=== PATIENT | female | born 1935 | race African-American/Black ===

== ENCOUNTER 2016-07-27 11:44 | Inpatient (IN) | payer MEDICARE, OTHER ==
[~2016-07-27] VITALS: Ht 163.8 cm; Wt 101.9 kg
[~2016-07-27 11:44] MED LIST: ACET325T9 PO; ALPR0.25 PO; AMLO10TA2 PO; ARIP2TAB PO; ATOR40TA59 PO; CETI10TA16 PO; CITA20TA9 PO; CLON0.3T PO; DIPH25CA58 PO; FURO-68 PO; FURO80TA72 PO; HYDR100T24 PO; INSU100C4 SQ; INSU100I17 SQ; INSU100I18 SQ; IPRA3AMP23 IH; ISOS60TA PO; LORA10TA3 PO; LOSA100T6 PO; MAGN400O4 PO; METO100T11 PO; METO100T2 PO; NITR0.4T SL; ONDA4TAB7 PO; PANT40TA3 PO; POLY17PO29 PO; POTASSIUM CHLO10 MEQ PO; SENN8.6T99 PO
[2016-07-27] MEDS ORDERED: IV NORMAL SALINE 500ML BAG 500 ML IV ONE (12:30)
--- NOTE | 2016-07-27 12:40 | PHYS DOC ---
Past Medical History Past Medical History: Anxiety, Bronchitis, Depression, Diabetes-Type II, Hypertension Additional Past Medical Histor: DIARRHEA, URIS, GEN PAIN, N/V, ESOPHAGITIS Past Surgical History: Cholecystectomy, Tonsillectomy, Other Additional Past Surgical Histo: hernia repair Alcohol Use: None Drug Use: None Adult General Chief Complaint Chief Complaint: OTHER COMPLAINTS [facility] HPI Patient is a 81 year old female who presents from nursing facility for acute renal failure. She has not been eating well because she does not like the food. She otherwise denies fever or chills, nausea or vomiting, abdominal pain , constipation, dysuria. States she has loose stools, infrequently, for some time. She denies chest pain, dizziness, lightheadedness. Nursing facility marc labs this morning noting a BUN of 71 and a creatinine of 3.3. Review of Systems Review of Systems Constitutional: Denies fever or chills [] Eyes: Denies change in visual acuity, redness, or eye pain [] HENT: Denies nasal congestion or sore throat [] Respiratory: Denies cough or shortness of breath [] Cardiovascular: No additional information not addressed in HPI [] GI: Denies abdominal pain, nausea, vomiting, bloody stools or diarrhea [] : Denies dysuria or hematuria [] Musculoskeletal: Denies back pain or joint pain [] Integument: Denies rash or skin lesions [] Neurologic: Denies headache, focal weakness or sensory changes [] Endocrine: Denies polyuria or polydipsia [] Current Medications Current Medications Current Medications Medications (Trade) Dose Ordered Sig/Mateo Start Time Stop Time Status Last Admin Dose Admin Acetaminophen (Tylenol) 650 mg PRN Q4HRS PRN 07/27/16 12:45 07/28/16 12:44 Ondansetron HCl (Zofran) 4 mg PRN Q8HRS PRN 07/27/16 12:45 07/28/16 12:44 Sodium Chloride (Iv Sodium Chloride 0.9% 500ml Bag) 500 ml @ 500 mls/hr 1X ONCE 07/27/16 12:30 07/27/16 13:29 Allergies Allergies Allergies Coded Allergies Type Severity Reaction Last Updated Verified Penicillins Allergy Intermediate "Throat itches and closes up" PER PT NO ALLERGY 07/27/16 Yes aspirin Adverse Reaction Intermediate Nausea and Vomiting 07/27/16 Yes Physical Exam Physical Exam Constitutional: Well developed, well nourished, no acute distress, non-toxic appearance. [] HENT: Normocephalic, atraumatic, bilateral external ears normal, oropharynx moist, nose normal. [] Eyes: PERRLA, EOMI, conjunctiva normal, no discharge. [] Neck: Normal range of motion, supple. [] Cardiovascular:Heart rate regular rhythm [] Lungs & Thorax: Bilateral breath sounds clear to auscultation [] Abdomen: Bowel sounds normal, soft, no tenderness. [] Skin: Warm, dry, no erythema, no rash. [] Back: No tenderness, no CVA tenderness. [] Extremities: No tenderness, ROM intact, no edema. [] Neurologic: Alert and oriented to self and situation and place, normal motor function, normal sensory function, no focal deficits noted. [] Psychologic: Affect normal, judgement normal, mood normal. [] Current Patient Data Vital Signs Vital Signs Date Time Temp Pulse Resp B/P Pulse Ox O2 Delivery O2 Flow Rate FiO2 07/27/16 11:49 97.5 64 16 132/63 95 Room Air 97.5 Course & Med Decision Making Course & Med Decision Making Labs sent. External labs viewed showing acute renal failure. Discussed case with Dr. Tang, who agrees with admission and recommends nephrology consultation. Nephrology consult placed. Dragon Disclaimer Dragon Disclaimer This electronic medical record was generated, in whole or in part, using a voice recognition dictation system. Departure Departure Impression: Primary Impression: Acute renal failure Disposition: ADMITTED INPATIENT Condition: STABLE Referrals: YURY TANG MD (PCP) Problem Qualifiers Primary Impression: Acute renal failure Acute renal failure type: unspecified Qualified Code: N17.9 - Acute kidney failure, unspecified Jj CEJA MD July 27, 2016 12:40
[2016-07-27] MEDS ORDERED: IV NORMAL SALINE 1000ML BAG 1,000 ML IV ONE (12:45)
[2016-07-27] MEDS ORDERED: ACETAMINOPHEN 325 MG TABLET. PO PRN ×2 (12:45→18:15)
[2016-07-27] MEDS ORDERED: ONDANSETRON PF 4 MG/2 ML VIAL. IV PRN (12:45)
[2016-07-27 13:12] LABS: BILIRUBIN,URINE NEGATIVE (NEG); GLUCOSE,URINE NEGATIVE (NEG); NITRITE,URINE POSITIVE (NEG); PH,URINE 5.5; PROTEIN,URINE NEGATIVE (NEG-TRACE); UROBILINOGEN,URINE 0.2 mg/dL (0.2 mg/dL)
[2016-07-27 13:24] LABS: BACTERIA,URINE MANY /HPF (0-FEW); RBC,URINE 0 /HPF (0-2); SQUAMOUS EPITHELIAL CELL,UR OCC /LPF
[2016-07-27 13:29] LABS: BASO # 0.1 x10^3/uL (0.0-0.2); BASO % 1 % (0-3); EOS % 1 % (0-3); HEMOGLOBIN 10.3 g/dL (12.0-15.5); LYMPH # 2.6 x10^3/uL (1.0-4.8); LYMPH % 35 % (24-48); MEAN CORPUSCULAR HEMOGLOBIN 28 pg (25-35); MEAN CORPUSCULAR HGB CONC 32 g/dL (31-37); MEAN CORPUSCULAR VOLUME 88 fL (79-100); MONO % 14 % (0-9); NEUT % 49 % (31-73); PLATELET COUNT 237 x10^3/uL (140-400); RED BLOOD COUNT 3.65 x10^6/uL (3.50-5.40); RED CELL DISTRIBUTION WIDTH 14.7 % (11.5-14.5); WHITE BLOOD COUNT 7.5 x10^3/uL (4.0-11.0)
[2016-07-27 13:35] LABS: CALCIUM 9.5 mg/dL (8.5-10.1); CREATININE 3.7 mg/dL (0.6-1.0); GFR 14.3; POTASSIUM 4.9 mmol/L (3.5-5.1)
[2016-07-27 14:00] VITALS: BP 109/50
--- NOTE | 2016-07-27 14:47 | PDOC2 ---
CONSULT Date of Consult Date of Consult DATE: 07/27/16 TIME: 14:46 Reason for Consult Reason for Consult: kulwinder/ ckd iii Referring Physician Referring Physician: Dr Pamela Rios Identification/Chief Complaint Chief Complaint none from pt Problems: Source Source: Chart review, Patient History of Present Illness Reason for Visit: as dictated Past Medical History Cardiovascular: HTN, Hyperlipidemia Pulmonary: Pneumonia GI: GERD, Other Heme/Onc: Anemia NOS Psych: Depression Musculoskeletal: Osteoarthritis, Other Renal/: Chronic renal insuff, Acute renal failure Endocrine: Diabetes, Other Past Surgical History Past Surgical History: Hysterectomy Social History ALCOHOL: none Drugs: None Lives: [facility] Current Problem List Problem List Problems Medical Problems: (1) Acute renal failure Status: Acute Current Medications Current Medications Current Medications Sodium Chloride (Iv Sodium Chloride 0.9% 500ml Bag) 500 ml @ 500 mls/hr 1X ONCE IV ; Start 07/27/16 at 12:30; Stop 07/27/16 at 13:29; Status DC Ondansetron HCl (Zofran) 4 mg PRN Q8HRS PRN IV NAUSEA/VOMITING; Start 07/27/16 at 12:45; Stop 07/28/16 at 12:44 Acetaminophen 650 mg 650 mg PRN Q4HRS PRN PO FEVER; Start 07/27/16 at 12:45; Stop 07/28/16 at 12:44 Sodium Chloride (Iv Sodium Chloride 0.9% 1000ml Bag) 1,000 ml @ 75 mls/hr 1X ONCE IV Last administered on 07/27/16t 14:43; Start 07/27/16 at 12:45; Stop at 02:04 Active Scripts Active Reported Zofran (Ondansetron Hcl) 4 Mg Tablet 1 Tab PO Q6HRS PRN Senokot (Sennosides) 8.6 Mg Tablet 1 Tab PO BID Potassium Chloride 10 Meq Capsule.er 10 Meq PO BID Miralax (Polyethylene Glycol 3350) 17 Gm Powd.pack 1 Packet PO DAILY Imdur (Isosorbide Mononitrate) 60 Mg Tab.er.24h 1 Tab PO DAILY Cetirizine Hcl 10 Mg Tablet 1 Tab PO DAILY Abilify (Aripiprazole) 2 Mg Tablet 1 Tab PO HS Metoprolol Tartrate 100 Mg Tablet 100 Mg PO BID Lasix (Furosemide) 80 Mg Tablet 80 Mg PO Milk Of Magnesia (Magnesium Hydroxide) 400 Mg/5 Ml Oral.susp 400 Mg PO Nitrostat (Nitroglycerin) 0.4 Mg Tab.subl 0.4 Mg SL Novolog (Insulin Aspart) 100 Unit/1 Ml Cartridge 22 Unit SQ BID Protonix (Pantoprazole Sodium) 40 Mg Tablet.dr 40 Mg PO DAILY06 Losartan Potassium 100 Mg Tablet 100 Mg PO QID Loratadine 10 Mg Tablet 10 Mg PO HS Hydralazine Hcl 100 Mg Tablet 100 Mg PO DAILY06 Clonidine Hcl 0.3 Mg Tablet 0.3 Mg PO TID Celexa (Citalopram Hydrobromide) 20 Mg Tablet 30 Mg PO HS Atorvastatin Calcium 40 Mg Tablet 40 Mg PO HS Amlodipine Besylate 10 Mg Tablet 5 Mg PO DAILY Abilify (Aripiprazole) 2 Mg Tablet 2 Mg PO HS Xanax (Alprazolam) 0.25 Mg Tablet 0.25 Mg PO PRN Q8HRS PRN Novolog Flexpen (Insulin Aspart) 100 Unit/1 Ml Insuln.pen 12 Unit SQ TIDAC Milk Of Magnesia (Magnesium Hydroxide) 400 Mg/5 Ml Oral.susp 400 Mg PO PRN Q4HRS PRN Levemir Flexpen (Insulin Detemir) 100 Unit/1 Ml Insuln.pen 45 Unit SQ BID Benadryl (Diphenhydramine Hcl) 25 Mg Capsule 25 Mg PO PRN Q8HRS PRN Duoneb 0.5 Mg-3 Mg/3 Ml Soln (Ipratropium/Albuterol Sulfate) 3 Ml Ampul.neb 3 Ml IH PRN Q4HRS Tylenol (Acetaminophen) 325 Mg Tablet 325 Mg PO PRN Q6HRS Allergies Allergies: Coded Allergies: Penicillins (Verified Allergy, Intermediate, "Throat itches and closes up " PER PT NO ALLERGY, 07/27/16) aspirin (Verified Adverse Reaction, Intermediate, Nausea and Vomiting, 07/27) ROS Review of System GEN: no Fevers no Chills EYES: no new Visual Complaints ENT: no EN Drainage no Hearing deficiets CVS: no Orthopnea no CP RESP: no SOB no MOSQUERA GI: + Nausea no Vomiting + Ch Diarrhea : no Dysuria no Urgency HEME: no easy bruising no Palp Ly Nodes NEURO no Focal Weakness no Sz PSYCH: no Suicidal Ideation ch Depression SKIN: no Rashes ENDO: no Polyuria or Polydipsia no Hot/Cold Intolerance MU SK: Arthraigia no Myalgia Physical Exam Physical Exam General Appearance: Awake Alert Oriented x 3 In no Distress Eyes: VIsion Unchanged Conjunctiva Normal EN: No EN Drainage Mucous Memb. moist Neck: no JVD no JVP Supple no Thyromegaly CVS: S1 S2 ?soft Murmur No Gallop No Rub tr Edema Resp: no Rales no Rhonchi no Acc. Muscle use GI: BAS +ve NO Bruit Non Tender Non Distended - obese : no CVA tenderness; no Suprapubic Tenderness SKIN: no Rashes Breast Exam deferred Mu.Sk: Adequate ROM min Muscle Atrophy Heme: Unable to palpate Obvious LAD n opalp Splenomegaly NEURO: somewhat decreased Strength and Tone Cranial Nerves II - XII grossly intact Psych: ++ Depressed flat affect no Active hallucination Vital Signs Vital Signs Date Time Temp Pulse Resp B/P Pulse Ox O2 Delivery O2 Flow Rate FiO2 07/27/16 13:30 76 20 123/60 94 Room Air 07/27/16 11:49 97.5 97.5 Assessment & Plan KULWINDER: due to Ch Diarrhea VMN, Eval responose to IVF. progression of CKD due to DM/ HTnisve /NS cannot be ruled out. Current FLuid and E-lyte status does not necessitate emergent need for Dialysis. Will re-evaluate for Dialysis in am - Anorexia - ? Uremic prodrome - may need 24-hr Urine to assess renal function if no improvement with IVF CKD III in 2013 with GFR 44 calc. presumed due to DM/ HTnisve /NS Anemia: Check Iron; may need Epogen Transfuse as needed. HTN: Current BP meds reviewed. See orders for changes. ? Vol depeltion - watch UO on IVF H/o Ovarian mass/ cyst on the past CTs - will get Renal US - ma y need re-Ct Discussed Plan of Care and prognosis etc. at length with family (Daughter) Labs Labs Laboratory Tests Test 07/27/16 13:04 07/27/16 13:20 Urine Collection Type U cath Urine Color Yellow Urine Clarity Cloudy Urine pH 5.5 Urine Specific [place] 1.015 Urine Protein Negativemg/dL (NEG-TRACE) Urine Glucose (UA) Negativemg/dL (NEG) Urine Ketones (Stick) Negativemg/dL (NEG) Urine Blood Negative (NEG) Urine Nitrite Positive (NEG) Urine Bilirubin Negative (NEG) Urine Urobilinogen Dipstick 0.2mg/dL (0.2 mg/dL) Urine Leukocyte Esterase Large (NEG) Urine RBC 0/HPF (0-2) Urine WBC 5-10/HPF (0-4) Urine Squamous Epithelial Cells Occ/LPF Urine Bacteria Many/HPF (0-FEW) Urine Hyaline Casts Few/HPF White Blood Count 7.5x10^3/uL (4.0-11.0) Red Blood Count 3.65x10^6/uL (3.50-5.40) Hemoglobin 10.3g/dL (12.0-15.5) Hematocrit 32.0% (36.0-47.0) Mean Corpuscular Volume 88fL (79-100) Mean Corpuscular Hemoglobin 28pg (25-35) Mean Corpuscular Hemoglobin Concent 32g/dL (31-37) Red Cell Distribution Width 14.7% (11.5-14.5) Platelet Count 237x10^3/uL (140-400) Neutrophils (%) (Auto) 49% (31-73) Lymphocytes (%) (Auto) 35% (24-48) Monocytes (%) (Auto) 14% (0-9) Eosinophils (%) (Auto) 1% (0-3) Basophils (%) (Auto) 1% (0-3) Neutrophils # (Auto) 3.6x10^3uL (1.8-7.7) Lymphocytes # (Auto) 2.6x10^3/uL (1.0-4.8) Monocytes # (Auto) 1.0x10^3/uL (0.0-1.1) Eosinophils # (Auto) 0.1x10^3/uL (0.0-0.7) Basophils # (Auto) 0.1x10^3/uL (0.0-0.2) Sodium Level 139mmol/L (136-145) Potassium Level 4.9mmol/L (3.5-5.1) Chloride Level 104mmol/L (98-107) Carbon Dioxide Level 29mmol/L (21-32) Anion Gap 6 (6-14) Blood Urea Nitrogen 74mg/dL (7-20) Creatinine 3.7mg/dL (0.6-1.0) Estimated GFR (Cockcroft-Gault) 14.3 Glucose Level 127mg/dL (70-99) Calcium Level 9.5mg/dL (8.5-10.1) Laboratory Tests Test 07/27/16 13:04 07/27/16 13:20 Urine Collection Type U cath Urine Color Yellow Urine Clarity Cloudy Urine pH 5.5 Urine Specific [place] 1.015 Urine Protein Negativemg/dL (NEG-TRACE) Urine Glucose (UA) Negativemg/dL (NEG) Urine Ketones (Stick) Negativemg/dL (NEG) Urine Blood Negative (NEG) Urine Nitrite Positive (NEG) Urine Bilirubin Negative (NEG) Urine Urobilinogen Dipstick 0.2mg/dL (0.2 mg/dL) Urine Leukocyte Esterase Large (NEG) Urine RBC 0/HPF (0-2) Urine WBC 5-10/HPF (0-4) Urine Squamous Epithelial Cells Occ/LPF Urine Bacteria Many/HPF (0-FEW) Urine Hyaline Casts Few/HPF White Blood Count 7.5x10^3/uL (4.0-11.0) Red Blood Count 3.65x10^6/uL (3.50-5.40) Hemoglobin 10.3g/dL (12.0-15.5) Hematocrit 32.0% (36.0-47.0) Mean Corpuscular Volume 88fL (79-100) Mean Corpuscular Hemoglobin 28pg (25-35) Mean Corpuscular Hemoglobin Concent 32g/dL (31-37) Red Cell Distribution Width 14.7% (11.5-14.5) Platelet Count 237x10^3/uL (140-400) Neutrophils (%) (Auto) 49% (31-73) Lymphocytes (%) (Auto) 35% (24-48) Monocytes (%) (Auto) 14% (0-9) Eosinophils (%) (Auto) 1% (0-3) Basophils (%) (Auto) 1% (0-3) Neutrophils # (Auto) 3.6x10^3uL (1.8-7.7) Lymphocytes # (Auto) 2.6x10^3/uL (1.0-4.8) Monocytes # (Auto) 1.0x10^3/uL (0.0-1.1) Eosinophils # (Auto) 0.1x10^3/uL (0.0-0.7) Basophils # (Auto) 0.1x10^3/uL (0.0-0.2) Sodium Level 139mmol/L (136-145) Potassium Level 4.9mmol/L (3.5-5.1) Chloride Level 104mmol/L (98-107) Carbon Dioxide Level 29mmol/L (21-32) Anion Gap 6 (6-14) Blood Urea Nitrogen 74mg/dL (7-20) Creatinine 3.7mg/dL (0.6-1.0) Estimated GFR (Cockcroft-Gault) 14.3 Glucose Level 127mg/dL (70-99) Calcium Level 9.5mg/dL (8.5-10.1) Images Images Renal US from 11/2014 Right kidney is 9.4 cm without hydronephrosis. Left kidney is 9.5 cm hydronephrosis. Bladder is partially distended. DUGLAS HAN MD July 27, 2016 14:47
[2016-07-27] MEDS ORDERED: MAGNESIUM SULFATE 2GM 50 ML IV PRN (15:00)
[2016-07-27 15:22] LABS: % SAT IRON 34 % (15-34); IRON,SERUM 82 ug/dL (50-170)
[2016-07-27 15:35] LABS: URIC ACID 13.8 mg/dL (2.6-6.0)
--- NOTE | 2016-07-27 16:19 | RAD ---
Indication acute renal failure superimposed on chronic renal disease. Grayscale imaging targeted to the kidneys was performed. Note is made of a previous examination 12/15/2014. The right kidney measures 8.8 x 5.1 x 4.2 cm. No hydronephrosis or solid mass is seen. The urinary bladder appears grossly normal. The left kidney measures 9.1 x 4.5 x 4.9 cm also showing no evidence of hydronephrosis or mass. IMPRESSION: Slightly small kidneys. No hydronephrosis or mass seen associated with either kidney.
[2016-07-27] MEDS ORDERED: ACET325T9 PO (16:46)
[2016-07-27] MEDS ORDERED: FURO40TA4 PO (17:00)
[2016-07-27] MEDS ORDERED: [UNRECOGNIZED DRUG - CODE] TP (17:10)
[2016-07-27] MEDS ORDERED: SPIR25TA PO (17:10)
[2016-07-27] MEDS ORDERED: CALC500T PO (17:13)
[2016-07-27] MEDS ORDERED: CLON1PAT2 TD (17:13)
[2016-07-27] MEDS ORDERED: DIVA125C PO (17:16)
[2016-07-27] MEDS ORDERED: DEXT38GE2 PO (17:49)
[2016-07-27] MEDS ORDERED: SENN-37 PO (17:49)
[2016-07-27] MEDS ORDERED: METO10SO PO (17:49)
[2016-07-27] MEDS ORDERED: FERR-26 PO (17:49)
[2016-07-27] MEDS ORDERED: MIRT15TA PO (17:49)
[2016-07-27] MEDS ORDERED: GLUC1KIT IM (17:49)
[2016-07-27] MEDS ORDERED: MONT10TA9 PO (17:50)
[2016-07-27] MEDS ORDERED: INSU100I13 SQ (17:52)
[2016-07-27] MEDS ORDERED: INSU100C SQ ×2 (17:52→17:56)
[2016-07-27] MEDS ORDERED: NON FORMULARY ITEM (Glucagon,Human Recombinant (Glucagon Emergency Kit) 1 MG) IM SCH (18:15)
[2016-07-27] MEDS ORDERED: CALCIUM CARBONATE 500 MG TABLET PO PRN (18:15)
[2016-07-27] MEDS ORDERED: SENNOSIDES/DOCUSATE 8.6/50MG TABLET. PO PRN (18:15)
[2016-07-27] MEDS ORDERED: SENNOSIDES 8.6 MG TABLET PO PRN (18:15)
[2016-07-27] MEDS: HYDROcodone/APAP 7.5/325MG 1 TAB TABLET PO PRN (18:34)
--- NOTE | 2016-07-27 18:34 | ACF ---
Admission Forms Criteria RENAL FAILURE, ACUTE Clinical Indications for Admission to Inpatient Care ( Place 'X' for any and all applicable criteria): Admission is indicated for ALL (if I & II) or III of the following [A](2)(3)(4)( 5)(6)(7): [ ]I. Acute renal failure as indicated by ANY ONE of the following: [ ]a) A 3-fold rise in serum creatinine from baseline [ ]b) Serum creatinine greater than 4 mg/dL (354 micromoles/L) with an acute rise greater than 0.5 mg/dL (44.2 micromoles/L) [ ]c) Reduction of more than 75% in estimated glomerular filtration rate from baseline [ ]d) Estimated glomerular filtration rate less than 35 mL/min/1.73m2 (0.59mL/sec/1.73m2)in a child up to 18 years of age [ ]e) Anuria indicated by ALL of the following: [ ]i) Adequate volume status [ ]ii) Cessation of urine output indicated by ANY ONE of the following: [ ]1) Urine output less than 0.3 mL/kg/hr for 24 hours [ ]2) Anuria (urine output less than 0.1 mL/kg/ hr) for 12 hours [ ] II. Renal failure cannot be managed in an outpatient setting or observational care setting as indicating by ANY ONE of the following: [ ]a) Altered mental status that is severe or persistent [ ]b) Volume overload or Respiratory distress (eg, clinically significant pulmonary edema) that is severe or persistent [ ]c) Cardiac arrhythmias of immediate concern [ ]d) Hemodynamic instability [ ]e) Clinically significant electrolyte abnormality that requires inpatient care (eg, hyperkalemia with severe ECG findings)[B] [ ]f) Clinically significant metabolic abnormality (eg, acidosis) that is severe or persistent [ ]g) Acute treatment of renal failure (eg, renal replacement therapy) not feasible or appropriate in observational care setting [ ]h) Clinical situation too unstable or uncertain (eg, inadequate urine output, ongoing decline in renal function, etiology unclear) [ ]i) Necessary support and caregiver ability to comply with outpatient treatment cannot be arranged in observation care timeframe (eg, within 24 hours) [ ]j) Other significant finding or clinical condition judged not to be within scope of observation care [X]III.General contraindications and/or Inappropriate clinical situations for Observational Care in patients with Acute Renal Failure, when ANY ONE of the following is required: [X]a) Prediction of prolongation of LOS based on ANY ONE of the following may be considered as a contraindication for observational care 2, 3, 4, 5, 6, 7, 8 , 9, 10, 11 [X]i) Age > 65 yrs. [ ]ii) Patient arriving by ambulance [ ]iii) Patient with high acuity [ ]iv) Patient requiring vital sign monitoring [ ]v) Patient on IV medication [ ]b) Systolic blood pressures 180mmHg 3,12 [ ]c) Patient with altered mental status including delirium and other alteration of consciousness, (3) [ ]d) Patient whose discharge disposition will be to a senior care home or rehabilitation home should not be managed in Emergency Department Observation Unit. CMS rule requires 3 days hospital stay before such placement.3,13 [ ]e) Patient with failure to thrive due to broad array of etiologies 3, 16,17 [ ]f) Inability to ambulate 3,14 Extended stay beyond goal length of stay may be needed for(13) [ ]a) Continuing uremic complications [ ]b) Care for comorbidities [ ]c) acute renal failure [ ]d) Need for dialysis The original [employer] content created by [employer] has been revised. The portions of the content which have been revised are identified through the use of italic text or in bold, and [facility] has neither reviewed nor approved the modified material. All other unmodified content is copyright [employer]. Please see references footnoted in the original [employer] edition 2016 Admission Criteria Met?: Yes ARTEMIO REYES July 27, 2016 18:34
[2016-07-27 20:00] VITALS: BP 141/57
[2016-07-27] MEDS ORDERED: INSULIN DETEMIR 300 UNITS/3 ML INSULN.PEN. SQ SCH (21:00)
[2016-07-27] MEDS: DIVALPROEX SPRINKLES 125 MG CAPSULE. PO SCH (21:01)
[2016-07-27] MEDS: METOPROLOL TART IMMED RELEASE 50 MG TABLET. PO SCH (21:01)
[2016-07-27] MEDS: METOCLOPRAMIDE HCL 10 MG/10 ML SOLUTION. PO SCH (21:01)
[2016-07-27] MEDS: MIRTAZAPINE 15 MG TABLET PO SCH (21:01)
[2016-07-27] MEDS: MONTELUKAST SODIUM 10 MG TABLET. PO SCH (21:01)
[2016-07-27] MEDS: diphenhydrAMINE HCL 25 MG CAPSULE PO SCH (22:51)
[2016-07-27 23:00] VITALS: BP 157/69
[2016-07-28 03:00] VITALS: BP 159/86
--- NOTE | 2016-07-28 03:59 | CONS ---
DATE OF CONSULTATION: PRIMARY PHYSICIAN: Dr. Pamela Rios. REASON FOR CONSULTATION: Acute on chronic renal insufficiency. HISTORY OF PRESENT ILLNESS: The patient is a 81-year-old -[place] female who was last seen at this hospital in 2013 in December. At that time, her creatinine was 1.4. A corresponding GFR at that time was about 44 mL per minute. Her creatinine is now up to 3.7 and a GFR of 14.3. We were asked to see her for further evaluation of the same. She presented from nursing facility for acute renal failure as well as poor p.o. intake. She claims she has had diarrhea, but this seems to be a chronic problem. She claims she does not like the food and has not been eating. Denies nausea, vomiting per se. No chest pain, no dizziness, lightheadedness per se. PAST MEDICAL HISTORY: Positive for longstanding diabetes, hypertension, exogenous obesity, anxiety, bronchitis, depression, chronic diarrhea, generalized pain, history of nausea, vomiting and esophagitis in the past, cholecystectomy, tonsillectomy, hernia repair, CKD stage 3, hysterectomy, incontinence, history of smoking, adenoidectomy, , history of cardiac disease, details not known. Imaging studies also revealed that she has significant atherosclerotic vascular disease and plaquing of her aorta and its branches including coronaries, thyroid nodule, calcified right hilar lymph nodes with old granulomatous disease on CT scans. Most recent renal ultrasound is reviewed below. FAMILY HISTORY: Negative for known kidney problems that I can ascertain from the family. For rest of the details, see electronic records. DUGLAS HAN MD DR: DANNY/etienne JOB#: [id number] / [id number]
[2016-07-28 05:04] LABS: BASO # 0.1 x10^3/uL (0.0-0.2); BASO % 1 % (0-3); EOS % 2 % (0-3); HEMATOCRIT 29.7 % (36.0-47.0); HEMOGLOBIN 9.5 g/dL (12.0-15.5); LYMPH # 3.9 x10^3/uL (1.0-4.8); LYMPH % 45 % (24-48); MEAN CORPUSCULAR HEMOGLOBIN 28 pg (25-35); MEAN CORPUSCULAR HGB CONC 32 g/dL (31-37); MEAN CORPUSCULAR VOLUME 87 fL (79-100); MONO % 14 % (0-9); NEUT % 39 % (31-73); PLATELET COUNT 233 x10^3/uL (140-400); RED CELL DISTRIBUTION WIDTH 14.4 % (11.5-14.5); WHITE BLOOD COUNT 8.7 x10^3/uL (4.0-11.0)
[2016-07-28 05:30] LABS: ALBUMIN/GLOBULIN RATIO 0.8 (1.0-1.7); CALCIUM 8.9 mg/dL (8.5-10.1); CREATININE 3.1 mg/dL (0.6-1.0); GFR 17.5; MAGNESIUM 2.7 mg/dL (1.8-2.4); PHOSPHORUS 4.4 mg/dL (2.6-4.7); POTASSIUM 4.2 mmol/L (3.5-5.1); TOTAL BILIRUBIN 0.3 mg/dL (0.2-1.0); TOTAL PROTEIN 6.9 g/dL (6.4-8.2)
[2016-07-28] MEDS: diphenhydrAMINE HCL 25 MG CAPSULE PO SCH (05:48)
[2016-07-28 07:00] VITALS: BP 148/52
[2016-07-28] MEDS: METOCLOPRAMIDE HCL 10 MG/10 ML SOLUTION. PO SCH ×4 (08:01→21:13)
[2016-07-28] MEDS ORDERED: cloNIDine TTS-2 1 PATCH PATCH TD SCH (09:00)
[2016-07-28] MEDS: INSULIN ASPART 300 UNITS/3 ML INSULN.PEN SQ SCH ×2 (09:00→16:30)
[2016-07-28] MEDS ORDERED: ISOSORBIDE MONONITRATE ER 60 MG TAB.ER.24H. PO SCH (09:00)
[2016-07-28] MEDS ORDERED: diphenhydrAMINE HCL 25 MG CAPSULE PO PRN (09:00)
[2016-07-28] MEDS: METOPROLOL TART IMMED RELEASE 50 MG TABLET. PO SCH ×2 (09:06→21:12)
[2016-07-28] MEDS: MICONAZOLE NITRATE 2% TOPICAL CREAM 28GM TUBE. TP SCH (09:06)
[2016-07-28] MEDS: FERROUS SULFATE 325 MG TABLET. PO SCH (09:06)
[2016-07-28] MEDS: amLODIPine BESYLATE 5 MG TABLET PO SCH (09:07)
[2016-07-28] MEDS: CETIRIZINE HCL 10 MG TABLET. PO SCH (09:07)
[2016-07-28] MEDS: ISOSORBIDE MONONITRATE ER 30 MG TAB.ER.24H PO SCH (09:07)
--- NOTE | 2016-07-28 09:08 | PDOC1 ---
MARCUS HAWTHORNE WHEEL ADJUSTER 07/28/16 0908: HISTORY AND PHYSICAL Chief Complaint Chief Complaint This 81 year old male has been admitted with a chief complaint of weakness and loss of appetite. Lab at [facility] BUN 71 Cr 3.3. Sent to ED for evaluation. Zofran, tylenol and 500cc NS given. Admitted to medical surgical unit. Problem List Problems Medical Problems: (1) Acute renal failure Status: Acute Past Medical History Cardiovascular: HTN, Hyperlipidemia Pulmonary: Pneumonia (h/o aspiration ) GI: GERD, Other Heme/Onc: Anemia NOS (fe deficiency ), Other (h/o gastritis, multiple gastric erosions ) Psych: Depression Musculoskeletal: low back pain (chronic LBP ), Osteoarthritis, Other Renal/: Chronic renal insuff (CKD III secondary to HTN/DM ) Endocrine: Diabetes (with nephropathy ), Other (h/o 1.6cm thyroid nodule ) Past Surgical History Past Surgical History: Hernia Repair, Hysterectomy Past Family History PFH unable to recall Past Social History PSH resides at [facility], no h/o tobacco, ETOH, or illicit drugs Review of Symptoms Review of Symptoms A 14 point ROS was completed with the following noted as positive: weakness, decreased appetite, diarrhea. no chest pain, worsening SOA, or abd pain Other systems reviewed and negative. Medications Medications reviewed and reconciled Allergy Allergies Coded Allergies Type Severity Reaction Last Updated Verified Penicillins Allergy Intermediate "Throat itches and closes up" PER PT NO ALLERGY 07/27/16 Yes citalopram Allergy Intermediate Unknown 07/27/16 Yes aspirin Adverse Reaction Intermediate Nausea and Vomiting 07/27/16 Yes Physical Exam Physical Exam General appearance - lethargic, ill appearing, and in no distress Mental Status - alert, oriented to person, place, and time, lethargic Head - normal Chest - clear to auscultation, no wheezes, rales or rhonchi, symmetric air entry Heart - S1 and S2 normal Abdomen - soft, nontender, nondistended, BS+, obese Neurological - mentally dull, lethargic otherwise negative assessment Musculoskeletal - no muscular tenderness noted Extremities - no pedal edema Skin - warm and dry VTE Prophylaxis Ordered VTE Prophylaxis Devices: Yes VTE Pharmacological Prophylaxi: No Assessment Labs Laboratory Tests Test 07/27/16 12:30 07/27/16 13:04 07/27/16 13:20 07/27/16 14:15 Reticulocyte Count (auto) 0.9% (0.5-2.5) Lactic Acid Level 1.1mmol/L (0.4-2.0) Uric Acid 13.8mg/dL (2.6-6.0) Iron Level 82ug/dL (50-170) Total Iron Binding Capacity 239ug/dL (250-450) Iron Saturation 34% (15-34) Ferritin 155ng/mL (8-252) Creatine Kinase 88U/L (26-192) Urine Collection Type U cath Urine Color Yellow Urine Clarity Cloudy Urine pH 5.5 Urine Specific Igo 1.015 Urine Protein Negativemg/dL (NEG-TRACE) Urine Glucose (UA) Negativemg/dL (NEG) Urine Ketones (Stick) Negativemg/dL (NEG) Urine Blood Negative (NEG) Urine Nitrite Positive (NEG) Urine Bilirubin Negative (NEG) Urine Urobilinogen Dipstick 0.2mg/dL (0.2 mg/dL) Urine Leukocyte Esterase Large (NEG) Urine RBC 0/HPF (0-2) Urine WBC 5-10/HPF (0-4) Urine Squamous Epithelial Cells Occ/LPF Urine Bacteria Many/HPF (0-FEW) Urine Hyaline Casts Few/HPF White Blood Count 7.5x10^3/uL (4.0-11.0) Red Blood Count 3.65x10^6/uL (3.50-5.40) Hemoglobin 10.3g/dL (12.0-15.5) Hematocrit 32.0% (36.0-47.0) Mean Corpuscular Volume 88fL (79-100) Mean Corpuscular Hemoglobin 28pg (25-35) Mean Corpuscular Hemoglobin Concent 32g/dL (31-37) Red Cell Distribution Width 14.7% (11.5-14.5) Platelet Count 237x10^3/uL (140-400) Neutrophils (%) (Auto) 49% (31-73) Lymphocytes (%) (Auto) 35% (24-48) Monocytes (%) (Auto) 14% (0-9) Eosinophils (%) (Auto) 1% (0-3) Basophils (%) (Auto) 1% (0-3) Neutrophils # (Auto) 3.6x10^3uL (1.8-7.7) Lymphocytes # (Auto) 2.6x10^3/uL (1.0-4.8) Monocytes # (Auto) 1.0x10^3/uL (0.0-1.1) Eosinophils # (Auto) 0.1x10^3/uL (0.0-0.7) Basophils # (Auto) 0.1x10^3/uL (0.0-0.2) Sodium Level 139mmol/L (136-145) Potassium Level 4.9mmol/L (3.5-5.1) Chloride Level 104mmol/L (98-107) Carbon Dioxide Level 29mmol/L (21-32) Anion Gap 6 (6-14) Blood Urea Nitrogen 74mg/dL (7-20) Creatinine 3.7mg/dL (0.6-1.0) Estimated GFR (Cockcroft-Gault) 14.3 Glucose Level 127mg/dL (70-99) Calcium Level 9.5mg/dL (8.5-10.1) Nasal Screen MRSA (PCR) Positive (Negative) Test 07/27/16 14:33 07/27/16 20:59 07/28/16 04:25 07/28/16 07:12 Glucose (Fingerstick) 130mg/dL (70-99) 162mg/dL (70-99) 94mg/dL (70-99) White Blood Count 8.7x10^3/uL (4.0-11.0) Red Blood Count 3.40x10^6/uL (3.50-5.40) Hemoglobin 9.5g/dL (12.0-15.5) Hematocrit 29.7% (36.0-47.0) Mean Corpuscular Volume 87fL (79-100) Mean Corpuscular Hemoglobin 28pg (25-35) Mean Corpuscular Hemoglobin Concent 32g/dL (31-37) Red Cell Distribution Width 14.4% (11.5-14.5) Platelet Count 233x10^3/uL (140-400) Neutrophils (%) (Auto) 39% (31-73) Lymphocytes (%) (Auto) 45% (24-48) Monocytes (%) (Auto) 14% (0-9) Eosinophils (%) (Auto) 2% (0-3) Basophils (%) (Auto) 1% (0-3) Neutrophils # (Auto) 3.4x10^3uL (1.8-7.7) Lymphocytes # (Auto) 3.9x10^3/uL (1.0-4.8) Monocytes # (Auto) 1.2x10^3/uL (0.0-1.1) Eosinophils # (Auto) 0.1x10^3/uL (0.0-0.7) Basophils # (Auto) 0.1x10^3/uL (0.0-0.2) Sodium Level 140mmol/L (136-145) Potassium Level 4.2mmol/L (3.5-5.1) Chloride Level 107mmol/L (98-107) Carbon Dioxide Level 26mmol/L (21-32) Anion Gap 7 (6-14) Blood Urea Nitrogen 66mg/dL (7-20) Creatinine 3.1mg/dL (0.6-1.0) Estimated GFR (Cockcroft-Gault) 17.5 BUN/Creatinine Ratio 21 (6-20) Glucose Level 43mg/dL (70-99) Calcium Level 8.9mg/dL (8.5-10.1) Phosphorus Level 4.4mg/dL (2.6-4.7) Magnesium Level 2.7mg/dL (1.8-2.4) Total Bilirubin 0.3mg/dL (0.2-1.0) Aspartate Amino Transf (AST/SGOT) 14U/L (15-37) Alanine Aminotransferase (ALT/SGPT) 15U/L (14-59) Alkaline Phosphatase 66U/L (46-116) Total Protein 6.9g/dL (6.4-8.2) Albumin 3.0g/dL (3.4-5.0) Albumin/Globulin Ratio 0.8 (1.0-1.7) Laboratory Tests Test 07/27/16 12:30 07/27/16 13:04 07/27/16 13:20 07/27/16 14:15 Reticulocyte Count (auto) 0.9% (0.5-2.5) Lactic Acid Level 1.1mmol/L (0.4-2.0) Uric Acid 13.8mg/dL (2.6-6.0) Iron Level 82ug/dL (50-170) Total Iron Binding Capacity 239ug/dL (250-450) Iron Saturation 34% (15-34) Ferritin 155ng/mL (8-252) Creatine Kinase 88U/L (26-192) Urine Collection Type U cath Urine Color Yellow Urine Clarity Cloudy Urine pH 5.5 Urine Specific Igo 1.015 Urine Protein Negativemg/dL (NEG-TRACE) Urine Glucose (UA) Negativemg/dL (NEG) Urine Ketones (Stick) Negativemg/dL (NEG) Urine Blood Negative (NEG) Urine Nitrite Positive (NEG) Urine Bilirubin Negative (NEG) Urine Urobilinogen Dipstick 0.2mg/dL (0.2 mg/dL) Urine Leukocyte Esterase Large (NEG) Urine RBC 0/HPF (0-2) Urine WBC 5-10/HPF (0-4) Urine Squamous Epithelial Cells Occ/LPF Urine Bacteria Many/HPF (0-FEW) Urine Hyaline Casts Few/HPF White Blood Count 7.5x10^3/uL (4.0-11.0) Red Blood Count 3.65x10^6/uL (3.50-5.40) Hemoglobin 10.3g/dL (12.0-15.5) Hematocrit 32.0% (36.0-47.0) Mean Corpuscular Volume 88fL (79-100) Mean Corpuscular Hemoglobin 28pg (25-35) Mean Corpuscular Hemoglobin Concent 32g/dL (31-37) Red Cell Distribution Width 14.7% (11.5-14.5) Platelet Count 237x10^3/uL (140-400) Neutrophils (%) (Auto) 49% (31-73) Lymphocytes (%) (Auto) 35% (24-48) Monocytes (%) (Auto) 14% (0-9) Eosinophils (%) (Auto) 1% (0-3) Basophils (%) (Auto) 1% (0-3) Neutrophils # (Auto) 3.6x10^3uL (1.8-7.7) Lymphocytes # (Auto) 2.6x10^3/uL (1.0-4.8) Monocytes # (Auto) 1.0x10^3/uL (0.0-1.1) Eosinophils # (Auto) 0.1x10^3/uL (0.0-0.7) Basophils # (Auto) 0.1x10^3/uL (0.0-0.2) Sodium Level 139mmol/L (136-145) Potassium Level 4.9mmol/L (3.5-5.1) Chloride Level 104mmol/L (98-107) Carbon Dioxide Level 29mmol/L (21-32) Anion Gap 6 (6-14) Blood Urea Nitrogen 74mg/dL (7-20) Creatinine 3.7mg/dL (0.6-1.0) Estimated GFR (Cockcroft-Gault) 14.3 Glucose Level 127mg/dL (70-99) Calcium Level 9.5mg/dL (8.5-10.1) Nasal Screen MRSA (PCR) Positive (Negative) Test 07/27/16 14:33 07/27/16 20:59 07/28/16 04:25 07/28/16 07:12 Glucose (Fingerstick) 130mg/dL (70-99) 162mg/dL (70-99) 94mg/dL (70-99) White Blood Count 8.7x10^3/uL (4.0-11.0) Red Blood Count 3.40x10^6/uL (3.50-5.40) Hemoglobin 9.5g/dL (12.0-15.5) Hematocrit 29.7% (36.0-47.0) Mean Corpuscular Volume 87fL (79-100) Mean Corpuscular Hemoglobin 28pg (25-35) Mean Corpuscular Hemoglobin Concent 32g/dL (31-37) Red Cell Distribution Width 14.4% (11.5-14.5) Platelet Count 233x10^3/uL (140-400) Neutrophils (%) (Auto) 39% (31-73) Lymphocytes (%) (Auto) 45% (24-48) Monocytes (%) (Auto) 14% (0-9) Eosinophils (%) (Auto) 2% (0-3) Basophils (%) (Auto) 1% (0-3) Neutrophils # (Auto) 3.4x10^3uL (1.8-7.7) Lymphocytes # (Auto) 3.9x10^3/uL (1.0-4.8) Monocytes # (Auto) 1.2x10^3/uL (0.0-1.1) Eosinophils # (Auto) 0.1x10^3/uL (0.0-0.7) Basophils # (Auto) 0.1x10^3/uL (0.0-0.2) Sodium Level 140mmol/L (136-145) Potassium Level 4.2mmol/L (3.5-5.1) Chloride Level 107mmol/L (98-107) Carbon Dioxide Level 26mmol/L (21-32) Anion Gap 7 (6-14) Blood Urea Nitrogen 66mg/dL (7-20) Creatinine 3.1mg/dL (0.6-1.0) Estimated GFR (Cockcroft-Gault) 17.5 BUN/Creatinine Ratio 21 (6-20) Glucose Level 43mg/dL (70-99) Calcium Level 8.9mg/dL (8.5-10.1) Phosphorus Level 4.4mg/dL (2.6-4.7) Magnesium Level 2.7mg/dL (1.8-2.4) Total Bilirubin 0.3mg/dL (0.2-1.0) Aspartate Amino Transf (AST/SGOT) 14U/L (15-37) Alanine Aminotransferase (ALT/SGPT) 15U/L (14-59) Alkaline Phosphatase 66U/L (46-116) Total Protein 6.9g/dL (6.4-8.2) Albumin 3.0g/dL (3.4-5.0) Albumin/Globulin Ratio 0.8 (1.0-1.7) Plan Plan 1. acute renal failure KULWINDER, VMN with underlying CKD III 2. acute metabolic encephalopathy 3. UTI 4. anemia chronic disease renal/fe 5. elevated uric acid 6. DM II with nephropathy 7. CKD III hypertension/diabetes 8. hypertension 9. diarrhea 10. HTN 11. hyperlipidemia 12. GERD 13. chronic LBP 14. severe weakness and debility 15. severe PCL malnutrition -anorexia 16. OA generalized 17. thyroid nodule 1.6cm PLAN: ARF nephrology consult Admit BUN 74 05/02 66 Cr 3.7 3.1 Na 139 140 K 4.9 4.2 uric acid 13.8 IVF in ED otherwise no IVF ?gout-start colcrys? Begin IVF NS 50cc/hr acute metabolic encephalopathy monitor DM II with hypoglycemia appetite decreased BS 0400 43 Decrease Levemir to 40units daily continue SSI low intensity BS 127-162 prior to 0400, this AM 94 Diet changed to cardiac: not on ADA diet at ID. UTI no sepsis + nitrite, neg blood, + leukoesterase Begin Rocephin 1gm IV until urine CS results available h/o cefepime w/o reaction lactic acid 1.1 anemia h/o fe deficiency, on ferrous sulfate Fe 82, TIBC 239, Fe sat 34, Ferritin 155 Admit 10.3 05/02 9.5 severe weakness and debility PT OT severe PCL malnutrition monitor oral intake thyroid nodule check TSH T4 DVT/GI prophylaxis SCD/BHAVANI PPI For more details regarding further plans, please refer to the orders. YURY TANG MD 07/28/16 1001: HISTORY AND PHYSICAL Chief Complaint Chief Complaint Sleeping- unable to wake up.Unable to do systems review. Plan Plan The patient was seen and examined by me. Chart reviewed and plan of care formulated. Discussed with, reviewed and agree with ENGLISH AND READING INSTRUCTOR's notes, plan of care and orders with modifications as necessary. For more details regarding further plans, please refer to the orders. MARCUS HAWTHORNE APRN July 28, 2016 09:08 YURY TANG MD July 28, 2016 10:01
[2016-07-28] MEDS: MUPIROCIN 2 % NASAL OINTMENT 22GM TUBE. NS SCH ×2 (09:43→21:13)
[2016-07-28] MEDS: IV NORMAL SALINE 1000ML BAG 1,000 ML IV SCH ×2 (09:43→22:50)
[2016-07-28 11:00] VITALS: BP 123/51
[2016-07-28 15:00] VITALS: BP 148/49
[2016-07-28 16:17] LABS: UR PROTEIN RD 13.2 mg/dL (Not Estab.)
--- NOTE | 2016-07-28 17:02 | PDOC ---
SUBJECTIVE ROS KULWINDER/ CKD III Pt asleep, somewhat difficult to arouse OBJECTIVE Vital Signs Vital Signs Date Time Temp Pulse Resp B/P Pulse Ox O2 Delivery O2 Flow Rate FiO2 07/28/16 11:00 97.9 73 17 123/51 94 Room Air 97.9 I & 0 Intake and Output 07/28/16 07:00 Intake Total 1490 ml Output Total 1 ml Balance 1489 ml Intake Oral 490 ml IV Total 1000 ml Output Urine Total 1 ml # Voids 3 PHYSICAL EXAM Physical Exam GEN: Asleep, Oriented x 0, In no distress EYES: Vision Unchanged, Conjunctiva Normal EN: No EN Drainage, Mucous Membranes moist, drooling NECK: no JVD, no JVP, Supple, no Thyromegaly CVS: S1S2, ? Murmur, No Gallop, No Rub,no Edema RESP: no Rales, no Rhonchi,no Acc. Muscle Use GI: BS + ve, NO Bruit, Non Tender, Non Distended - obese : no CVA tenderness, no Suprapubic Tenderness DIAGNOSIS/ASSESSMENT Assessment & Plan KULWINDER: ? due to Ch Diarrhea VMN, UO is frequent per RN but not documentable due to incotinence. responding to IVF. progression of CKD due to DM/ HTnisve / NS cannot be ruled out. Current FLuid and E-lyte status does not necessitate emergent need for Dialysis. Will re-evaluate for Dialysis in am - Anorexia - ? Uremic prodrome - may need 24-hr Urine to assess renal function CKD III in 2013 (now suspect closer to stage IV) with GFR 44 calc. presumed due to DM/ HTnisve /NS Anemia: Good on Iron; hence start Epogen Transfuse as needed. HTN: Current BP meds reviewed. See orders for changes. ? Vol depeltion - watch UO on IVF with menjivar placement H/o Ovarian mass/ cyst on the past CTs - no mention on Renal US , no hydronephrosis per se Problems: COMMENT/RELEVANT DATA Meds Current Medications Medications (Trade) Dose Ordered Sig/Mateo Start Time Stop Time Status Last Admin Dose Admin Acetaminophen (Tylenol) 650 mg PRN Q6HRS PRN 07/27/16 18:15 Acetaminophen 650 mg 650 mg PRN Q4HRS PRN 07/27/16 12:45 07/28/16 12:44 DC Acetaminophen/ Hydrocodone Bitart (Lortab 7.5/325) 1 tab PRN Q6HRS PRN 07/27/16 18:00 07/27/16 18:34 1 TAB Amlodipine Besylate (Norvasc) 5 mg DAILY 07/28/16 09:00 07/28/16 09:07 5 MG Calcium Carbonate/ Glycine (Oscal) 1,000 mg PRN Q4HRS PRN 07/27/16 18:15 Ceftriaxone Sodium/Sodium Chloride (Rocephin/Iv Sodium Chloride 0.9% 50ml) 50 ml @ 100 mls/hr Q24H 07/28/16 10:00 07/28/16 09:50 100 MLS/HR Cetirizine HCl (Zyrtec) 10 mg DAILY 07/28/16 09:00 07/28/16 09:07 10 MG Clonidine HCl (Catapres Tts-2) 1 patch We 07/29/16 09:00 Diphenhydramine HCl (Benadryl) 25 mg PRN Q6HRS PRN 07/28/16 09:00 Divalproex Sodium (Depakote Sprinkles) 125 mg HS 07/27/16 21:00 07/27/16 21:01 125 MG Ferrous Sulfate (Feosol) 325 mg DAILY 07/28/16 09:00 07/28/16 09:06 325 MG Hydralazine HCl (Apresoline) 100 mg [id number] 07/28/16 19:00 Insulin Aspart (Novolog) 0-8 [id number] 07/28/16 09:00 Insulin Detemir (Levemir) 50 units QHS 07/27/16 21:00 07/28/16 09:35 DC 07/27/16 21:06 50 UNITS Insulin Detemir 40 units 40 units QHS 07/28/16 21:00 Isosorbide Mononitrate (Imdur) 60 mg DAILY 07/28/16 09:00 07/28/16 09:07 60 MG Magnesium Sulfate/ Dextrose (Magnesium Sulfate PREMIX 2GM) 50 ml @ 25 mls/hr PRN DAILY PRN 07/27/16 15:00 Metoclopramide HCl (Reglan) 5 mg QIDACHS 07/27/16 21:00 07/28/16 16:38 5 MG Metoprolol Tartrate (Lopressor) 100 mg BID 07/27/16 21:00 07/28/16 09:06 100 MG Miconazole Nitrate (Monistat-Derm) 1 hu DAILY 07/28/16 09:00 07/28/16 09:06 1 HU Mirtazapine (Remeron) 15 mg QHS 07/27/16 21:00 07/27/16 21:01 15 MG Montelukast Sodium (Singulair) 10 mg HS 07/27/16 21:00 07/27/16 21:01 10 MG Mupirocin 1 hu 1 hu BID 07/28/16 10:00 07/28/16 09:43 1 HU Non-Formulary Medication 1 mg PRN 07/27/16 18:15 UNV Ondansetron HCl (Zofran) 4 mg PRN Q8HRS PRN 07/27/16 12:45 07/28/16 12:44 DC Senna/Docusate Sodium (Senna Plus) 1 tab PRN DAILY PRN 07/27/16 18:15 Sennosides (Senna) 8.6 mg PRN DAILY PRN 07/27/16 18:15 07/28/16 09:01 DC Sodium Chloride (Iv Sodium Chloride 0.9% 500ml Bag) 500 ml @ 500 mls/hr 1X ONCE 07/27/16 12:30 07/27/16 13:29 DC 07/27/16 12:30 500 MLS/HR Sodium Chloride (Iv Sodium Chloride 0.9% 1000ml Bag) 1,000 ml @ 75 mls/hr [id number] 07/28/16 09:30 07/28/16 09:43 75 MLS/HR Lab Laboratory Tests Test 07/27/16 20:59 07/28/16 04:25 07/28/16 07:12 07/28/16 10:40 Glucose (Fingerstick) 162mg/dL (70-99) 94mg/dL (70-99) 141mg/dL (70-99) White Blood Count 8.7x10^3/uL (4.0-11.0) Red Blood Count 3.40x10^6/uL (3.50-5.40) Hemoglobin 9.5g/dL (12.0-15.5) Hematocrit 29.7% (36.0-47.0) Mean Corpuscular Volume 87fL (79-100) Mean Corpuscular Hemoglobin 28pg (25-35) Mean Corpuscular Hemoglobin Concent 32g/dL (31-37) Red Cell Distribution Width 14.4% (11.5-14.5) Platelet Count 233x10^3/uL (140-400) Neutrophils (%) (Auto) 39% (31-73) Lymphocytes (%) (Auto) 45% (24-48) Monocytes (%) (Auto) 14% (0-9) Eosinophils (%) (Auto) 2% (0-3) Basophils (%) (Auto) 1% (0-3) Neutrophils # (Auto) 3.4x10^3uL (1.8-7.7) Lymphocytes # (Auto) 3.9x10^3/uL (1.0-4.8) Monocytes # (Auto) 1.2x10^3/uL (0.0-1.1) Eosinophils # (Auto) 0.1x10^3/uL (0.0-0.7) Basophils # (Auto) 0.1x10^3/uL (0.0-0.2) Sodium Level 140mmol/L (136-145) Potassium Level 4.2mmol/L (3.5-5.1) Chloride Level 107mmol/L (98-107) Carbon Dioxide Level 26mmol/L (21-32) Anion Gap 7 (6-14) Blood Urea Nitrogen 66mg/dL (7-20) Creatinine 3.1mg/dL (0.6-1.0) Estimated GFR (Cockcroft-Gault) 17.5 BUN/Creatinine Ratio 21 (6-20) Glucose Level 43mg/dL (70-99) Calcium Level 8.9mg/dL (8.5-10.1) Phosphorus Level 4.4mg/dL (2.6-4.7) Magnesium Level 2.7mg/dL (1.8-2.4) Total Bilirubin 0.3mg/dL (0.2-1.0) Aspartate Amino Transf (AST/SGOT) 14U/L (15-37) Alanine Aminotransferase (ALT/SGPT) 15U/L (14-59) Alkaline Phosphatase 66U/L (46-116) Total Protein 6.9g/dL (6.4-8.2) Albumin 3.0g/dL (3.4-5.0) Albumin/Globulin Ratio 0.8 (1.0-1.7) Test 07/28/16 16:39 Glucose (Fingerstick) 141mg/dL (70-99) Other The right kidney measures 8.8 x 5.1 x 4.2 cm. No hydronephrosis or solid mass is seen. The urinary bladder appears grossly normal. The left kidney measures 9.1 x 4.5 x 4.9 cm also showing no evidence of hydronephrosis or mass. IMPRESSION: Slightly small kidneys. No hydronephrosis or mass seen associated with either kidney. DUGLAS HAN MD July 28, 2016 17:02
[2016-07-28 19:50] VITALS: BP 129/58
[2016-07-28] MEDS ORDERED: INSULIN DETEMIR 300 UNITS/3 ML INSULN.PEN. SQ SCH (21:00)
[2016-07-28] MEDS ORDERED: DARBEPOETIN ALFA 60 MCG/0.3 ML DISP.SYRIN. SQ SCH (21:00)
[2016-07-28] MEDS: MONTELUKAST SODIUM 10 MG TABLET. PO SCH (21:13)
[2016-07-28] MEDS: MIRTAZAPINE 15 MG TABLET PO SCH (21:13)
[2016-07-28] MEDS: DIVALPROEX SPRINKLES 125 MG CAPSULE. PO SCH (21:13)
[2016-07-28 23:22] VITALS: BP 132/61
[2016-07-29] MEDS: HYDROcodone/APAP 7.5/325MG 1 TAB TABLET PO PRN (00:22)
[2016-07-29 04:29] LABS: BASO # 0.1 x10^3/uL (0.0-0.2); BASO % 1 % (0-3); EOS % 2 % (0-3); HEMATOCRIT 29.9 % (36.0-47.0); HEMOGLOBIN 9.7 g/dL (12.0-15.5); LYMPH # 2.2 x10^3/uL (1.0-4.8); LYMPH % 37 % (24-48); MEAN CORPUSCULAR HEMOGLOBIN 28 pg (25-35); MEAN CORPUSCULAR HGB CONC 32 g/dL (31-37); MEAN CORPUSCULAR VOLUME 88 fL (79-100); MONO % 16 % (0-9); NEUT % 44 % (31-73); PLATELET COUNT 208 x10^3/uL (140-400); RED BLOOD COUNT 3.41 x10^6/uL (3.50-5.40); RED CELL DISTRIBUTION WIDTH 14.3 % (11.5-14.5)
[2016-07-29 04:34] LABS: ALBUMIN 2.8 g/dL (3.4-5.0); CALCIUM 8.7 mg/dL (8.5-10.1); CREATININE 2.4 mg/dL (0.6-1.0); GFR 23.6; PHOSPHORUS 3.7 mg/dL (2.6-4.7); POTASSIUM 4.1 mmol/L (3.5-5.1)
[2016-07-29] MEDS: INSULIN ASPART 300 UNITS/3 ML INSULN.PEN SQ SCH ×2 (07:30→16:30)
[2016-07-29] MEDS: FERROUS SULFATE 325 MG TABLET. PO SCH (08:33)
[2016-07-29] MEDS: METOCLOPRAMIDE HCL 10 MG/10 ML SOLUTION. PO SCH ×4 (08:33→21:13)
[2016-07-29] MEDS: METOPROLOL TART IMMED RELEASE 50 MG TABLET. PO SCH ×2 (08:35→21:12)
[2016-07-29] MEDS: ISOSORBIDE MONONITRATE ER 30 MG TAB.ER.24H PO SCH (08:35)
[2016-07-29] MEDS: CETIRIZINE HCL 10 MG TABLET. PO SCH (08:36)
[2016-07-29] MEDS: MUPIROCIN 2 % NASAL OINTMENT 22GM TUBE. NS SCH ×2 (08:36→21:21)
[2016-07-29] MEDS: amLODIPine BESYLATE 5 MG TABLET PO SCH (08:36)
[2016-07-29] MEDS: MICONAZOLE NITRATE 2% TOPICAL CREAM 28GM TUBE. TP SCH (08:58)
[2016-07-29] MEDS ORDERED: cloNIDine TTS-2 1 PATCH PATCH TD SCH (09:00)
--- NOTE | 2016-07-29 09:06 | PDOC ---
MARINEMARCUS EXHIBITS COORDINATOR 07/29/16 0905: IM PROGRESS NOTES- Subjective Subjective awake, weak Objective Objective no distress, remains lethargic Vitals Vital Signs Date Time Temp Pulse Resp B/P Pulse Ox O2 Delivery O2 Flow Rate FiO2 07/29/16 08:36 63 153/61 07/29/16 02:05 20 92 Room Air 07/28/16 23:22 98.0 98.0 Input & Output Intake and Output 07/29/16 06:59 Intake Total 530 ml Output Total 475 ml Balance 55 ml Intake Oral 480 ml IV Total 50 ml Output Urine Total 475 ml # Voids 3 Physical Exam Physical Exam General appearance - alert,well appearing, and in no distress and oriented to person, place, and time Mental Status - alert, oriented to person, place, and time, affect appropriate to mood Head - normal Chest - clear to auscultation, no wheezes, rales or rhonchi, symmetric air entry Heart - S1 and S2 normal Abdomen - soft, nontender, nondistended, no masses or organomegaly Neurological - alert and oriented Musculoskeletal - no muscular tenderness noted Extremities - no pedal edema Skin - warm and dry Labs Laboratory Tests Test 07/27/16 12:30 07/27/16 13:04 07/27/16 13:20 07/27/16 14:15 Reticulocyte Count (auto) 0.9% (0.5-2.5) Lactic Acid Level 1.1mmol/L (0.4-2.0) Uric Acid 13.8mg/dL (2.6-6.0) Iron Level 82ug/dL (50-170) Total Iron Binding Capacity 239ug/dL (250-450) Iron Saturation 34% (15-34) Ferritin 155ng/mL (8-252) Creatine Kinase 88U/L (26-192) Urine Collection Type U cath Urine Color Yellow Urine Clarity Cloudy Urine pH 5.5 Urine Specific [place] 1.015 Urine Protein 13.2mg/dL (Not Estab.) Urine Glucose (UA) Negativemg/dL (NEG) Urine Ketones (Stick) Negativemg/dL (NEG) Urine Blood Negative (NEG) Urine Nitrite Positive (NEG) Urine Bilirubin Negative (NEG) Urine Urobilinogen Dipstick 0.2mg/dL (0.2 mg/dL) Urine Leukocyte Esterase Large (NEG) Urine RBC 0/HPF (0-2) Urine WBC 5-10/HPF (0-4) Urine Squamous Epithelial Cells Occ/LPF Urine Bacteria Many/HPF (0-FEW) Urine Hyaline Casts Few/HPF Urine Random Creatinine 208.0mg/dL (Not Estab.) Urine Random Sodium 22mmol/L (Not Estab.) Urine Creatinine 202.3mg/dL (Not Estab.) Urine Protein/Creatinine Ratio 65mg/g creat (0-200) White Blood Count 7.5x10^3/uL (4.0-11.0) Red Blood Count 3.65x10^6/uL (3.50-5.40) Hemoglobin 10.3g/dL (12.0-15.5) Hematocrit 32.0% (36.0-47.0) Mean Corpuscular Volume 88fL (79-100) Mean Corpuscular Hemoglobin 28pg (25-35) Mean Corpuscular Hemoglobin Concent 32g/dL (31-37) Red Cell Distribution Width 14.7% (11.5-14.5) Platelet Count 237x10^3/uL (140-400) Neutrophils (%) (Auto) 49% (31-73) Lymphocytes (%) (Auto) 35% (24-48) Monocytes (%) (Auto) 14% (0-9) Eosinophils (%) (Auto) 1% (0-3) Basophils (%) (Auto) 1% (0-3) Neutrophils # (Auto) 3.6x10^3uL (1.8-7.7) Lymphocytes # (Auto) 2.6x10^3/uL (1.0-4.8) Monocytes # (Auto) 1.0x10^3/uL (0.0-1.1) Eosinophils # (Auto) 0.1x10^3/uL (0.0-0.7) Basophils # (Auto) 0.1x10^3/uL (0.0-0.2) Sodium Level 139mmol/L (136-145) Potassium Level 4.9mmol/L (3.5-5.1) Chloride Level 104mmol/L (98-107) Carbon Dioxide Level 29mmol/L (21-32) Anion Gap 6 (6-14) Blood Urea Nitrogen 74mg/dL (7-20) Creatinine 3.7mg/dL (0.6-1.0) Estimated GFR (Cockcroft-Gault) 14.3 Glucose Level 127mg/dL (70-99) Calcium Level 9.5mg/dL (8.5-10.1) Nasal Screen MRSA (PCR) Positive (Negative) Test 07/27/16 14:33 07/27/16 20:59 07/28/16 04:25 07/28/16 07:12 Glucose (Fingerstick) 130mg/dL (70-99) 162mg/dL (70-99) 94mg/dL (70-99) White Blood Count 8.7x10^3/uL (4.0-11.0) Red Blood Count 3.40x10^6/uL (3.50-5.40) Hemoglobin 9.5g/dL (12.0-15.5) Hematocrit 29.7% (36.0-47.0) Mean Corpuscular Volume 87fL (79-100) Mean Corpuscular Hemoglobin 28pg (25-35) Mean Corpuscular Hemoglobin Concent 32g/dL (31-37) Red Cell Distribution Width 14.4% (11.5-14.5) Platelet Count 233x10^3/uL (140-400) Neutrophils (%) (Auto) 39% (31-73) Lymphocytes (%) (Auto) 45% (24-48) Monocytes (%) (Auto) 14% (0-9) Eosinophils (%) (Auto) 2% (0-3) Basophils (%) (Auto) 1% (0-3) Neutrophils # (Auto) 3.4x10^3uL (1.8-7.7) Lymphocytes # (Auto) 3.9x10^3/uL (1.0-4.8) Monocytes # (Auto) 1.2x10^3/uL (0.0-1.1) Eosinophils # (Auto) 0.1x10^3/uL (0.0-0.7) Basophils # (Auto) 0.1x10^3/uL (0.0-0.2) Sodium Level 140mmol/L (136-145) Potassium Level 4.2mmol/L (3.5-5.1) Chloride Level 107mmol/L (98-107) Carbon Dioxide Level 26mmol/L (21-32) Anion Gap 7 (6-14) Blood Urea Nitrogen 66mg/dL (7-20) Creatinine 3.1mg/dL (0.6-1.0) Estimated GFR (Cockcroft-Gault) 17.5 BUN/Creatinine Ratio 21 (6-20) Glucose Level 43mg/dL (70-99) Calcium Level 8.9mg/dL (8.5-10.1) Phosphorus Level 4.4mg/dL (2.6-4.7) Magnesium Level 2.7mg/dL (1.8-2.4) Total Bilirubin 0.3mg/dL (0.2-1.0) Aspartate Amino Transf (AST/SGOT) 14U/L (15-37) Alanine Aminotransferase (ALT/SGPT) 15U/L (14-59) Alkaline Phosphatase 66U/L (46-116) Total Protein 6.9g/dL (6.4-8.2) Albumin 3.0g/dL (3.4-5.0) Albumin/Globulin Ratio 0.8 (1.0-1.7) Test 07/28/16 10:40 07/28/16 16:39 07/28/16 21:12 07/29/16 03:50 Glucose (Fingerstick) 141mg/dL (70-99) 141mg/dL (70-99) 178mg/dL (70-99) White Blood Count 6.0x10^3/uL (4.0-11.0) Red Blood Count 3.41x10^6/uL (3.50-5.40) Hemoglobin 9.7g/dL (12.0-15.5) Hematocrit 29.9% (36.0-47.0) Mean Corpuscular Volume 88fL (79-100) Mean Corpuscular Hemoglobin 28pg (25-35) Mean Corpuscular Hemoglobin Concent 32g/dL (31-37) Red Cell Distribution Width 14.3% (11.5-14.5) Platelet Count 208x10^3/uL (140-400) Neutrophils (%) (Auto) 44% (31-73) Lymphocytes (%) (Auto) 37% (24-48) Monocytes (%) (Auto) 16% (0-9) Eosinophils (%) (Auto) 2% (0-3) Basophils (%) (Auto) 1% (0-3) Neutrophils # (Auto) 2.6x10^3uL (1.8-7.7) Lymphocytes # (Auto) 2.2x10^3/uL (1.0-4.8) Monocytes # (Auto) 1.0x10^3/uL (0.0-1.1) Eosinophils # (Auto) 0.1x10^3/uL (0.0-0.7) Basophils # (Auto) 0.1x10^3/uL (0.0-0.2) Sodium Level 141mmol/L (136-145) Potassium Level 4.1mmol/L (3.5-5.1) Chloride Level 109mmol/L (98-107) Carbon Dioxide Level 25mmol/L (21-32) Anion Gap 7 (6-14) Blood Urea Nitrogen 50mg/dL (7-20) Creatinine 2.4mg/dL (0.6-1.0) Estimated GFR (Cockcroft-Gault) 23.6 Glucose Level 73mg/dL (70-99) Calcium Level 8.7mg/dL (8.5-10.1) Phosphorus Level 3.7mg/dL (2.6-4.7) Magnesium Level 2.6mg/dL (1.8-2.4) Albumin 2.8g/dL (3.4-5.0) Test 07/29/16 08:15 Glucose (Fingerstick) 61mg/dL (70-99) Laboratory Tests Test 07/28/16 10:40 07/28/16 16:39 07/28/16 21:12 07/29/16 03:50 Glucose (Fingerstick) 141mg/dL (70-99) 141mg/dL (70-99) 178mg/dL (70-99) White Blood Count 6.0x10^3/uL (4.0-11.0) Red Blood Count 3.41x10^6/uL (3.50-5.40) Hemoglobin 9.7g/dL (12.0-15.5) Hematocrit 29.9% (36.0-47.0) Mean Corpuscular Volume 88fL (79-100) Mean Corpuscular Hemoglobin 28pg (25-35) Mean Corpuscular Hemoglobin Concent 32g/dL (31-37) Red Cell Distribution Width 14.3% (11.5-14.5) Platelet Count 208x10^3/uL (140-400) Neutrophils (%) (Auto) 44% (31-73) Lymphocytes (%) (Auto) 37% (24-48) Monocytes (%) (Auto) 16% (0-9) Eosinophils (%) (Auto) 2% (0-3) Basophils (%) (Auto) 1% (0-3) Neutrophils # (Auto) 2.6x10^3uL (1.8-7.7) Lymphocytes # (Auto) 2.2x10^3/uL (1.0-4.8) Monocytes # (Auto) 1.0x10^3/uL (0.0-1.1) Eosinophils # (Auto) 0.1x10^3/uL (0.0-0.7) Basophils # (Auto) 0.1x10^3/uL (0.0-0.2) Sodium Level 141mmol/L (136-145) Potassium Level 4.1mmol/L (3.5-5.1) Chloride Level 109mmol/L (98-107) Carbon Dioxide Level 25mmol/L (21-32) Anion Gap 7 (6-14) Blood Urea Nitrogen 50mg/dL (7-20) Creatinine 2.4mg/dL (0.6-1.0) Estimated GFR (Cockcroft-Gault) 23.6 Glucose Level 73mg/dL (70-99) Calcium Level 8.7mg/dL (8.5-10.1) Phosphorus Level 3.7mg/dL (2.6-4.7) Magnesium Level 2.6mg/dL (1.8-2.4) Albumin 2.8g/dL (3.4-5.0) Test 07/29/16 08:15 Glucose (Fingerstick) 61mg/dL (70-99) Meds Current Medications Ceftriaxone Sodium/Sodium Chloride (Rocephin/Iv Sodium Chloride 0.9% 50ml) 50 ml @ 100 mls/hr Q24H IV Last administered on 07/28/16t 09:50; Start 07/28/16 at 10:00 Clonidine HCl (Catapres Tts-2) 1 patch We TD Last administered on 07/29/16 08: 58; Start 07/29/16 at 09:00 Darbepoetin Deep (Aranesp) 60 mcg [id number] SQ Last administered on 07/28/16 21: 13; Start 07/28/16 at 21:00 Hydralazine HCl (Apresoline) 100 mg [id number] PO Last administered on 07/29/16 08:34; Start 07/28/16 at 19:00 Insulin Detemir 40 units 40 units QHS SQ Last administered on 07/28/16 21:23; Start 07/28/16 at 21:00; Stop 07/29/16 at 08:59; Status DC Mupirocin 1 hu 1 hu BID NS Last administered on 07/29/16 08:36; Start at 10:00 Sodium Chloride (Iv Sodium Chloride 0.9% 1000ml Bag) 1,000 ml @ 75 mls/hr [id number] IV Last administered on 07/28/16 22:50; Start 07/28/16 at 09:30 Assessment Assessment Plan 1. acute renal failure KULWINDER, VMN with underlying CKD III 2. acute metabolic encephalopathy 3. UTI 4. anemia chronic disease renal/fe 5. elevated uric acid 6. DM II with nephropathy 7. CKD III hypertension/diabetes 8. hypertension 9. diarrhea 10. HTN 11. hyperlipidemia 12. GERD 13. chronic LBP 14. severe weakness and debility 15. severe PCL malnutrition -anorexia 16. OA generalized 17. thyroid nodule 1.6cm PLAN: ARF nephrology consult Admit BUN 74 05/ 50 Cr 3.7 2.4 Na 139 141 K 4.9 4.1 IVF in ED otherwise no IVF ?gout-start colcrys? Begin IVF NS 50cc/hr Admit uric acid 13.8 admit Wt 204 07/29 218# acute metabolic encephalopathy monitor minimal improvement 07/29 DM II with hypoglycemia appetite decreased BS 0400 43 Decrease Levemir to 40units daily continue SSI low intensity BS 127-162 prior to 0400, this AM 94 Diet changed to cardiac: not on ADA diet at SD. BS 45-162-[id number] levemir to 10units 07/29 UTI no sepsis UA + nitrite, neg blood, + leukoesterase Begin Rocephin 1gm IV until urine CS results available h/o cefepime w/o reaction lactic acid 1.1 prelim culture +Gm negative rods menjivar placed for accurate IO anemia h/o fe deficiency, on ferrous sulfate Fe 82, TIBC 239, Fe sat 34, Ferritin 155 Admit 10.3 07/29 9.7 aranesp started 07/28 severe weakness and debility PT OT severe PCL malnutrition monitor oral intake thyroid nodule check TSH T4 DVT/GI prophylaxis SCD/BHAVANI PPI For more details regarding further plans, please refer to the orders. Plan Plan For more details regarding further plans, please refer to the orders. YURY TANG MD 07/29/16 1021: IM PROGRESS NOTES- Assessment Assessment She is sleeping a lot. D/c Zyrtec. The patient was seen and examined by me. Chart reviewed and plan of care formulated. Discussed with, reviewed and agree with MANAGER RECOVERY's notes, plan of care and orders with modifications as necessary. For more details regarding further plans, please refer to the orders. MARCUS HAWTHORNE APRN July 29, 2016 09:05 YURY TANG MD July 29, 2016 10:21
[2016-07-29 11:00] VITALS: BP 136/48
--- NOTE | 2016-07-29 12:21 | PDOC ---
SUBJECTIVE ROS KULWINDER/ CKD III Doing better today CVS: no Orthopnea, no CP RESP: no SOB, no MOSQUERA GI: no Nausea, no Vomiting : no Dysuria, no Urgency OBJECTIVE Vital Signs Vital Signs Date Time Temp Pulse Resp B/P Pulse Ox O2 Delivery O2 Flow Rate FiO2 07/29/16 08:36 63 153/61 07/29/16 02:05 20 92 Room Air 07/28/16 23:22 98.0 98.0 I & 0 Intake and Output 07/29/16 07:00 Intake Total 530 ml Output Total 475 ml Balance 55 ml Intake Oral 480 ml IV Total 50 ml Output Urine Total 475 ml # Voids 3 PHYSICAL EXAM Physical Exam GEN: Asleep, Oriented x 0, In no distress EYES: Vision Unchanged, Conjunctiva Normal EN: No EN Drainage, Mucous Membranes moist, drooling NECK: no JVD, no JVP, Supple, no Thyromegaly CVS: S1S2, ? Murmur, No Gallop, No Rub,no Edema RESP: no Rales, no Rhonchi,no Acc. Muscle Use GI: BS + ve, NO Bruit, Non Tender, Non Distended - obese : no CVA tenderness, no Suprapubic Tenderness DIAGNOSIS/ASSESSMENT Assessment & Plan KULWINDER: ? due to Ch Diarrhea VMN, UO is still marginal despite menjivar placed last pm. Creat is responding to IVF. progression of CKD due to DM/ HTnisve / NS cannot be ruled out. Current FLuid and E-lyte status does not necessitate emergent need for Dialysis. Will re-evaluate for Dialysis in am - Anorexia - ? Uremic prodrome - may need 24-hr Urine to assess renal function CKD III in 2013 with GFR 44 calc. presumed due to DM/ HTnisve /NS Anemia: Good on Iron; hence start Epogen ; Transfuse as needed. HTN: Current BP meds reviewed. See orders for changes. ? Vol depeltion - watch UO on IVF with menjivar placement COMMENT/RELEVANT DATA Meds Current Medications Medications (Trade) Dose Ordered Sig/Mateo Start Time Stop Time Status Last Admin Dose Admin Acetaminophen (Tylenol) 650 mg PRN Q6HRS PRN 07/27/16 18:15 Acetaminophen 650 mg 650 mg PRN Q4HRS PRN 07/27/16 12:45 07/28/16 12:44 DC Acetaminophen/ Hydrocodone Bitart (Lortab 7.5/325) 1 tab PRN Q6HRS PRN 07/27/16 18:00 07/29/16 00:22 1 TAB Amlodipine Besylate (Norvasc) 5 mg DAILY 07/28/16 09:00 07/29/16 08:36 5 MG Calcium Carbonate/ Glycine (Oscal) 1,000 mg PRN Q4HRS PRN 07/27/16 18:15 Ceftriaxone Sodium/Sodium Chloride (Rocephin/Iv Sodium Chloride 0.9% 50ml) 50 ml @ 100 mls/hr Q24H 07/28/16 10:00 07/28/16 09:50 100 MLS/HR Cetirizine HCl (Zyrtec) 10 mg DAILY 07/28/16 09:00 07/29/16 10:20 DC 07/29/16 08:36 10 MG Clonidine HCl (Catapres Tts-2) 1 patch We 07/29/16 09:00 07/29/16 08:58 1 PATCH Darbepoetin Deep (Aranesp) 60 mcg WEEKLYHS 07/28/16 21:00 07/28/16 21:13 60 MCG Diphenhydramine HCl (Benadryl) 25 mg PRN Q6HRS PRN 07/28/16 09:00 Divalproex Sodium (Depakote Sprinkles) 125 mg HS 07/27/16 21:00 07/28/16 21:13 125 MG Ferrous Sulfate (Feosol) 325 mg DAILY 07/28/16 09:00 07/29/16 08:33 325 MG Hydralazine HCl (Apresoline) 100 mg [id number] 07/28/16 19:00 07/29/16 08:34 100 MG Insulin Aspart (Novolog) 0-8 [id number] 07/28/16 09:00 Insulin Detemir (Levemir) 10 units QHS 07/29/16 21:00 Insulin Detemir 40 units 40 units QHS 07/28/16 21:00 07/29/16 08:59 DC 07/28/16 21:23 40 UNITS Isosorbide Mononitrate (Imdur) 60 mg DAILY 07/28/16 09:00 07/29/16 08:35 60 MG Magnesium Sulfate/ Dextrose (Magnesium Sulfate PREMIX 2GM) 50 ml @ 25 mls/hr PRN DAILY PRN 07/27/16 15:00 Metoclopramide HCl (Reglan) 5 mg QIDACHS 07/27/16 21:00 07/29/16 08:33 5 MG Metoprolol Tartrate (Lopressor) 100 mg BID 07/27/16 21:00 07/29/16 08:35 100 MG Miconazole Nitrate (Monistat-Derm) 1 hu DAILY 07/28/16 09:00 07/29/16 08:58 1 HU Mirtazapine (Remeron) 15 mg QHS 07/27/16 21:00 07/28/16 21:13 15 MG Montelukast Sodium (Singulair) 10 mg HS 07/27/16 21:00 07/28/16 21:13 10 MG Mupirocin 1 hu 1 hu BID 07/28/16 10:00 07/29/16 08:36 1 HU Non-Formulary Medication 1 mg PRN 07/27/16 18:15 UNV Ondansetron HCl (Zofran) 4 mg PRN Q8HRS PRN 07/27/16 12:45 07/28/16 12:44 DC Senna/Docusate Sodium (Senna Plus) 1 tab PRN DAILY PRN 07/27/16 18:15 Sennosides (Senna) 8.6 mg PRN DAILY PRN 07/27/16 18:15 07/28/16 09:01 DC Sodium Chloride (Iv Sodium Chloride 0.9% 500ml Bag) 500 ml @ 500 mls/hr 1X ONCE 07/27/16 12:30 07/27/16 13:29 DC 07/27/16 12:30 500 MLS/HR Sodium Chloride (Iv Sodium Chloride 0.9% 1000ml Bag) 1,000 ml @ 75 mls/hr [id number] 07/28/16 09:30 07/28/16 22:50 75 MLS/HR Lab Laboratory Tests Test 07/28/16 16:39 07/28/16 21:12 07/29/16 03:50 07/29/16 08:15 Glucose (Fingerstick) 141mg/dL (70-99) 178mg/dL (70-99) 61mg/dL (70-99) White Blood Count 6.0x10^3/uL (4.0-11.0) Red Blood Count 3.41x10^6/uL (3.50-5.40) Hemoglobin 9.7g/dL (12.0-15.5) Hematocrit 29.9% (36.0-47.0) Mean Corpuscular Volume 88fL (79-100) Mean Corpuscular Hemoglobin 28pg (25-35) Mean Corpuscular Hemoglobin Concent 32g/dL (31-37) Red Cell Distribution Width 14.3% (11.5-14.5) Platelet Count 208x10^3/uL (140-400) Neutrophils (%) (Auto) 44% (31-73) Lymphocytes (%) (Auto) 37% (24-48) Monocytes (%) (Auto) 16% (0-9) Eosinophils (%) (Auto) 2% (0-3) Basophils (%) (Auto) 1% (0-3) Neutrophils # (Auto) 2.6x10^3uL (1.8-7.7) Lymphocytes # (Auto) 2.2x10^3/uL (1.0-4.8) Monocytes # (Auto) 1.0x10^3/uL (0.0-1.1) Eosinophils # (Auto) 0.1x10^3/uL (0.0-0.7) Basophils # (Auto) 0.1x10^3/uL (0.0-0.2) Sodium Level 141mmol/L (136-145) Potassium Level 4.1mmol/L (3.5-5.1) Chloride Level 109mmol/L (98-107) Carbon Dioxide Level 25mmol/L (21-32) Anion Gap 7 (6-14) Blood Urea Nitrogen 50mg/dL (7-20) Creatinine 2.4mg/dL (0.6-1.0) Estimated GFR (Cockcroft-Gault) 23.6 Glucose Level 73mg/dL (70-99) Calcium Level 8.7mg/dL (8.5-10.1) Phosphorus Level 3.7mg/dL (2.6-4.7) Magnesium Level 2.6mg/dL (1.8-2.4) Albumin 2.8g/dL (3.4-5.0) Test 07/29/16 11:32 Glucose (Fingerstick) 150mg/dL (70-99) DUGLAS HAN MD July 29, 2016 12:21
[2016-07-29] MEDS: IV NORMAL SALINE 1000ML BAG 1,000 ML IV SCH ×2 (12:49→21:11)
[2016-07-29 15:00] VITALS: BP 117/42
[2016-07-29 19:03] VITALS: BP 126/55
[2016-07-29] MEDS: DIVALPROEX SPRINKLES 125 MG CAPSULE. PO SCH (21:13)
[2016-07-29] MEDS: MIRTAZAPINE 15 MG TABLET PO SCH (21:13)
[2016-07-29] MEDS: MONTELUKAST SODIUM 10 MG TABLET. PO SCH (21:13)
[2016-07-29] MEDS: INSULIN DETEMIR 300 UNITS/3 ML INSULN.PEN. SQ SCH (21:20)
[2016-07-29 23:55] VITALS: BP 154/58
[2016-07-30 03:29] VITALS: BP 143/52
[2016-07-30 07:00] VITALS: BP 199/72
[2016-07-30] MEDS: INSULIN ASPART 300 UNITS/3 ML INSULN.PEN SQ SCH ×2 (07:30→16:30)
[2016-07-30] MEDS: HYDROcodone/APAP 7.5/325MG 1 TAB TABLET PO PRN (07:44)
[2016-07-30] MEDS: FERROUS SULFATE 325 MG TABLET. PO SCH (07:44)
[2016-07-30] MEDS: ISOSORBIDE MONONITRATE ER 30 MG TAB.ER.24H PO SCH (07:44)
[2016-07-30] MEDS: amLODIPine BESYLATE 5 MG TABLET PO SCH (07:45)
[2016-07-30] MEDS: METOCLOPRAMIDE HCL 10 MG/10 ML SOLUTION. PO SCH ×4 (07:45→22:09)
[2016-07-30 07:52] LABS: BASO # 0.1 x10^3/uL (0.0-0.2); BASO % 1 % (0-3); EOS % 2 % (0-3); HEMATOCRIT 28.5 % (36.0-47.0); HEMOGLOBIN 9.2 g/dL (12.0-15.5); LYMPH # 1.8 x10^3/uL (1.0-4.8); LYMPH % 31 % (24-48); MEAN CORPUSCULAR HEMOGLOBIN 28 pg (25-35); MEAN CORPUSCULAR HGB CONC 32 g/dL (31-37); MEAN CORPUSCULAR VOLUME 88 fL (79-100); MONO % 15 % (0-9); NEUT % 51 % (31-73); PLATELET COUNT 188 x10^3/uL (140-400); RED BLOOD COUNT 3.23 x10^6/uL (3.50-5.40); RED CELL DISTRIBUTION WIDTH 14.6 % (11.5-14.5)
[2016-07-30 08:02] LABS: ALBUMIN 2.6 g/dL (3.4-5.0); CALCIUM 8.8 mg/dL (8.5-10.1); CREATININE 1.8 mg/dL (0.6-1.0); GFR 32.8; PHOSPHORUS 3.3 mg/dL (2.6-4.7); POTASSIUM 4.4 mmol/L (3.5-5.1)
--- NOTE | 2016-07-30 08:39 | PDOC ---
MARINEMARCUS HAND II THERMAL CUTTER 07/30/16 0839: IM PROGRESS NOTES- Subjective Subjective awake, c/o low back pain from kidneys Objective Objective no distress, remains alert Vitals Vital Signs Date Time Temp Pulse Resp B/P (MAP) Pulse Ox O2 Delivery O2 Flow Rate FiO2 07/30/16 07:45 88 199/88 07/30/16 07:44 Room Air 07/30/16 03:29 97.8 18 100 97.8 Input & Output Intake and Output 07/30/16 06:59 Intake Total 2602 ml Output Total 650 ml Balance 1952 ml Intake Oral 175 ml IV Total 2427 ml Output Urine Total 650 ml Physical Exam Physical Exam Physical Exam General appearance - alert, still weak, ill appearing, and in no distress Mental Status - alert, oriented to person, place, and time, Head - normal Chest - clear to auscultation, no wheezes, rales or rhonchi, symmetric air entry Heart - S1 and S2 normal Abdomen - soft, nontender, nondistended, BS+, obese Gu: menjivar davon urine Neurological - alert, otherwise negative assessment Musculoskeletal - no muscular tenderness noted Extremities - no pedal edema Skin - warm and dry Labs Laboratory Tests Test 07/28/16 10:40 07/28/16 16:39 07/28/16 21:12 07/29/16 03:50 Glucose (Fingerstick) 141 mg/dL (70-99) 141 mg/dL (70-99) 178 mg/dL (70-99) White Blood Count 6.0 x10^3/uL (4.0-11.0) Red Blood Count 3.41 x10^6/uL (3.50-5.40) Hemoglobin 9.7 g/dL (12.0-15.5) Hematocrit 29.9 % (36.0-47.0) Mean Corpuscular Volume 88 fL (79-100) Mean Corpuscular Hemoglobin 28 pg (25-35) Mean Corpuscular Hemoglobin Concent 32 g/dL (31-37) Red Cell Distribution Width 14.3 % (11.5-14.5) Platelet Count 208 x10^3/uL (140-400) Neutrophils (%) (Auto) 44 % (31-73) Lymphocytes (%) (Auto) 37 % (24-48) Monocytes (%) (Auto) 16 % (0-9) Eosinophils (%) (Auto) 2 % (0-3) Basophils (%) (Auto) 1 % (0-3) Neutrophils # (Auto) 2.6 x10^3uL (1.8-7.7) Lymphocytes # (Auto) 2.2 x10^3/uL (1.0-4.8) Monocytes # (Auto) 1.0 x10^3/uL (0.0-1.1) Eosinophils # (Auto) 0.1 x10^3/uL (0.0-0.7) Basophils # (Auto) 0.1 x10^3/uL (0.0-0.2) Sodium Level 141 mmol/L (136-145) Potassium Level 4.1 mmol/L (3.5-5.1) Chloride Level 109 mmol/L (98-107) Carbon Dioxide Level 25 mmol/L (21-32) Anion Gap 7 (6-14) Blood Urea Nitrogen 50 mg/dL (7-20) Creatinine 2.4 mg/dL (0.6-1.0) Estimated GFR (Cockcroft-Gault) 23.6 Glucose Level 73 mg/dL (70-99) Calcium Level 8.7 mg/dL (8.5-10.1) Phosphorus Level 3.7 mg/dL (2.6-4.7) Magnesium Level 2.6 mg/dL (1.8-2.4) Albumin 2.8 g/dL (3.4-5.0) Test 07/29/16 08:15 07/29/16 11:32 07/29/16 16:00 07/29/16 17:18 Glucose (Fingerstick) 61 mg/dL (70-99) 150 mg/dL (70-99) 102 mg/dL (70-99) 104 mg/dL (70-99) Test 07/29/16 21:13 07/30/16 05:20 Glucose (Fingerstick) 112 mg/dL (70-99) White Blood Count 6.0 x10^3/uL (4.0-11.0) Red Blood Count 3.23 x10^6/uL (3.50-5.40) Hemoglobin 9.2 g/dL (12.0-15.5) Hematocrit 28.5 % (36.0-47.0) Mean Corpuscular Volume 88 fL (79-100) Mean Corpuscular Hemoglobin 28 pg (25-35) Mean Corpuscular Hemoglobin Concent 32 g/dL (31-37) Red Cell Distribution Width 14.6 % (11.5-14.5) Platelet Count 188 x10^3/uL (140-400) Neutrophils (%) (Auto) 51 % (31-73) Lymphocytes (%) (Auto) 31 % (24-48) Monocytes (%) (Auto) 15 % (0-9) Eosinophils (%) (Auto) 2 % (0-3) Basophils (%) (Auto) 1 % (0-3) Neutrophils # (Auto) 3.1 x10^3uL (1.8-7.7) Lymphocytes # (Auto) 1.8 x10^3/uL (1.0-4.8) Monocytes # (Auto) 0.9 x10^3/uL (0.0-1.1) Eosinophils # (Auto) 0.1 x10^3/uL (0.0-0.7) Basophils # (Auto) 0.1 x10^3/uL (0.0-0.2) Sodium Level 142 mmol/L (136-145) Potassium Level 4.4 mmol/L (3.5-5.1) Chloride Level 111 mmol/L (98-107) Carbon Dioxide Level 22 mmol/L (21-32) Anion Gap 9 (6-14) Blood Urea Nitrogen 30 mg/dL (7-20) Creatinine 1.8 mg/dL (0.6-1.0) Estimated GFR (Cockcroft-Gault) 32.8 Glucose Level 126 mg/dL (70-99) Calcium Level 8.8 mg/dL (8.5-10.1) Phosphorus Level 3.3 mg/dL (2.6-4.7) Magnesium Level 2.3 mg/dL (1.8-2.4) Albumin 2.6 g/dL (3.4-5.0) Laboratory Tests Test 07/29/16 11:32 07/29/16 16:00 07/29/16 17:18 07/29/16 21:13 Glucose (Fingerstick) 150 mg/dL (70-99) 102 mg/dL (70-99) 104 mg/dL (70-99) 112 mg/dL (70-99) Test 07/30/16 05:20 White Blood Count 6.0 x10^3/uL (4.0-11.0) Red Blood Count 3.23 x10^6/uL (3.50-5.40) Hemoglobin 9.2 g/dL (12.0-15.5) Hematocrit 28.5 % (36.0-47.0) Mean Corpuscular Volume 88 fL (79-100) Mean Corpuscular Hemoglobin 28 pg (25-35) Mean Corpuscular Hemoglobin Concent 32 g/dL (31-37) Red Cell Distribution Width 14.6 % (11.5-14.5) Platelet Count 188 x10^3/uL (140-400) Neutrophils (%) (Auto) 51 % (31-73) Lymphocytes (%) (Auto) 31 % (24-48) Monocytes (%) (Auto) 15 % (0-9) Eosinophils (%) (Auto) 2 % (0-3) Basophils (%) (Auto) 1 % (0-3) Neutrophils # (Auto) 3.1 x10^3uL (1.8-7.7) Lymphocytes # (Auto) 1.8 x10^3/uL (1.0-4.8) Monocytes # (Auto) 0.9 x10^3/uL (0.0-1.1) Eosinophils # (Auto) 0.1 x10^3/uL (0.0-0.7) Basophils # (Auto) 0.1 x10^3/uL (0.0-0.2) Sodium Level 142 mmol/L (136-145) Potassium Level 4.4 mmol/L (3.5-5.1) Chloride Level 111 mmol/L (98-107) Carbon Dioxide Level 22 mmol/L (21-32) Anion Gap 9 (6-14) Blood Urea Nitrogen 30 mg/dL (7-20) Creatinine 1.8 mg/dL (0.6-1.0) Estimated GFR (Cockcroft-Gault) 32.8 Glucose Level 126 mg/dL (70-99) Calcium Level 8.8 mg/dL (8.5-10.1) Phosphorus Level 3.3 mg/dL (2.6-4.7) Magnesium Level 2.3 mg/dL (1.8-2.4) Albumin 2.6 g/dL (3.4-5.0) Meds Current Medications Clonidine HCl (Catapres Tts-2) 1 patch We TD Last administered on 07/29/16 08: 58; Start 07/29/16 at 09:00 Insulin Detemir (Levemir) 10 units QHS SQ Last administered on 07/29/16 21:20; Start 07/29/16 at 21:00 Assessment Assessment IMPRESSION: 1. acute renal failure KULWINDER, VMN with underlying CKD III 2. acute metabolic encephalopathy 3. UTI no sepsis 4. anemia chronic disease renal/fe 5. elevated uric acid 6. DM II with nephropathy 7. CKD III hypertension/diabetes 8. hypertension 9. diarrhea 10. HTN 11. hyperlipidemia 12. GERD 13. chronic LBP 14. severe weakness and debility 15. severe PCL malnutrition -anorexia 16. OA generalized 17. thyroid nodule 1.6cm PLAN: [facility] nephrology consult Admit BUN 74 07/30 30 Cr 3.7 1.8 Na 139 142 K 4.9 4.4 uric acid 13.8 IVF in ED otherwise no IVF ?gout-start colcrys? Begin IVF NS 50cc/hr-increased to 125cc/hr 05 acute metabolic encephalopathy monitor improved DM II with hypoglycemia appetite decreased BS 0400 43 Decrease Levemir to 40units daily continue SSI low intensity BS 127-162 prior to 0400, this AM 94 Diet changed to cardiac: not on ADA diet at PR. BS 102-126 UTI no sepsis + nitrite, neg blood, + leukoesterase Begin Rocephin 1gm IV until urine CS results available h/o cefepime w/o reaction lactic acid 1.1 Ecoli sensitive to Rocephin anemia h/o fe deficiency, on ferrous sulfate Fe 82, TIBC 239, Fe sat 34, Ferritin 155 Admit 10.3 0504 9.2 severe weakness and debility PT OT severe PCL malnutrition monitor oral intake thyroid nodule check TSH T4 DVT/GI prophylaxis SCD/BHAVANI PPI For more details regarding further plans, please refer to the orders. She is sleeping a lot. D/c Zyrtec. The patient was seen and examined by me. Chart reviewed and plan of care formulated. Discussed with, reviewed and agree with MEDICAL RESEARCH ASSOCIATE's notes, plan of care and orders with modifications as necessary. For more details regarding further plans, please refer to the orders. Plan Plan For more details regarding further plans, please refer to the orders. YURY TANG MD 07/30/16 0955: PROGRESS NOTES- Assessment Assessment Malignant hypertension- consult cardiology. still very sleepy.can not decrease catapres at this time. IV Rocephin. ? Underling depression.Prognosis is poor. see orders. The patient was seen and examined by me. Chart reviewed and plan of care formulated. Discussed with, reviewed and agree with MEDICAL RESEARCH ASSOCIATE's notes, plan of care and orders with modifications as necessary. For more details regarding further plans, please refer to the orders. MARCUS HAWTHORNE APRN July 30, 2016 08:39 YURY TANG MD July 30, 2016 09:55
[2016-07-30] MEDS: METOPROLOL TART IMMED RELEASE 50 MG TABLET. PO SCH ×2 (08:46→22:12)
[2016-07-30] MEDS: MUPIROCIN 2 % NASAL OINTMENT 22GM TUBE. NS SCH ×2 (08:47→22:08)
[2016-07-30] MEDS: MICONAZOLE NITRATE 2% TOPICAL CREAM 28GM TUBE. TP SCH (09:00)
[2016-07-30 11:00] VITALS: BP 158/63
--- NOTE | 2016-07-30 11:57 | PDOC ---
SUBJECTIVE ROS KULWINDER/ CKD III doing well OBJECTIVE Vital Signs Vital Signs Date Time Temp Pulse Resp B/P (MAP) Pulse Ox O2 Delivery O2 Flow Rate FiO2 07/30/16 11:00 97.9 79 16 158/63 (94) 93 Room Air 97.9 I & 0 Intake and Output 07/30/16 07:00 Intake Total 3430 ml Output Total 1200 ml Balance 2230 ml Intake Oral 375 ml IV Total 2427 ml Other 628 ml Output Urine Total 1200 ml PHYSICAL EXAM Physical Exam GEN: Asleep, Oriented x 0, In no distress; flat affect EYES: Vision Unchanged, Conjunctiva Normal EN: No EN Drainage, Mucous Membranes moist, NECK: no JVD, no JVP, Supple, no Thyromegaly CVS: S1S2, ? Murmur, No Gallop, No Rub,no Edema RESP: no Rales, no Rhonchi,no Acc. Muscle Use GI: BS + ve, NO Bruit, Non Tender, Non Distended - obese : no CVA tenderness, no Suprapubic Tenderness DIAGNOSIS/ASSESSMENT Assessment & Plan KULWINDER: much improved. UO is much better. creat is responding to IVF watch off of same.. Current FLuid and E-lyte status does not necessitate emergent need for Dialysis. Will re-evaluate for Dialysis in am Anorexia - improving now - may have contributed to vol depletion in setting of ongoing ch Diarrhea CKD III in 2013 with GFR 44 calc. presumed due to DM/ HTnisve /NS Anemia: Good on Iron; hence start Epogen ; Transfuse as needed. HTN: Current BP meds reviewed. See orders for changes. ? Vol depeltion - watch UO off IVF ; ? D/c lasix and aldactone. OK to D/c back to NH from renal standpoint. COMMENT/RELEVANT DATA Meds Current Medications Medications (Trade) Dose Ordered Sig/Mateo Start Time Stop Time Status Last Admin Dose Admin Acetaminophen (Tylenol) 650 mg PRN Q6HRS PRN 07/27/16 18:15 Acetaminophen/ Hydrocodone Bitart (Lortab 7.5/325) 1 tab PRN Q6HRS PRN 07/27/16 18:00 07/30/16 07:44 1 TAB Amlodipine Besylate (Norvasc) 5 mg DAILY 07/28/16 09:00 07/30/16 07:45 5 MG Calcium Carbonate/ Glycine (Oscal) 1,000 mg PRN Q4HRS PRN 07/27/16 18:15 Ceftriaxone Sodium 1 gm/ Sodium Chloride 50 ml @ 100 mls/hr Q24H 07/28/16 10:00 07/30/16 08:47 100 MLS/HR Cetirizine HCl (Zyrtec) 10 mg DAILY 07/28/16 09:00 07/29/16 10:20 DC 07/29/16 08:36 10 MG Clonidine HCl (Catapres Tts-2) 1 patch We 07/29/16 09:00 07/29/16 08:58 1 PATCH Darbepoetin Deep (Aranesp) 60 mcg WEEKLYHS 07/28/16 21:00 07/28/16 21:13 60 MCG Diphenhydramine HCl (Benadryl) 25 mg PRN Q6HRS PRN 07/28/16 09:00 Divalproex Sodium (Depakote Sprinkles) 125 mg HS 07/27/16 21:00 07/29/16 21:13 125 MG Ferrous Sulfate (Feosol) 325 mg DAILY 07/28/16 09:00 07/30/16 07:44 325 MG Hydralazine HCl (Apresoline) 100 mg [id number] 07/28/16 19:00 07/30/16 06:00 100 MG Insulin Aspart (Novolog) 0-8 BIDBFRMEAL 07/28/16 09:00 Insulin Detemir (Levemir) 10 units QHS 07/29/16 21:00 07/29/16 21:20 10 UNITS Isosorbide Mononitrate (Imdur) 60 mg DAILY 07/28/16 09:00 07/30/16 07:44 60 MG Magnesium Sulfate/ Dextrose 50 ml @ 25 mls/hr PRN DAILY PRN 07/27/16 15:00 Metoclopramide HCl (Reglan) 5 mg QIDACHS 07/27/16 21:00 07/30/16 07:45 5 MG Metoprolol Tartrate (Lopressor) 100 mg BID 07/27/16 21:00 07/30/16 08:46 100 MG Miconazole Nitrate (Monistat-Derm) 1 hu DAILY 07/28/16 09:00 07/30/16 09:00 1 HU Mirtazapine (Remeron) 15 mg QHS 07/27/16 21:00 07/30/16 09:57 DC 07/29/16 21:13 15 MG Montelukast Sodium (Singulair) 10 mg HS 07/27/16 21:00 07/29/16 21:13 10 MG Mupirocin (Bactroban) 1 hu BID 07/28/16 10:00 07/30/16 08:47 1 HU Non-Formulary Medication 1 mg PRN 07/27/16 18:15 UNV Ondansetron HCl (Zofran) 4 mg PRN Q8HRS PRN 07/27/16 12:45 07/28/16 12:44 DC Senna/Docusate Sodium (Senna Plus) 1 tab PRN DAILY PRN 07/27/16 18:15 Sennosides (Senna) 8.6 mg PRN DAILY PRN 07/27/16 18:15 07/28/16 09:01 DC Sodium Chloride 1,000 ml @ 125 mls/hr Q8H 07/28/16 09:30 07/29/16 21:11 125 MLS/HR Lab Laboratory Tests Test 07/29/16 16:00 07/29/16 17:18 07/29/16 21:13 07/30/16 05:20 Glucose (Fingerstick) 102 mg/dL (70-99) 104 mg/dL (70-99) 112 mg/dL (70-99) White Blood Count 6.0 x10^3/uL (4.0-11.0) Red Blood Count 3.23 x10^6/uL (3.50-5.40) Hemoglobin 9.2 g/dL (12.0-15.5) Hematocrit 28.5 % (36.0-47.0) Mean Corpuscular Volume 88 fL (79-100) Mean Corpuscular Hemoglobin 28 pg (25-35) Mean Corpuscular Hemoglobin Concent 32 g/dL (31-37) Red Cell Distribution Width 14.6 % (11.5-14.5) Platelet Count 188 x10^3/uL (140-400) Neutrophils (%) (Auto) 51 % (31-73) Lymphocytes (%) (Auto) 31 % (24-48) Monocytes (%) (Auto) 15 % (0-9) Eosinophils (%) (Auto) 2 % (0-3) Basophils (%) (Auto) 1 % (0-3) Neutrophils # (Auto) 3.1 x10^3uL (1.8-7.7) Lymphocytes # (Auto) 1.8 x10^3/uL (1.0-4.8) Monocytes # (Auto) 0.9 x10^3/uL (0.0-1.1) Eosinophils # (Auto) 0.1 x10^3/uL (0.0-0.7) Basophils # (Auto) 0.1 x10^3/uL (0.0-0.2) Sodium Level 142 mmol/L (136-145) Potassium Level 4.4 mmol/L (3.5-5.1) Chloride Level 111 mmol/L (98-107) Carbon Dioxide Level 22 mmol/L (21-32) Anion Gap 9 (6-14) Blood Urea Nitrogen 30 mg/dL (7-20) Creatinine 1.8 mg/dL (0.6-1.0) Estimated GFR (Cockcroft-Gault) 32.8 Glucose Level 126 mg/dL (70-99) Calcium Level 8.8 mg/dL (8.5-10.1) Phosphorus Level 3.3 mg/dL (2.6-4.7) Magnesium Level 2.3 mg/dL (1.8-2.4) Albumin 2.6 g/dL (3.4-5.0) Test 07/30/16 11:14 Glucose (Fingerstick) 126 mg/dL (70-99) DUGLAS HAN MD July 30, 2016 11:57
[2016-07-30] MEDS: IV NORMAL SALINE 1000ML BAG 1,000 ML IV SCH ×2 (12:18→22:08)
[2016-07-30 15:00] VITALS: BP 156/65
[2016-07-30 19:00] VITALS: BP 145/60
[2016-07-30] MEDS: CEFPODOXIME PROXETIL 100 MG TABLET. PO SCH (22:09)
[2016-07-30] MEDS: MONTELUKAST SODIUM 10 MG TABLET. PO SCH (22:11)
[2016-07-30] MEDS: DIVALPROEX SPRINKLES 125 MG CAPSULE. PO SCH (22:14)
[2016-07-30] MEDS: INSULIN DETEMIR 300 UNITS/3 ML INSULN.PEN. SQ SCH (22:20)
[2016-07-30 23:00] VITALS: BP 176/77
[2016-07-31 03:00] VITALS: BP 179/87
[2016-07-31] MEDS: METOCLOPRAMIDE HCL 10 MG/10 ML SOLUTION. PO SCH ×4 (04:09→21:00)
[2016-07-31] MEDS: MUPIROCIN 2 % NASAL OINTMENT 22GM TUBE. NS SCH ×2 (04:09→21:00)
[2016-07-31] MEDS: METOPROLOL TART IMMED RELEASE 50 MG TABLET. PO SCH ×2 (04:10→21:00)
[2016-07-31] MEDS: CEFPODOXIME PROXETIL 100 MG TABLET. PO SCH (04:14)
[2016-07-31] MEDS: MONTELUKAST SODIUM 10 MG TABLET. PO SCH (04:15)
[2016-07-31] MEDS: DIVALPROEX SPRINKLES 125 MG CAPSULE. PO SCH (04:15)
[2016-07-31] MEDS: HYDROcodone/APAP 7.5/325MG 1 TAB TABLET PO PRN (04:17)
[2016-07-31] MEDS: IV NORMAL SALINE 1000ML BAG 1,000 ML IV SCH (04:19)
[2016-07-31 06:15] LABS: BASO # 0.1 x10^3/uL (0.0-0.2); BASO % 1 % (0-3); EOS % 1 % (0-3); HEMATOCRIT 28.5 % (36.0-47.0); LYMPH # 1.5 x10^3/uL (1.0-4.8); LYMPH % 21 % (24-48); MEAN CORPUSCULAR HEMOGLOBIN 28 pg (25-35); MEAN CORPUSCULAR HGB CONC 32 g/dL (31-37); MEAN CORPUSCULAR VOLUME 89 fL (79-100); MONO % 13 % (0-9); NEUT % 64 % (31-73); PLATELET COUNT 186 x10^3/uL (140-400); RED CELL DISTRIBUTION WIDTH 14.5 % (11.5-14.5); WHITE BLOOD COUNT 7.4 x10^3/uL (4.0-11.0)
[2016-07-31 06:38] LABS: ALBUMIN 2.6 g/dL (3.4-5.0); CALCIUM 8.6 mg/dL (8.5-10.1); CREATININE 1.5 mg/dL (0.6-1.0); GFR 40.5; PHOSPHORUS 2.8 mg/dL (2.6-4.7); POTASSIUM 4.2 mmol/L (3.5-5.1)
[2016-07-31] MEDS: INSULIN ASPART 300 UNITS/3 ML INSULN.PEN SQ SCH ×2 (07:30→16:30)
[2016-07-31 07:38] VITALS: BP 151/60
--- NOTE | 2016-07-31 08:23 | PDOC ---
MARINEMARCUS CLIENT RELATIONS ASSOCIATE 07/31/16 0823: IM PROGRESS NOTES- Subjective Subjective lethargic Objective Objective opened eyes to name, lethargic. Not following commands. Arms raised and she lowered them slowly bilaterally. Pain medication at ~0400. MS changes started last evening. Did not eat dinner. negative dyspnea. Vitals Vital Signs Date Time Temp Pulse Resp B/P (MAP) Pulse Ox O2 Delivery O2 Flow Rate FiO2 07/31/16 05:17 Room Air 07/31/16 04:10 94 179/87 07/31/16 03:00 98.8 20 92 98.8 Input & Output Intake and Output 07/31/16 07:00 Intake Total 820 ml Output Total 1000 ml Balance -180 ml Intake Oral 820 ml Output Urine Total 1000 ml # Bowel Movements 1 Physical Exam Physical Exam Physical Exam VS: 151/60- 69 -18 -97.7Ax Sat 96% BS 117 General appearance - lethargic weak, ill appearing, and in no distress Mental Status - lethargic Head - normal Chest - clear to auscultation, no wheezes, rales or rhonchi, decreased bases Heart - S1 and S2 normal Abdomen - soft, nontender, nondistended, BS+, obese Gu: menjivar davon urine Neurological - letargic, + mobility UE but not to command, Musculoskeletal - no muscular tenderness noted Extremities - LUE swelling. Skin - warm and dry Labs Laboratory Tests Test 07/29/16 08:15 07/29/16 11:32 07/29/16 16:00 07/29/16 17:18 Glucose (Fingerstick) 61 mg/dL (70-99) 150 mg/dL (70-99) 102 mg/dL (70-99) 104 mg/dL (70-99) Test 07/29/16 21:13 07/30/16 05:20 07/30/16 11:14 07/30/16 16:29 Glucose (Fingerstick) 112 mg/dL (70-99) 126 mg/dL (70-99) 150 mg/dL (70-99) White Blood Count 6.0 x10^3/uL (4.0-11.0) Red Blood Count 3.23 x10^6/uL (3.50-5.40) Hemoglobin 9.2 g/dL (12.0-15.5) Hematocrit 28.5 % (36.0-47.0) Mean Corpuscular Volume 88 fL (79-100) Mean Corpuscular Hemoglobin 28 pg (25-35) Mean Corpuscular Hemoglobin Concent 32 g/dL (31-37) Red Cell Distribution Width 14.6 % (11.5-14.5) Platelet Count 188 x10^3/uL (140-400) Neutrophils (%) (Auto) 51 % (31-73) Lymphocytes (%) (Auto) 31 % (24-48) Monocytes (%) (Auto) 15 % (0-9) Eosinophils (%) (Auto) 2 % (0-3) Basophils (%) (Auto) 1 % (0-3) Neutrophils # (Auto) 3.1 x10^3uL (1.8-7.7) Lymphocytes # (Auto) 1.8 x10^3/uL (1.0-4.8) Monocytes # (Auto) 0.9 x10^3/uL (0.0-1.1) Eosinophils # (Auto) 0.1 x10^3/uL (0.0-0.7) Basophils # (Auto) 0.1 x10^3/uL (0.0-0.2) Sodium Level 142 mmol/L (136-145) Potassium Level 4.4 mmol/L (3.5-5.1) Chloride Level 111 mmol/L (98-107) Carbon Dioxide Level 22 mmol/L (21-32) Anion Gap 9 (6-14) Blood Urea Nitrogen 30 mg/dL (7-20) Creatinine 1.8 mg/dL (0.6-1.0) Estimated GFR (Cockcroft-Gault) 32.8 Glucose Level 126 mg/dL (70-99) Calcium Level 8.8 mg/dL (8.5-10.1) Phosphorus Level 3.3 mg/dL (2.6-4.7) Magnesium Level 2.3 mg/dL (1.8-2.4) Albumin 2.6 g/dL (3.4-5.0) Test 07/30/16 20:52 07/31/16 05:30 Glucose (Fingerstick) 156 mg/dL (70-99) White Blood Count 7.4 x10^3/uL (4.0-11.0) Red Blood Count 3.20 x10^6/uL (3.50-5.40) Hemoglobin 9.0 g/dL (12.0-15.5) Hematocrit 28.5 % (36.0-47.0) Mean Corpuscular Volume 89 fL (79-100) Mean Corpuscular Hemoglobin 28 pg (25-35) Mean Corpuscular Hemoglobin Concent 32 g/dL (31-37) Red Cell Distribution Width 14.5 % (11.5-14.5) Platelet Count 186 x10^3/uL (140-400) Neutrophils (%) (Auto) 64 % (31-73) Lymphocytes (%) (Auto) 21 % (24-48) Monocytes (%) (Auto) 13 % (0-9) Eosinophils (%) (Auto) 1 % (0-3) Basophils (%) (Auto) 1 % (0-3) Neutrophils # (Auto) 4.7 x10^3uL (1.8-7.7) Lymphocytes # (Auto) 1.5 x10^3/uL (1.0-4.8) Monocytes # (Auto) 1.0 x10^3/uL (0.0-1.1) Eosinophils # (Auto) 0.1 x10^3/uL (0.0-0.7) Basophils # (Auto) 0.1 x10^3/uL (0.0-0.2) Sodium Level 141 mmol/L (136-145) Potassium Level 4.2 mmol/L (3.5-5.1) Chloride Level 112 mmol/L (98-107) Carbon Dioxide Level 21 mmol/L (21-32) Anion Gap 8 (6-14) Blood Urea Nitrogen 20 mg/dL (7-20) Creatinine 1.5 mg/dL (0.6-1.0) Estimated GFR (Cockcroft-Gault) 40.5 Glucose Level 127 mg/dL (70-99) Calcium Level 8.6 mg/dL (8.5-10.1) Phosphorus Level 2.8 mg/dL (2.6-4.7) Magnesium Level 1.9 mg/dL (1.8-2.4) Albumin 2.6 g/dL (3.4-5.0) Laboratory Tests Test 07/30/16 11:14 07/30/16 16:29 07/30/16 20:52 07/31/16 05:30 Glucose (Fingerstick) 126 mg/dL (70-99) 150 mg/dL (70-99) 156 mg/dL (70-99) White Blood Count 7.4 x10^3/uL (4.0-11.0) Red Blood Count 3.20 x10^6/uL (3.50-5.40) Hemoglobin 9.0 g/dL (12.0-15.5) Hematocrit 28.5 % (36.0-47.0) Mean Corpuscular Volume 89 fL (79-100) Mean Corpuscular Hemoglobin 28 pg (25-35) Mean Corpuscular Hemoglobin Concent 32 g/dL (31-37) Red Cell Distribution Width 14.5 % (11.5-14.5) Platelet Count 186 x10^3/uL (140-400) Neutrophils (%) (Auto) 64 % (31-73) Lymphocytes (%) (Auto) 21 % (24-48) Monocytes (%) (Auto) 13 % (0-9) Eosinophils (%) (Auto) 1 % (0-3) Basophils (%) (Auto) 1 % (0-3) Neutrophils # (Auto) 4.7 x10^3uL (1.8-7.7) Lymphocytes # (Auto) 1.5 x10^3/uL (1.0-4.8) Monocytes # (Auto) 1.0 x10^3/uL (0.0-1.1) Eosinophils # (Auto) 0.1 x10^3/uL (0.0-0.7) Basophils # (Auto) 0.1 x10^3/uL (0.0-0.2) Sodium Level 141 mmol/L (136-145) Potassium Level 4.2 mmol/L (3.5-5.1) Chloride Level 112 mmol/L (98-107) Carbon Dioxide Level 21 mmol/L (21-32) Anion Gap 8 (6-14) Blood Urea Nitrogen 20 mg/dL (7-20) Creatinine 1.5 mg/dL (0.6-1.0) Estimated GFR (Cockcroft-Gault) 40.5 Glucose Level 127 mg/dL (70-99) Calcium Level 8.6 mg/dL (8.5-10.1) Phosphorus Level 2.8 mg/dL (2.6-4.7) Magnesium Level 1.9 mg/dL (1.8-2.4) Albumin 2.6 g/dL (3.4-5.0) Meds Current Medications Cefpodoxime Proxetil (Vantin) 200 mg BID PO Last administered on 07/31/16t 04:14 ; Start 07/30/16 at 21:00; Stop 07/31/16 at 08:08; Status DC Ceftriaxone Sodium 1 gm/ Sodium Chloride 50 ml @ 100 mls/hr Q24H IV ; Start 07/31/16 at 08:15; Stop 07/31/16 at 08:15; Status DC Assessment Assessment IMPRESSION: 1. acute renal failure KULWINDER, VMN with underlying CKD III 2. acute metabolic encephalopathy 3. UTI no sepsis 4. anemia chronic disease renal/fe 5. elevated uric acid 6. DM II with nephropathy 7. CKD III hypertension/diabetes 8. hypertension 9. diarrhea 10. HTN 11. hyperlipidemia 12. GERD 13. chronic LBP 14. severe weakness and debility 15. severe PCL malnutrition -anorexia 16. OA generalized 17. thyroid nodule 1.6cm PLAN: ARF nephrology consult Admit BUN 74 07/31 20 Cr 3.7 1.5 Na 139 141 K 4.9 4.2 uric acid 13.8 IVF in ED otherwise no IVF ?gout-start colcrys? Begin IVF NS 50cc/hr-increased to 125cc/hr 07/29 acute metabolic encephalopathy monitor improved 07/31-MS changes-worsened prior to hydrocodone this AM. Will check CT head w/o contrast, consult neurology Remeron stopped 07/29 zyrtec stopped 07/30 DM II with hypoglycemia appetite decreased BS 0400 43 Decrease Levemir to 40units daily continue SSI low intensity BS 127-162 prior to 0400, this AM 94 Diet changed to cardiac: not on ADA diet at ND. BS 126-156 UTI no sepsis + nitrite, neg blood, + leukoesterase Begin Rocephin 1gm IV until urine CS results available h/o cefepime w/o reaction lactic acid 1.1 Ecoli sensitive to Rocephin Pharmacy changed to Vantin-changed back to Rocephin IV due to MS changes/not taking meds anemia h/o fe deficiency, on ferrous sulfate Fe 82, TIBC 239, Fe sat 34, Ferritin 155 Admit 10.3 05/05 9.0 severe weakness and debility PT OT severe PCL malnutrition monitor oral intake thyroid nodule check TSH T4 DVT/GI prophylaxis SCD/BHAVANI PPI LUE edema suspect IV infiltration check US LUE For more details regarding further plans, please refer to the orders. Malignant hypertension- consult cardiology. still very sleepy.can not decrease catapres at this time. IV Rocephin. ? Underling depression.Prognosis is poor. see orders. The patient was seen and examined by me. Chart reviewed and plan of care formulated. Discussed with, reviewed and agree with SERVICE STATION CONSOLE OPERATOR's notes, plan of care and orders with modifications as necessary. For more details regarding further plans, please refer to the orders. Plan Plan For more details regarding further plans, please refer to the orders. YURY TANG MD 07/31/16 1004: IM PROGRESS NOTES- Assessment Assessment Much more awake- not eating.Encouraged to eat. Hypertension- increase Imdur to 90 mg daily. Fluid retention- d/c IV fluids,Lasix 20 mg poX1- this will help BP.No cardiology consult. The patient was seen and examined by me. Chart reviewed and plan of care formulated. Discussed with, reviewed and agree with SERVICE STATION CONSOLE OPERATOR's notes, plan of care and orders with modifications as necessary. For more details regarding further plans, please refer to the orders. MARCUS HAWTHORNE APRN July 31, 2016 08:23 YURY TANG MD July 31, 2016 10:04
[2016-07-31 09:02] LABS: FREE T4 1.27 ng/dL (0.76-1.46)
[2016-07-31] MEDS: amLODIPine BESYLATE 5 MG TABLET PO SCH (09:04)
[2016-07-31] MEDS: FERROUS SULFATE 325 MG TABLET. PO SCH (09:05)
[2016-07-31] MEDS: ISOSORBIDE MONONITRATE ER 30 MG TAB.ER.24H PO SCH (09:05)
[2016-07-31] MEDS: MICONAZOLE NITRATE 2% TOPICAL CREAM 28GM TUBE. TP SCH (09:10)
[2016-07-31] MEDS ORDERED: FUROSEMIDE 20 MG TABLET PO ONE (09:45)
--- NOTE | 2016-07-31 10:23 | RAD ---
Indication change in mental status. Noncontrast images of the head were obtained. No prior imaging is available. The calvarium appears unremarkable. The visualized paranasal sinuses appear normal. There is some diminished aeration of mastoid air cells likely incidental. There is no subdural or epidural hematoma. Ventricles and sulci are normal given the patient's age. No mass or midline shift is seen. There is no hemorrhage. No acute finding is apparent. IMPRESSION: No acute or significant finding seen on noncontrast CT images of the head. PQRS Compliance Statement: One or more of the following individualized dose reduction techniques were utilized for this examination: 1. Automated exposure control 2. Adjustment of the mA and/or kV according to patient size 3. Use of iterative reconstruction technique
--- NOTE | 2016-07-31 10:36 | RAD ---
Indication left arm swelling. Grayscale color Doppler and spectral imaging was performed. Examination was targeted to the veins of the left upper extremity. The internal jugular vein is widely patent. No thrombus is seen in the subclavian or in the axillary vein. The basilic, cephalic, brachial and visualized radial and ulnar veins appear normal. No thrombus is seen. IMPRESSION: Negative left upper extremity venous analysis for DVT
[2016-07-31 11:10] VITALS: BP 166/69
--- NOTE | 2016-07-31 11:14 | PDOC ---
SUBJECTIVE ROS F/up KULWINDER/ CKDIII Just back from radiology Unable to get ROS from pt OBJECTIVE Vital Signs Vital Signs Date Time Temp Pulse Resp B/P (MAP) Pulse Ox O2 Delivery O2 Flow Rate FiO2 07/31/16 09:05 69 151/60 07/31/16 07:38 97.7 18 94 Room Air 97.7 I & 0 Intake and Output 07/31/16 07:00 Intake Total 820 ml Output Total 1000 ml Balance -180 ml Intake Oral 820 ml Output Urine Total 1000 ml # Bowel Movements 1 PHYSICAL EXAM Physical Exam GEN: Awake, Oriented x 0, In no distress; flat affect EYES: Vision Unchanged, Conjunctiva Normal EN: No EN Drainage, Mucous Membranes moist, NECK: no JVD, no JVP, Supple, no Thyromegaly CVS: S1S2, ? Murmur, No Gallop, No Rub,no Edema RESP: no Rales, no Rhonchi,no Acc. Muscle Use GI: BS + ve, NO Bruit, Non Tender, Non Distended - obese : no CVA tenderness, no Suprapubic Tenderness DIAGNOSIS/ASSESSMENT Assessment & Plan KULWINDER: much improved. UO is much better. Anorexia - may have contributed to vol depletion too. ? PEG Tube? CKD III in 2014 with GFR 44 calc. presumed due to DM/ HTnisve /NS - creat is back close to previous baseline Anemia: nwo no EPO HTN: Current BP meds reviewed. See orders for changes. ? Vol depeltion - watch UO off IVF and hold diuretics OK to D/c back to NH from renal standpoint. COMMENT/RELEVANT DATA Meds Current Medications Medications (Trade) Dose Ordered Sig/Mateo Start Time Stop Time Status Last Admin Dose Admin Acetaminophen (Tylenol) 650 mg PRN Q6HRS PRN 07/27/16 18:15 Acetaminophen/ Hydrocodone Bitart (Lortab 7.5/325) 1 tab PRN Q6HRS PRN 07/27/16 18:00 07/31/16 04:17 1 TAB Amlodipine Besylate (Norvasc) 5 mg DAILY 07/28/16 09:00 07/31/16 09:04 5 MG Calcium Carbonate/ Glycine (Oscal) 1,000 mg PRN Q4HRS PRN 07/27/16 18:15 Cefpodoxime Proxetil (Vantin) 200 mg BID 07/30/16 21:00 07/31/16 08:08 DC 07/31/16 04:14 200 MG Ceftriaxone Sodium 1 gm/ Sodium Chloride 50 ml @ 100 mls/hr Q24H 07/31/16 08:15 Cancel Cetirizine HCl (Zyrtec) 10 mg DAILY 07/28/16 09:00 07/29/16 10:20 DC 07/29/16 08:36 10 MG Clonidine HCl (Catapres Tts-2) 1 patch We 07/29/16 09:00 07/29/16 08:58 1 PATCH Darbepoetin Deep (Aranesp) 60 mcg WEEKLYHS 07/28/16 21:00 07/28/16 21:13 60 MCG Diphenhydramine HCl (Benadryl) 25 mg PRN Q6HRS PRN 07/28/16 09:00 Divalproex Sodium (Depakote Sprinkles) 125 mg HS 07/27/16 21:00 07/31/16 04:15 125 MG Ferrous Sulfate (Feosol) 325 mg DAILY 07/28/16 09:00 07/31/16 09:05 325 MG Furosemide (Lasix) 20 mg 1X ONCE 07/31/16 09:45 07/31/16 09:46 DC 07/31/16 10:37 20 MG Hydralazine HCl (Apresoline) 100 mg [id number] 07/28/16 19:00 07/31/16 09:03 100 MG Insulin Aspart (Novolog) 0-8 BIDBFRMEAL 07/28/16 09:00 Insulin Detemir (Levemir) 10 units QHS 07/29/16 21:00 07/30/16 22:20 10 UNITS Isosorbide Mononitrate (Imdur) 90 mg DAILY 07/31/16 09:00 07/31/16 09:05 90 MG Magnesium Sulfate/ Dextrose 50 ml @ 25 mls/hr PRN DAILY PRN 07/27/16 15:00 Metoclopramide HCl (Reglan) 5 mg QIDACHS 07/27/16 21:00 07/31/16 04:09 5 MG Metoprolol Tartrate (Lopressor) 100 mg BID 07/27/16 21:00 07/31/16 04:10 100 MG Miconazole Nitrate (Monistat-Derm) 1 hu DAILY 07/28/16 09:00 07/31/16 09:10 1 HU Mirtazapine (Remeron) 15 mg QHS 07/27/16 21:00 07/30/16 09:57 DC 07/29/16 21:13 15 MG Montelukast Sodium (Singulair) 10 mg HS 07/27/16 21:00 07/31/16 04:15 10 MG Mupirocin (Bactroban) 1 hu BID 07/28/16 10:00 07/31/16 04:09 1 HU Non-Formulary Medication 1 mg PRN 07/27/16 18:15 UNV Ondansetron HCl (Zofran) 4 mg PRN Q8HRS PRN 07/27/16 12:45 07/28/16 12:44 DC Senna/Docusate Sodium (Senna Plus) 1 tab PRN DAILY PRN 07/27/16 18:15 Sennosides (Senna) 8.6 mg PRN DAILY PRN 07/27/16 18:15 07/28/16 09:01 DC Sodium Chloride 1,000 ml @ 125 mls/hr Q8H 07/28/16 09:30 07/31/16 10:06 DC 07/31/16 04:19 125 MLS/HR Lab Laboratory Tests Test 07/30/16 11:14 07/30/16 16:29 07/30/16 20:52 07/31/16 05:30 Glucose (Fingerstick) 126 mg/dL (70-99) 150 mg/dL (70-99) 156 mg/dL (70-99) White Blood Count 7.4 x10^3/uL (4.0-11.0) Red Blood Count 3.20 x10^6/uL (3.50-5.40) Hemoglobin 9.0 g/dL (12.0-15.5) Hematocrit 28.5 % (36.0-47.0) Mean Corpuscular Volume 89 fL (79-100) Mean Corpuscular Hemoglobin 28 pg (25-35) Mean Corpuscular Hemoglobin Concent 32 g/dL (31-37) Red Cell Distribution Width 14.5 % (11.5-14.5) Platelet Count 186 x10^3/uL (140-400) Neutrophils (%) (Auto) 64 % (31-73) Lymphocytes (%) (Auto) 21 % (24-48) Monocytes (%) (Auto) 13 % (0-9) Eosinophils (%) (Auto) 1 % (0-3) Basophils (%) (Auto) 1 % (0-3) Neutrophils # (Auto) 4.7 x10^3uL (1.8-7.7) Lymphocytes # (Auto) 1.5 x10^3/uL (1.0-4.8) Monocytes # (Auto) 1.0 x10^3/uL (0.0-1.1) Eosinophils # (Auto) 0.1 x10^3/uL (0.0-0.7) Basophils # (Auto) 0.1 x10^3/uL (0.0-0.2) Sodium Level 141 mmol/L (136-145) Potassium Level 4.2 mmol/L (3.5-5.1) Chloride Level 112 mmol/L (98-107) Carbon Dioxide Level 21 mmol/L (21-32) Anion Gap 8 (6-14) Blood Urea Nitrogen 20 mg/dL (7-20) Creatinine 1.5 mg/dL (0.6-1.0) Estimated GFR (Cockcroft-Gault) 40.5 Glucose Level 127 mg/dL (70-99) Calcium Level 8.6 mg/dL (8.5-10.1) Phosphorus Level 2.8 mg/dL (2.6-4.7) Magnesium Level 1.9 mg/dL (1.8-2.4) Albumin 2.6 g/dL (3.4-5.0) Thyroid Stimulating Hormone (TSH) 0.738 uIU/mL (0.358-3.74) Free Thyroxine 1.27 ng/dL (0.76-1.46) Test 07/31/16 07:41 Glucose (Fingerstick) 117 mg/dL (70-99) DUGLAS HAN MD July 31, 2016 11:14
--- NOTE | 2016-07-31 12:18 | PDOC2 ---
NEUROLOGY CONSULT Date of Admission Date of Admission DATE: 07/31/16 TIME: 12:05 Reason for Consult Reason for Consult: Mental status change Referring Physician Referring Physician: Dr. Rios Source Source: Chart review, Patient History of Present Illness History of Present Illness The patient is a 81-year-old right-handed female long term resident admitted 3 days ago for failure to thrive, not eating, found to be in acute renal failure. She denies any prior history of dementia. She was less responsive this morning and so a neurology consult was called. She denies any history of stroke , seizure, or head injury. She is bright and alert now. The patient's daughter says that the patient voluntarily enter the long term because she was having falls. She is usually lucid. Past Medical History Cardiovascular: CHF, HTN, Hyperlipidemia, Other (peripheral vascular disease) Pulmonary: Bronchitis, Pneumonia CENTRAL NERVOUS SYSTEM: Other ("mononeuropathy unspecified" listed in nursing history) GI: GERD, Gastritis, Other (esophagitis) Heme/Onc: Anemia NOS Psych: Anxiety, Depression Musculoskeletal: low back pain, Osteoarthritis Renal/: Chronic renal insuff (CKD III), Urinary Incontinence Endocrine: Diabetes, Other (thyroid nodule) Past Surgical History Past Surgical History: Hernia Repair (ventral), Tonsillectomy, Hysterectomy Family History Family History: No pertinent hx Social History Social History , long term resident, denies alcohol or tobacco Current Medications Current Medications Current Medications Sodium Chloride 500 ml @ 500 mls/hr 1X ONCE IV Last administered on 07/27/16t 12:30; Start 07/27/16 at 12:30; Stop 07/27/16 at 13:29; Status DC Ondansetron HCl (Zofran) 4 mg PRN Q8HRS PRN IV NAUSEA/VOMITING; Start 07/27/16 at 12:45; Stop 07/28/16 at 12:44; Status DC Acetaminophen (Tylenol) 650 mg PRN Q4HRS PRN PO FEVER; Start 07/27/16 at 12:45; Stop 07/28/16 at 12:44; Status DC Sodium Chloride 1,000 ml @ 75 mls/hr 1X ONCE IV Last administered on 14:43; Start 07/27/16 at 12:45; Stop 07/28/16 at 02:04; Status DC Magnesium Sulfate/ Dextrose 50 ml @ 25 mls/hr PRN DAILY PRN IV for Mag < 1.7 on am labs; Start 07/27/16 at 15:00 Acetaminophen/ Hydrocodone Bitart (Lortab 7.5/325) 1 tab PRN Q6HRS PRN PO PAIN Last administered on 07/31/16 04:17; Start 07/27/16 at 18:00 Acetaminophen (Tylenol) 650 mg PRN Q6HRS PRN PO PAIN; Start 07/27/16 at 18:15 Amlodipine Besylate (Norvasc) 5 mg DAILY PO Last administered on 07/31/16 09:04 ; Start 07/28/16 at 09:00 Calcium Carbonate/ Glycine (Oscal) 1,000 mg PRN Q4HRS PRN PO INDIGESTION; Start 07/27/16 at 18:15 Cetirizine HCl (Zyrtec) 10 mg DAILY PO Last administered on 07/29/16 08:36; Start 07/28/16 at 09:00; Stop 07/29/16 at 10:20; Status DC Clonidine HCl (Catapres Tts-2) 1 patch WEEKLY TD ; Start 07/28/16 at 09:00; Stop 07/28/16 at 09:00; Status DC Diphenhydramine HCl (Benadryl) 25 mg Q6HRS PO Last administered on 07/28/16 05: 48; Start 07/28/16 at 00:00; Stop 07/28/16 at 09:01; Status DC Divalproex Sodium (Depakote Sprinkles) 125 mg HS PO Last administered on 04:15; Start 07/27/16 at 21:00 Ferrous Sulfate (Feosol) 325 mg DAILY PO Last administered on 07/31/16 09:05; Start 07/28/16 at 09:00 Isosorbide Mononitrate (Imdur) 60 mg DAILY PO ; Start 07/28/16 at 09:00; Stop 07/28/16 at 09:00; Status DC Metoclopramide HCl (Reglan) 5 mg QIDACHS PO Last administered on 07/31/16 04:09 ; Start 07/27/16 at 21:00 Mirtazapine (Remeron) 15 mg QHS PO Last administered on 07/29/16 21:13; Start 07/27/16 at 21:00; Stop 07/30/16 at 09:57; Status DC Montelukast Sodium (Singulair) 10 mg HS PO Last administered on 07/31/16 04:15 ; Start 07/27/16 at 21:00 Sennosides (Senna) 8.6 mg PRN DAILY PRN PO CONSTIPATION; Start 07/27/16 at 18:15 ; Stop 07/28/16 at 09:01; Status DC Senna/Docusate Sodium (Senna Plus) 1 tab PRN DAILY PRN PO CONSTIPATION; Start 07/27/16 at 18:15 Non-Formulary Medication 1 mg PRN IM ; Start 07/27/16 at 18:15; Status UNV Hydralazine HCl (Apresoline) 100 mg [id number] PO Last administered on 07/31/16 09:03; Start 07/28/16 at 19:00 Metoprolol Tartrate (Lopressor) 100 mg BID PO Last administered on 07/31/16 04: 10; Start 07/27/16 at 21:00 Miconazole Nitrate (Monistat-Derm) 1 hu DAILY TP Last administered on 09:10; Start 07/28/16 at 09:00 Insulin Detemir (Levemir) 50 units QHS SQ Last administered on 07/27/16 21:06; Start 07/27/16 at 21:00; Stop 07/28/16 at 09:35; Status DC Clonidine HCl (Catapres Tts-2) 1 patch We TD Last administered on 07/29/16 08: 58; Start 07/29/16 at 09:00 Isosorbide Mononitrate (Imdur) 60 mg DAILY PO Last administered on 07/30/16 07: 44; Start 07/28/16 at 09:00; Stop 07/31/16 at 08:58; Status DC Diphenhydramine HCl (Benadryl) 25 mg PRN Q6HRS PRN PO NAUSEA; Start 07/28/16 at 09:00 Insulin Aspart (Novolog) 0-8 BIDBFRMEAL SQ ; Start 07/28/16 at 09:00 Mupirocin (Bactroban) 1 hu BID NS Last administered on 07/31/16 04:09; Start 07/28/16 at 10:00 Ceftriaxone Sodium 1 gm/ Sodium Chloride 50 ml @ 100 mls/hr Q24H IV Last administered on 07/31/16 09:09; Start 07/28/16 at 10:00 Insulin Detemir (Levemir) 40 units QHS SQ Last administered on 07/28/16 21:23; Start 07/28/16 at 21:00; Stop 07/29/16 at 08:59; Status DC Sodium Chloride 1,000 ml @ 125 mls/hr Q8H IV Last administered on 07/31/16 04: 19; Start 07/28/16 at 09:30; Stop 07/31/16 at 10:06; Status DC Darbepoetin Deep (Aranesp) 60 mcg WEEKLYHS SQ Last administered on 07/28/16 21: 13; Start 07/28/16 at 21:00 Insulin Detemir (Levemir) 10 units QHS SQ Last administered on 07/30/16 22:20; Start 07/29/16 at 21:00 Cefpodoxime Proxetil (Vantin) 200 mg BID PO Last administered on 07/31/16 04:14 ; Start 07/30/16 at 21:00; Stop 07/31/16 at 08:08; Status DC Ceftriaxone Sodium 1 gm/ Sodium Chloride 50 ml @ 100 mls/hr Q24H IV ; Start 07/31/16 at 08:15; Stop 07/31/16 at 08:15; Status DC Ceftriaxone Sodium 1 gm/ Sodium Chloride 50 ml @ 100 mls/hr Q24H IV ; Start 07/31/16 at 08:15; Status Cancel Isosorbide Mononitrate (Imdur) 90 mg DAILY PO Last administered on 07/31/16 09: 05; Start 07/31/16 at 09:00 Furosemide (Lasix) 20 mg 1X ONCE PO Last administered on 07/31/16 10:37; Start 07/31/16 at 09:45; Stop 07/31/16 at 09:46; Status DC Active Scripts Active Reported Humalog (Insulin Lispro) 100 Unit/1 Ml Cartridge 100 Unit SQ HS Inject as per sliding scale; if 150-200= 1 unit; 201-250=2units; 251-300=3units; 301-350=4units; 351-400=5units. Notify MD if FSBG is greater than 400 or less than 80. Humalog (Insulin Lispro) 100 Unit/1 Ml Cartridge 25 Unit SQ BID Lantus Solostar (Insulin Glargine,Hum.rec.anlog) 100 Unit/1 Ml Insuln.pen 67 Unit SQ QHS Montelukast Sodium Tablet (Montelukast Sodium) 10 Mg Tablet 10 Mg PO HS Senokot-S Tablet (Sennosides/Docusate Sodium) 1 Each Tablet 1 Tab PO DAILY PRN Remeron (Mirtazapine) 15 Mg Tablet 1 Tab PO QHS Metoclopramide Hcl 10 Mg/10 Ml Solution 10 Mg PO QIDACHS Glucose Gel (Dextrose) 38 Gm Gel..gram. 38 Gm PO Glucagon Emergency Kit (Glucagon,Human Recombinant) 1 Mg Kit 1 Mg IM PRN Ferrous Sulfate 325 Mg Tablet 1 Tab PO DAILY Depakote Sprinkle (Divalproex Sodium) 125 Mg Cap.sprink 125 Mg PO HS Clonidine Tts-2 (Clonidine) 1 Each Patch.tdwk 1 Patch TD WEEKLY Calcium Carbonate 500 Mg Tablet 1,000 Mg PO Q4HRS PRN Aldactone (Spironolactone) 25 Mg Tablet 1 Tab PO BID Aloe Logan (Miconazole Nitrate) 56 Gm Oint...g. 56 Gm TP DAILY Furosemide 40 Mg Tablet 1 Tab PO DAILY Tylenol (Acetaminophen) 325 Mg Tablet 2 Tab PO Q6HRS PRN Senokot (Sennosides) 8.6 Mg Tablet 1 Tab PO DAILY PRN Imdur (Isosorbide Mononitrate) 60 Mg Tab.er.24h 1 Tab PO DAILY Cetirizine Hcl 10 Mg Tablet 1 Tab PO DAILY Metoprolol Tartrate 100 Mg Tablet 100 Mg PO BID Nitrostat (Nitroglycerin) 0.4 Mg Tab.subl 0.4 Mg SL Losartan Potassium 100 Mg Tablet 100 Mg PO HS Hydralazine Hcl 100 Mg Tablet 100 Mg PO [id number] Amlodipine Besylate 10 Mg Tablet 5 Mg PO DAILY Benadryl (Diphenhydramine Hcl) 25 Mg Capsule 25 Mg PO Q6HRS Allergies Allergies: Coded Allergies: Penicillins (Verified Allergy, Intermediate, "Throat itches and closes up " PER PT NO ALLERGY, 07/28/16) Tolerates cefepime citalopram (Verified Allergy, Intermediate, Unknown, 07/27/16) I S O L A T I O N *CONTACT* (Verified Allergy, Unknown, 07/28/16) mrsa aspirin (Verified Adverse Reaction, Intermediate, Nausea and Vomiting, 07/27) ROS Review of System Patient denies fevers, chills, weight loss, dyspnea, angina, abdominal pain, change in bowels, or dysuria. 14 point review of systems is negative. Physical Exam Physical Examination PHYSICAL EXAMINATION: Vital signs: see above. General appearance is normal and in no acute distress. HEENT: Normocephalic and nontraumatic. Eyes, nose, ears, and throat are unremarkable. Neck is supple. No lymphadenopathy. No bruits are heard over the carotid artery. No crepitus. NEUROLOGICAL EXAMINATION: Mental Status Examination: Alert. Oriented only to person. Pupils are equal round and reactive to light and accommodation. Extraocular movements are intact. Visual field exam shows no defect on the direct confrontation. No motor or sensory deficits on the facial exam. Uvula in the midline and the soft palate elevated symmetrically. No deviation of the tongue to any direction. Gross hearing is normal. Shoulder shrug normal. Muscle tone is normal. Muscle strength is 4/5. Deep tendon reflexes are 1+ all around. Bilateral grasp reflexes. Plantar reflex is with flexion response bilaterally. [id number]-[id number] test performance is accurate. Alternative movements are accurate. Gait not tested. Sensory exam shows no deficits. No cerebellar signs are elicited. Vitals VITALS Vital Signs Date Time Temp Pulse Resp B/P (MAP) Pulse Ox O2 Delivery O2 Flow Rate FiO2 07/31/16 11:10 101.3 89 18 166/69 (101) 95 Room Air 101.3 Labs Labs Laboratory Tests Test 07/29/16 16:00 07/29/16 17:18 07/29/16 21:13 07/30/16 05:20 Glucose (Fingerstick) 102 mg/dL (70-99) 104 mg/dL (70-99) 112 mg/dL (70-99) White Blood Count 6.0 x10^3/uL (4.0-11.0) Red Blood Count 3.23 x10^6/uL (3.50-5.40) Hemoglobin 9.2 g/dL (12.0-15.5) Hematocrit 28.5 % (36.0-47.0) Mean Corpuscular Volume 88 fL (79-100) Mean Corpuscular Hemoglobin 28 pg (25-35) Mean Corpuscular Hemoglobin Concent 32 g/dL (31-37) Red Cell Distribution Width 14.6 % (11.5-14.5) Platelet Count 188 x10^3/uL (140-400) Neutrophils (%) (Auto) 51 % (31-73) Lymphocytes (%) (Auto) 31 % (24-48) Monocytes (%) (Auto) 15 % (0-9) Eosinophils (%) (Auto) 2 % (0-3) Basophils (%) (Auto) 1 % (0-3) Neutrophils # (Auto) 3.1 x10^3uL (1.8-7.7) Lymphocytes # (Auto) 1.8 x10^3/uL (1.0-4.8) Monocytes # (Auto) 0.9 x10^3/uL (0.0-1.1) Eosinophils # (Auto) 0.1 x10^3/uL (0.0-0.7) Basophils # (Auto) 0.1 x10^3/uL (0.0-0.2) Sodium Level 142 mmol/L (136-145) Potassium Level 4.4 mmol/L (3.5-5.1) Chloride Level 111 mmol/L (98-107) Carbon Dioxide Level 22 mmol/L (21-32) Anion Gap 9 (6-14) Blood Urea Nitrogen 30 mg/dL (7-20) Creatinine 1.8 mg/dL (0.6-1.0) Estimated GFR (Cockcroft-Gault) 32.8 Glucose Level 126 mg/dL (70-99) Calcium Level 8.8 mg/dL (8.5-10.1) Phosphorus Level 3.3 mg/dL (2.6-4.7) Magnesium Level 2.3 mg/dL (1.8-2.4) Albumin 2.6 g/dL (3.4-5.0) Test 07/30/16 11:14 07/30/16 16:29 07/30/16 20:52 07/31/16 05:30 Glucose (Fingerstick) 126 mg/dL (70-99) 150 mg/dL (70-99) 156 mg/dL (70-99) White Blood Count 7.4 x10^3/uL (4.0-11.0) Red Blood Count 3.20 x10^6/uL (3.50-5.40) Hemoglobin 9.0 g/dL (12.0-15.5) Hematocrit 28.5 % (36.0-47.0) Mean Corpuscular Volume 89 fL (79-100) Mean Corpuscular Hemoglobin 28 pg (25-35) Mean Corpuscular Hemoglobin Concent 32 g/dL (31-37) Red Cell Distribution Width 14.5 % (11.5-14.5) Platelet Count 186 x10^3/uL (140-400) Neutrophils (%) (Auto) 64 % (31-73) Lymphocytes (%) (Auto) 21 % (24-48) Monocytes (%) (Auto) 13 % (0-9) Eosinophils (%) (Auto) 1 % (0-3) Basophils (%) (Auto) 1 % (0-3) Neutrophils # (Auto) 4.7 x10^3uL (1.8-7.7) Lymphocytes # (Auto) 1.5 x10^3/uL (1.0-4.8) Monocytes # (Auto) 1.0 x10^3/uL (0.0-1.1) Eosinophils # (Auto) 0.1 x10^3/uL (0.0-0.7) Basophils # (Auto) 0.1 x10^3/uL (0.0-0.2) Sodium Level 141 mmol/L (136-145) Potassium Level 4.2 mmol/L (3.5-5.1) Chloride Level 112 mmol/L (98-107) Carbon Dioxide Level 21 mmol/L (21-32) Anion Gap 8 (6-14) Blood Urea Nitrogen 20 mg/dL (7-20) Creatinine 1.5 mg/dL (0.6-1.0) Estimated GFR (Cockcroft-Gault) 40.5 Glucose Level 127 mg/dL (70-99) Calcium Level 8.6 mg/dL (8.5-10.1) Phosphorus Level 2.8 mg/dL (2.6-4.7) Magnesium Level 1.9 mg/dL (1.8-2.4) Albumin 2.6 g/dL (3.4-5.0) Thyroid Stimulating Hormone (TSH) 0.738 uIU/mL (0.358-3.74) Free Thyroxine 1.27 ng/dL (0.76-1.46) Test 07/31/16 07:41 07/31/16 11:14 Glucose (Fingerstick) 117 mg/dL (70-99) 118 mg/dL (70-99) Laboratory Tests Test 07/30/16 16:29 07/30/16 20:52 07/31/16 05:30 07/31/16 07:41 Glucose (Fingerstick) 150 mg/dL (70-99) 156 mg/dL (70-99) 117 mg/dL (70-99) White Blood Count 7.4 x10^3/uL (4.0-11.0) Red Blood Count 3.20 x10^6/uL (3.50-5.40) Hemoglobin 9.0 g/dL (12.0-15.5) Hematocrit 28.5 % (36.0-47.0) Mean Corpuscular Volume 89 fL (79-100) Mean Corpuscular Hemoglobin 28 pg (25-35) Mean Corpuscular Hemoglobin Concent 32 g/dL (31-37) Red Cell Distribution Width 14.5 % (11.5-14.5) Platelet Count 186 x10^3/uL (140-400) Neutrophils (%) (Auto) 64 % (31-73) Lymphocytes (%) (Auto) 21 % (24-48) Monocytes (%) (Auto) 13 % (0-9) Eosinophils (%) (Auto) 1 % (0-3) Basophils (%) (Auto) 1 % (0-3) Neutrophils # (Auto) 4.7 x10^3uL (1.8-7.7) Lymphocytes # (Auto) 1.5 x10^3/uL (1.0-4.8) Monocytes # (Auto) 1.0 x10^3/uL (0.0-1.1) Eosinophils # (Auto) 0.1 x10^3/uL (0.0-0.7) Basophils # (Auto) 0.1 x10^3/uL (0.0-0.2) Sodium Level 141 mmol/L (136-145) Potassium Level 4.2 mmol/L (3.5-5.1) Chloride Level 112 mmol/L (98-107) Carbon Dioxide Level 21 mmol/L (21-32) Anion Gap 8 (6-14) Blood Urea Nitrogen 20 mg/dL (7-20) Creatinine 1.5 mg/dL (0.6-1.0) Estimated GFR (Cockcroft-Gault) 40.5 Glucose Level 127 mg/dL (70-99) Calcium Level 8.6 mg/dL (8.5-10.1) Phosphorus Level 2.8 mg/dL (2.6-4.7) Magnesium Level 1.9 mg/dL (1.8-2.4) Albumin 2.6 g/dL (3.4-5.0) Thyroid Stimulating Hormone (TSH) 0.738 uIU/mL (0.358-3.74) Free Thyroxine 1.27 ng/dL (0.76-1.46) Test 07/31/16 11:14 Glucose (Fingerstick) 118 mg/dL (70-99) Images Images CT head: The calvarium appears unremarkable. The visualized paranasal sinuses appear normal. There is some diminished aeration of mastoid air cells likely incidental. There is no subdural or epidural hematoma. Ventricles and sulci are normal given the patient's age. No mass or midline shift is seen. There is no hemorrhage. No acute finding is apparent. IMPRESSION: No acute or significant finding seen on noncontrast CT images of the head. Assessment/Plan Assessment/Plan Impression: Metabolic encephalopathy, dehydration, failure to thrive. She is much better by description now than she was earlier this morning No evidence of acute stroke I suspect prior dementia although the daughter says the patient is usually lucid. Recommendations: Additional laboratory studies ordered Supportive care Discussed with patient's daughter. Thank you for letting me help with the patient's care. MADIHA LEW MD July 31, 2016 12:18
[2016-07-31 14:30] VITALS: BP 146/71
[2016-07-31 19:00] VITALS: BP 148/55
[2016-07-31] MEDS: INSULIN DETEMIR 300 UNITS/3 ML INSULN.PEN. SQ SCH (21:47)
[2016-07-31 23:00] VITALS: BP 136/66
[2016-08-01 03:00] VITALS: BP 180/72
[2016-08-01] MEDS: METOCLOPRAMIDE HCL 10 MG/10 ML SOLUTION. PO SCH ×5 (06:26→21:34)
[2016-08-01 07:00] VITALS: BP_SYST 128; BP_SYST 131; BP_DIAS 62; BP_DIAS 68
[2016-08-01] MEDS: INSULIN ASPART 300 UNITS/3 ML INSULN.PEN SQ SCH ×3 (07:30→16:31)
[2016-08-01] MEDS: ISOSORBIDE MONONITRATE ER 30 MG TAB.ER.24H PO SCH (08:32)
[2016-08-01] MEDS: FERROUS SULFATE 325 MG TABLET. PO SCH (08:32)
[2016-08-01] MEDS: amLODIPine BESYLATE 5 MG TABLET PO SCH (08:33)
[2016-08-01] MEDS: MUPIROCIN 2 % NASAL OINTMENT 22GM TUBE. NS SCH ×2 (08:38→21:33)
[2016-08-01] MEDS: MICONAZOLE NITRATE 2% TOPICAL CREAM 28GM TUBE. TP SCH (08:39)
[2016-08-01] MEDS: METOPROLOL TART IMMED RELEASE 50 MG TABLET. PO SCH ×2 (08:39→21:00)
[2016-08-01 08:46] LABS: BASO # 0.1 x10^3/uL (0.0-0.2); BASO % 1 % (0-3); EOS % 2 % (0-3); HEMATOCRIT 28.2 % (36.0-47.0); HEMOGLOBIN 9.3 g/dL (12.0-15.5); LYMPH # 2.1 x10^3/uL (1.0-4.8); LYMPH % 30 % (24-48); MEAN CORPUSCULAR HEMOGLOBIN 29 pg (25-35); MEAN CORPUSCULAR HGB CONC 33 g/dL (31-37); MEAN CORPUSCULAR VOLUME 87 fL (79-100); MONO % 16 % (0-9); NEUT % 52 % (31-73); PLATELET COUNT 186 x10^3/uL (140-400); RED BLOOD COUNT 3.24 x10^6/uL (3.50-5.40); RED CELL DISTRIBUTION WIDTH 14.5 % (11.5-14.5); WHITE BLOOD COUNT 6.9 x10^3/uL (4.0-11.0)
--- NOTE | 2016-08-01 09:52 | PDOC ---
SUBJECTIVE ROS CKD III DOign OK overall , no complaints OBJECTIVE Vital Signs Vital Signs Date Time Temp Pulse Resp B/P (MAP) Pulse Ox O2 Delivery O2 Flow Rate FiO2 08/01/16 08:39 86 131/68 08/01/16 07:00 97.8 20 93 Room Air 97.8 I & 0 Intake and Output 08/01/16 06:59 Intake Total 1220 ml Output Total 1700 ml Balance -480 ml Intake Oral 520 ml IV Total 700 ml Output Urine Total 1700 ml PHYSICAL EXAM Physical Exam GEN: Awake, Oriented x 0, In no distress; flat affect EYES: Vision Unchanged, Conjunctiva Normal EN: No EN Drainage, Mucous Membranes moist, NECK: no JVD, no JVP, Supple, no Thyromegaly CVS: S1S2, ? Murmur, No Gallop, No Rub,no Edema RESP: no Rales, no Rhonchi,no Acc. Muscle Use GI: BS + ve, NO Bruit, Non Tender, Non Distended - obese : no CVA tenderness, no Suprapubic Tenderness DIAGNOSIS/ASSESSMENT Assessment & Plan Anorexia - may have contributed to vol depletion too. - encouraged PO intake CKD III in 2013 with GFR 44 calc. presumed due to DM/ HTnisve /NS - creat is back close to previous baseline; cehck ing 24-hr Urine for CrCl Anemia: EPO as ordered HTN: Current BP meds reviewed. See orders for changes. ? Vol depeltion - resolved, encouraged PO fluid intake OK to D/c back to NH from renal standpoint after 24-hr Urine is doen. COMMENT/RELEVANT DATA Meds Current Medications Medications (Trade) Dose Ordered Sig/Mateo Start Time Stop Time Status Last Admin Dose Admin Acetaminophen (Tylenol) 650 mg PRN Q6HRS PRN 07/27/16 18:15 Acetaminophen/ Hydrocodone Bitart (Lortab 7.5/325) 1 tab PRN Q6HRS PRN 07/27/16 18:00 07/31/16 04:17 1 TAB Amlodipine Besylate (Norvasc) 5 mg DAILY 07/28/16 09:00 08/01/16 08:33 5 MG Calcium Carbonate/ Glycine (Oscal) 1,000 mg PRN Q4HRS PRN 07/27/16 18:15 Cefpodoxime Proxetil (Vantin) 200 mg BID 08/01/16 21:00 Ceftriaxone Sodium 1 gm/ Sodium Chloride 50 ml @ 100 mls/hr Q24H 07/31/16 08:15 Cancel Cetirizine HCl (Zyrtec) 10 mg DAILY 07/28/16 09:00 07/29/16 10:20 DC 07/29/16 08:36 10 MG Clonidine HCl (Catapres Tts-2) 1 patch We 07/29/16 09:00 07/29/16 08:58 1 PATCH Darbepoetin Deep (Aranesp) 60 mcg WEEKLYHS 07/28/16 21:00 07/28/16 21:13 60 MCG Diphenhydramine HCl (Benadryl) 25 mg PRN Q6HRS PRN 07/28/16 09:00 Divalproex Sodium (Depakote Sprinkles) 125 mg HS 07/27/16 21:00 07/31/16 04:15 125 MG Ferrous Sulfate (Feosol) 325 mg DAILY 07/28/16 09:00 08/01/16 08:32 325 MG Furosemide (Lasix) 20 mg 1X ONCE 07/31/16 09:45 07/31/16 09:46 DC 07/31/16 10:37 20 MG Hydralazine HCl (Apresoline) 100 mg [id number] 07/28/16 19:00 08/01/16 03:00 100 MG Insulin Aspart (Novolog) 0-8 BIDBFRMEAL 07/28/16 09:00 Insulin Detemir (Levemir) 10 units QHS 07/29/16 21:00 07/31/16 21:47 10 UNITS Isosorbide Mononitrate (Imdur) 90 mg DAILY 07/31/16 09:00 08/01/16 08:32 90 MG Magnesium Sulfate/ Dextrose 50 ml @ 25 mls/hr PRN DAILY PRN 07/27/16 15:00 Metoclopramide HCl (Reglan) 5 mg QIDACHS 07/27/16 21:00 08/01/16 08:32 5 MG Metoprolol Tartrate (Lopressor) 100 mg BID 07/27/16 21:00 08/01/16 08:39 100 MG Miconazole Nitrate (Monistat-Derm) 1 hu DAILY 07/28/16 09:00 08/01/16 08:39 1 HU Mirtazapine (Remeron) 15 mg QHS 07/27/16 21:00 07/30/16 09:57 DC 07/29/16 21:13 15 MG Montelukast Sodium (Singulair) 10 mg HS 07/27/16 21:00 07/31/16 04:15 10 MG Mupirocin (Bactroban) 1 hu BID 07/28/16 10:00 08/01/16 08:38 1 HU Non-Formulary Medication 1 mg PRN 07/27/16 18:15 UNV Ondansetron HCl (Zofran) 4 mg PRN Q8HRS PRN 07/27/16 12:45 07/28/16 12:44 DC Senna/Docusate Sodium (Senna Plus) 1 tab PRN DAILY PRN 07/27/16 18:15 Sennosides (Senna) 8.6 mg PRN DAILY PRN 07/27/16 18:15 07/28/16 09:01 DC Sodium Chloride 1,000 ml @ 125 mls/hr Q8H 07/28/16 09:30 07/31/16 10:06 DC 07/31/16 04:19 125 MLS/HR Lab Laboratory Tests Test 07/31/16 11:14 07/31/16 16:41 08/01/16 07:05 08/01/16 08:15 Glucose (Fingerstick) 118 mg/dL (70-99) 134 mg/dL (70-99) 126 mg/dL (70-99) White Blood Count 6.9 x10^3/uL (4.0-11.0) Red Blood Count 3.24 x10^6/uL (3.50-5.40) Hemoglobin 9.3 g/dL (12.0-15.5) Hematocrit 28.2 % (36.0-47.0) Mean Corpuscular Volume 87 fL (79-100) Mean Corpuscular Hemoglobin 29 pg (25-35) Mean Corpuscular Hemoglobin Concent 33 g/dL (31-37) Red Cell Distribution Width 14.5 % (11.5-14.5) Platelet Count 186 x10^3/uL (140-400) Neutrophils (%) (Auto) 52 % (31-73) Lymphocytes (%) (Auto) 30 % (24-48) Monocytes (%) (Auto) 16 % (0-9) Eosinophils (%) (Auto) 2 % (0-3) Basophils (%) (Auto) 1 % (0-3) Neutrophils # (Auto) 3.6 x10^3uL (1.8-7.7) Lymphocytes # (Auto) 2.1 x10^3/uL (1.0-4.8) Monocytes # (Auto) 1.1 x10^3/uL (0.0-1.1) Eosinophils # (Auto) 0.1 x10^3/uL (0.0-0.7) Basophils # (Auto) 0.1 x10^3/uL (0.0-0.2) Magnesium Level 1.8 mg/dL (1.8-2.4) DUGLAS HAN MD August 01, 2016 09:52
[2016-08-01 10:47] VITALS: BP 149/66
--- NOTE | 2016-08-01 10:48 | PDOC ---
PROGRESS NOTES Subjective Subjective no complaints Objective Objective Vital Signs Date Time Temp Pulse Resp B/P (MAP) Pulse Ox O2 Delivery O2 Flow Rate FiO2 08/01/16 08:39 86 131/68 08/01/16 07:00 97.8 20 93 Room Air 97.8 Intake and Output 08/01/16 07:00 Intake Total 1220 ml Output Total 1700 ml Balance -480 ml Intake Oral 520 ml IV Total 700 ml Output Urine Total 1700 ml Physical Exam Abdomen: Normal bowel sounds, Soft Heart: Regular rate, Normal S1 General: No acute distress HEENT: Atraumatic Lungs: Normal air movement MUSCULOSKELETAL: No deformity Neck: No thyromegaly Psych/Mental Status: Mood NL Skin: No significant lesion Diagnosis Problem List Problems Medical Problems: (1) Acute renal failure Status: Acute Assessment Assessment IMPRESSION: 1. acute renal failure KULWINDER, VMN with underlying CKD III 2. acute metabolic encephalopathy 3. UTI no sepsis 4. anemia chronic disease renal/fe 5. elevated uric acid 6. DM II with nephropathy 7. CKD III hypertension/diabetes 8. hypertension 9. diarrhea 10. HTN PLAN: 24 hour urine collection in progress. E Coli uti on Rocephin. no labs today will check labs in am Problems: Plan Plan of Care Problems Medical Problems: (1) Acute renal failure Status: Acute Comment Review of Relevant I have reviewed the following items heidi (where applicable) has been applied. Labs Laboratory Tests Test 07/31/16 11:14 07/31/16 16:41 08/01/16 07:05 08/01/16 08:15 Glucose (Fingerstick) 118 mg/dL (70-99) 134 mg/dL (70-99) 126 mg/dL (70-99) White Blood Count 6.9 x10^3/uL (4.0-11.0) Red Blood Count 3.24 x10^6/uL (3.50-5.40) Hemoglobin 9.3 g/dL (12.0-15.5) Hematocrit 28.2 % (36.0-47.0) Mean Corpuscular Volume 87 fL (79-100) Mean Corpuscular Hemoglobin 29 pg (25-35) Mean Corpuscular Hemoglobin Concent 33 g/dL (31-37) Red Cell Distribution Width 14.5 % (11.5-14.5) Platelet Count 186 x10^3/uL (140-400) Neutrophils (%) (Auto) 52 % (31-73) Lymphocytes (%) (Auto) 30 % (24-48) Monocytes (%) (Auto) 16 % (0-9) Eosinophils (%) (Auto) 2 % (0-3) Basophils (%) (Auto) 1 % (0-3) Neutrophils # (Auto) 3.6 x10^3uL (1.8-7.7) Lymphocytes # (Auto) 2.1 x10^3/uL (1.0-4.8) Monocytes # (Auto) 1.1 x10^3/uL (0.0-1.1) Eosinophils # (Auto) 0.1 x10^3/uL (0.0-0.7) Basophils # (Auto) 0.1 x10^3/uL (0.0-0.2) Magnesium Level 1.8 mg/dL (1.8-2.4) Test 08/01/16 10:38 Glucose (Fingerstick) 162 mg/dL (70-99) Microbiology 07/27/16 Urine Culture - Final, Complete 07/27/16 Urine Culture Result 1 (AFSHIN) - Final, Complete 07/27/16 Urine Culture Result 2 (AFSHIN) - Final, Complete 07/27/16 Antimicrobic Susceptibility - Final, Complete Medications Current Medications Cefpodoxime Proxetil (Vantin) 200 mg BID PO ; Start 08/01/16 at 21:00 Vitals/I & O Vital Sign - Last 24 Hours 07/31/16 07/31/16 07/31/16 07/31/16 11:10 12:31 14:30 17:35 Temp 101.3 97.9 101.3 97.9 Pulse 89 89 100 100 Resp 18 18 B/P (MAP) 166/69 (101) 166/69 146/71 (96) 146/71 Pulse Ox 95 96 O2 Delivery Room Air Room Air 07/31/16 07/31/16 07/31/16 07/31/16 19:00 20:00 21:00 23:00 Temp 98.8 99.1 98.8 99.1 Pulse 95 95 89 Resp 18 18 B/P (MAP) 148/55 (86) 148/55 136/66 (89) Pulse Ox 95 96 O2 Delivery Room Air Room Air Room Air 08/01/16 08/01/16 08/01/16 08/01/16 03:00 03:00 06:00 07:00 Temp 97.5 98.4 97.5 98.4 Pulse 89 87 84 68 Resp 18 20 B/P (MAP) 136/66 180/72 (108) 148/78 128/62 (84) Pulse Ox 97 98 O2 Delivery Room Air Room Air 08/01/16 08/01/16 08/01/16 08/01/16 07:00 08:32 08:33 08:39 Temp 97.8 97.8 Pulse 86 86 86 86 Resp 20 B/P (MAP) 131/68 (89) 131/68 131/68 131/68 Pulse Ox 93 O2 Delivery Room Air Intake and Output 07/31/16 07/31/16 08/01/16 15:00 23:00 07:00 Intake Total 180 ml 940 ml 100 ml Output Total 550 ml 1150 ml Balance -370 ml 940 ml -1050 ml VADIM KUO MD August 01, 2016 10:48
--- NOTE | 2016-08-01 11:44 | PDOC ---
PROGRESS NOTES Assessment Problems Medical Problems: (1) Acute renal failure Status: Acute Metabolic encephalopathy, dehydration, failure to thrive, renal failure, UTI. Note ESR 85, probably reflects renal failure, no pain to suggest temporal arteritis No evidence of acute stroke I suspect prior dementia although the daughter says the patient is usually lucid. Plan Await additional laboratory studies ordered Supportive care, treat medical diseases Subjective no complaints Objective Vital Signs Date Time Temp Pulse Resp B/P (MAP) Pulse Ox O2 Delivery O2 Flow Rate FiO2 08/01/16 10:47 97.8 88 20 149/66 (93) 94 Room Air 97.8 Intake and Output 08/01/16 07:00 Intake Total 1220 ml Output Total 1700 ml Balance -480 ml Intake Oral 520 ml IV Total 700 ml Output Urine Total 1700 ml PHYSICAL EXAM Alert. Oriented to Month and person, thinks she's at [facility]. PERRL. EOMI. CN: no focal findings. Muscle tone: normal. Muscle strength: 4/5 DTR: 1+ Bilateral grasp reflexes Plantar reflex: flexor Gait: not examined in bed. Sensory exam: no abnormal findings. No cerebellar signs elicited. Review of Relevant I have reviewed the following items heidi (where applicable) has been applied. Labs Laboratory Tests Test 07/30/16 16:29 07/30/16 20:52 07/31/16 05:30 07/31/16 07:41 Glucose (Fingerstick) 150 mg/dL (70-99) 156 mg/dL (70-99) 117 mg/dL (70-99) White Blood Count 7.4 x10^3/uL (4.0-11.0) Red Blood Count 3.20 x10^6/uL (3.50-5.40) Hemoglobin 9.0 g/dL (12.0-15.5) Hematocrit 28.5 % (36.0-47.0) Mean Corpuscular Volume 89 fL (79-100) Mean Corpuscular Hemoglobin 28 pg (25-35) Mean Corpuscular Hemoglobin Concent 32 g/dL (31-37) Red Cell Distribution Width 14.5 % (11.5-14.5) Platelet Count 186 x10^3/uL (140-400) Neutrophils (%) (Auto) 64 % (31-73) Lymphocytes (%) (Auto) 21 % (24-48) Monocytes (%) (Auto) 13 % (0-9) Eosinophils (%) (Auto) 1 % (0-3) Basophils (%) (Auto) 1 % (0-3) Neutrophils # (Auto) 4.7 x10^3uL (1.8-7.7) Lymphocytes # (Auto) 1.5 x10^3/uL (1.0-4.8) Monocytes # (Auto) 1.0 x10^3/uL (0.0-1.1) Eosinophils # (Auto) 0.1 x10^3/uL (0.0-0.7) Basophils # (Auto) 0.1 x10^3/uL (0.0-0.2) Sodium Level 141 mmol/L (136-145) Potassium Level 4.2 mmol/L (3.5-5.1) Chloride Level 112 mmol/L (98-107) Carbon Dioxide Level 21 mmol/L (21-32) Anion Gap 8 (6-14) Blood Urea Nitrogen 20 mg/dL (7-20) Creatinine 1.5 mg/dL (0.6-1.0) Estimated GFR (Cockcroft-Gault) 40.5 Glucose Level 127 mg/dL (70-99) Calcium Level 8.6 mg/dL (8.5-10.1) Phosphorus Level 2.8 mg/dL (2.6-4.7) Magnesium Level 1.9 mg/dL (1.8-2.4) Albumin 2.6 g/dL (3.4-5.0) Thyroid Stimulating Hormone (TSH) 0.738 uIU/mL (0.358-3.74) Free Thyroxine 1.27 ng/dL (0.76-1.46) Test 07/31/16 11:14 07/31/16 16:41 08/01/16 05:00 08/01/16 07:05 Glucose (Fingerstick) 118 mg/dL (70-99) 134 mg/dL (70-99) 126 mg/dL (70-99) Erythrocyte Sedimentation Rate 85 (0-25) Test 08/01/16 08:15 08/01/16 10:38 White Blood Count 6.9 x10^3/uL (4.0-11.0) Red Blood Count 3.24 x10^6/uL (3.50-5.40) Hemoglobin 9.3 g/dL (12.0-15.5) Hematocrit 28.2 % (36.0-47.0) Mean Corpuscular Volume 87 fL (79-100) Mean Corpuscular Hemoglobin 29 pg (25-35) Mean Corpuscular Hemoglobin Concent 33 g/dL (31-37) Red Cell Distribution Width 14.5 % (11.5-14.5) Platelet Count 186 x10^3/uL (140-400) Neutrophils (%) (Auto) 52 % (31-73) Lymphocytes (%) (Auto) 30 % (24-48) Monocytes (%) (Auto) 16 % (0-9) Eosinophils (%) (Auto) 2 % (0-3) Basophils (%) (Auto) 1 % (0-3) Neutrophils # (Auto) 3.6 x10^3uL (1.8-7.7) Lymphocytes # (Auto) 2.1 x10^3/uL (1.0-4.8) Monocytes # (Auto) 1.1 x10^3/uL (0.0-1.1) Eosinophils # (Auto) 0.1 x10^3/uL (0.0-0.7) Basophils # (Auto) 0.1 x10^3/uL (0.0-0.2) Magnesium Level 1.8 mg/dL (1.8-2.4) Glucose (Fingerstick) 162 mg/dL (70-99) Laboratory Tests Test 07/31/16 16:41 08/01/16 05:00 08/01/16 07:05 08/01/16 08:15 Glucose (Fingerstick) 134 mg/dL (70-99) 126 mg/dL (70-99) Erythrocyte Sedimentation Rate 85 (0-25) White Blood Count 6.9 x10^3/uL (4.0-11.0) Red Blood Count 3.24 x10^6/uL (3.50-5.40) Hemoglobin 9.3 g/dL (12.0-15.5) Hematocrit 28.2 % (36.0-47.0) Mean Corpuscular Volume 87 fL (79-100) Mean Corpuscular Hemoglobin 29 pg (25-35) Mean Corpuscular Hemoglobin Concent 33 g/dL (31-37) Red Cell Distribution Width 14.5 % (11.5-14.5) Platelet Count 186 x10^3/uL (140-400) Neutrophils (%) (Auto) 52 % (31-73) Lymphocytes (%) (Auto) 30 % (24-48) Monocytes (%) (Auto) 16 % (0-9) Eosinophils (%) (Auto) 2 % (0-3) Basophils (%) (Auto) 1 % (0-3) Neutrophils # (Auto) 3.6 x10^3uL (1.8-7.7) Lymphocytes # (Auto) 2.1 x10^3/uL (1.0-4.8) Monocytes # (Auto) 1.1 x10^3/uL (0.0-1.1) Eosinophils # (Auto) 0.1 x10^3/uL (0.0-0.7) Basophils # (Auto) 0.1 x10^3/uL (0.0-0.2) Magnesium Level 1.8 mg/dL (1.8-2.4) Test 08/01/16 10:38 Glucose (Fingerstick) 162 mg/dL (70-99) Microbiology 07/27/16 Urine Culture - Final, Complete 07/27/16 Urine Culture Result 1 (AFSHIN) - Final, Complete 07/27/16 Urine Culture Result 2 (AFSHIN) - Final, Complete 07/27/16 Antimicrobic Susceptibility - Final, Complete Medications Current Medications Sodium Chloride 500 ml @ 500 mls/hr 1X ONCE IV Last administered on 07/27/16 12:30; Start 07/27/16 at 12:30; Stop 07/27/16 at 13:29; Status DC Ondansetron HCl (Zofran) 4 mg PRN Q8HRS PRN IV NAUSEA/VOMITING; Start 07/27/16 at 12:45; Stop 07/28/16 at 12:44; Status DC Acetaminophen (Tylenol) 650 mg PRN Q4HRS PRN PO FEVER; Start 07/27/16 at 12:45; Stop 07/28/16 at 12:44; Status DC Sodium Chloride 1,000 ml @ 75 mls/hr 1X ONCE IV Last administered on 14:43; Start 07/27/16 at 12:45; Stop 07/28/16 at 02:04; Status DC Magnesium Sulfate/ Dextrose 50 ml @ 25 mls/hr PRN DAILY PRN IV for Mag < 1.7 on am labs; Start 07/27/16 at 15:00 Acetaminophen/ Hydrocodone Bitart (Lortab 7.5/325) 1 tab PRN Q6HRS PRN PO PAIN Last administered on 07/31/16 04:17; Start 07/27/16 at 18:00 Acetaminophen (Tylenol) 650 mg PRN Q6HRS PRN PO PAIN; Start 07/27/16 at 18:15 Amlodipine Besylate (Norvasc) 5 mg DAILY PO Last administered on 08/01/16 08:33 ; Start 07/28/16 at 09:00 Calcium Carbonate/ Glycine (Oscal) 1,000 mg PRN Q4HRS PRN PO INDIGESTION; Start 07/27/16 at 18:15 Cetirizine HCl (Zyrtec) 10 mg DAILY PO Last administered on 07/29/16 08:36; Start 07/28/16 at 09:00; Stop 07/29/16 at 10:20; Status DC Clonidine HCl (Catapres Tts-2) 1 patch WEEKLY TD ; Start 07/28/16 at 09:00; Stop 07/28/16 at 09:00; Status DC Diphenhydramine HCl (Benadryl) 25 mg Q6HRS PO Last administered on 07/28/16 05: 48; Start 07/28/16 at 00:00; Stop 07/28/16 at 09:01; Status DC Divalproex Sodium (Depakote Sprinkles) 125 mg HS PO Last administered on 04:15; Start 07/27/16 at 21:00 Ferrous Sulfate (Feosol) 325 mg DAILY PO Last administered on 08/01/16 08:32; Start 07/28/16 at 09:00 Isosorbide Mononitrate (Imdur) 60 mg DAILY PO ; Start 07/28/16 at 09:00; Stop 07/28/16 at 09:00; Status DC Metoclopramide HCl (Reglan) 5 mg QIDACHS PO Last administered on 08/01/16 08:32 ; Start 07/27/16 at 21:00 Mirtazapine (Remeron) 15 mg QHS PO Last administered on 07/29/16 21:13; Start 07/27/16 at 21:00; Stop 07/30/16 at 09:57; Status DC Montelukast Sodium (Singulair) 10 mg HS PO Last administered on 07/31/16 04:15 ; Start 07/27/16 at 21:00 Sennosides (Senna) 8.6 mg PRN DAILY PRN PO CONSTIPATION; Start 07/27/16 at 18:15 ; Stop 07/28/16 at 09:01; Status DC Senna/Docusate Sodium (Senna Plus) 1 tab PRN DAILY PRN PO CONSTIPATION; Start 07/27/16 at 18:15 Non-Formulary Medication 1 mg PRN IM ; Start 07/27/16 at 18:15; Status UNV Hydralazine HCl (Apresoline) 100 mg [id number] PO Last administered on 08/01/16 03:00; Start 07/28/16 at 19:00 Metoprolol Tartrate (Lopressor) 100 mg BID PO Last administered on 08/01/16 08: 39; Start 07/27/16 at 21:00 Miconazole Nitrate (Monistat-Derm) 1 hu DAILY TP Last administered on 08:39; Start 07/28/16 at 09:00 Insulin Detemir (Levemir) 50 units QHS SQ Last administered on 07/27/16 21:06; Start 07/27/16 at 21:00; Stop 07/28/16 at 09:35; Status DC Clonidine HCl (Catapres Tts-2) 1 patch We TD Last administered on 07/29/16 08: 58; Start 07/29/16 at 09:00 Isosorbide Mononitrate (Imdur) 60 mg DAILY PO Last administered on 07/30/16 07: 44; Start 07/28/16 at 09:00; Stop 07/31/16 at 08:58; Status DC Diphenhydramine HCl (Benadryl) 25 mg PRN Q6HRS PRN PO NAUSEA; Start 07/28/16 at 09:00 Insulin Aspart (Novolog) 0-8 BIDBFRMEAL SQ ; Start 07/28/16 at 09:00 Mupirocin (Bactroban) 1 hu BID NS Last administered on 08/01/16 08:38; Start 07/28/16 at 10:00 Ceftriaxone Sodium 1 gm/ Sodium Chloride 50 ml @ 100 mls/hr Q24H IV Last administered on 07/31/16 09:09; Start 07/28/16 at 10:00; Stop 08/01/16 at 19:00 Insulin Detemir (Levemir) 40 units QHS SQ Last administered on 07/28/16 21:23; Start 07/28/16 at 21:00; Stop 07/29/16 at 08:59; Status DC Sodium Chloride 1,000 ml @ 125 mls/hr Q8H IV Last administered on 07/31/16 04: 19; Start 07/28/16 at 09:30; Stop 07/31/16 at 10:06; Status DC Darbepoetin Deep (Aranesp) 60 mcg WEEKLYHS SQ Last administered on 07/28/16 21: 13; Start 07/28/16 at 21:00 Insulin Detemir (Levemir) 10 units QHS SQ Last administered on 07/31/16 21:47; Start 07/29/16 at 21:00 Cefpodoxime Proxetil (Vantin) 200 mg BID PO Last administered on 07/31/16 04:14 ; Start 07/30/16 at 21:00; Stop 07/31/16 at 08:08; Status DC Ceftriaxone Sodium 1 gm/ Sodium Chloride 50 ml @ 100 mls/hr Q24H IV ; Start 07/31/16 at 08:15; Stop 07/31/16 at 08:15; Status DC Ceftriaxone Sodium 1 gm/ Sodium Chloride 50 ml @ 100 mls/hr Q24H IV ; Start 07/31/16 at 08:15; Status Cancel Isosorbide Mononitrate (Imdur) 90 mg DAILY PO Last administered on 08/01/16 08: 32; Start 07/31/16 at 09:00 Furosemide (Lasix) 20 mg 1X ONCE PO Last administered on 07/31/16 10:37; Start 07/31/16 at 09:45; Stop 07/31/16 at 09:46; Status DC Cefpodoxime Proxetil (Vantin) 200 mg BID PO ; Start 08/01/16 at 21:00 Active Scripts Active Reported Humalog (Insulin Lispro) 100 Unit/1 Ml Cartridge 100 Unit SQ HS Inject as per sliding scale; if 150-200= 1 unit; 201-250=2units; 251-300=3units; 301-350=4units; 351-400=5units. Notify MD if FSBG is greater than 400 or less than 80. Humalog (Insulin Lispro) 100 Unit/1 Ml Cartridge 25 Unit SQ BID Lantus Solostar (Insulin Glargine,Hum.rec.anlog) 100 Unit/1 Ml Insuln.pen 67 Unit SQ QHS Montelukast Sodium Tablet (Montelukast Sodium) 10 Mg Tablet 10 Mg PO HS Senokot-S Tablet (Sennosides/Docusate Sodium) 1 Each Tablet 1 Tab PO DAILY PRN Remeron (Mirtazapine) 15 Mg Tablet 1 Tab PO QHS Metoclopramide Hcl 10 Mg/10 Ml Solution 10 Mg PO QIDACHS Glucose Gel (Dextrose) 38 Gm Gel..gram. 38 Gm PO Glucagon Emergency Kit (Glucagon,Human Recombinant) 1 Mg Kit 1 Mg IM PRN Ferrous Sulfate 325 Mg Tablet 1 Tab PO DAILY Depakote Sprinkle (Divalproex Sodium) 125 Mg Cap.sprink 125 Mg PO HS Clonidine Tts-2 (Clonidine) 1 Each Patch.tdwk 1 Patch TD WEEKLY Calcium Carbonate 500 Mg Tablet 1,000 Mg PO Q4HRS PRN Aldactone (Spironolactone) 25 Mg Tablet 1 Tab PO BID Aloe [place] (Miconazole Nitrate) 56 Gm Oint...g. 56 Gm TP DAILY Furosemide 40 Mg Tablet 1 Tab PO DAILY Tylenol (Acetaminophen) 325 Mg Tablet 2 Tab PO Q6HRS PRN Senokot (Sennosides) 8.6 Mg Tablet 1 Tab PO DAILY PRN Imdur (Isosorbide Mononitrate) 60 Mg Tab.er.24h 1 Tab PO DAILY Cetirizine Hcl 10 Mg Tablet 1 Tab PO DAILY Metoprolol Tartrate 100 Mg Tablet 100 Mg PO BID Nitrostat (Nitroglycerin) 0.4 Mg Tab.subl 0.4 Mg SL Losartan Potassium 100 Mg Tablet 100 Mg PO HS Hydralazine Hcl 100 Mg Tablet 100 Mg PO [id number] Amlodipine Besylate 10 Mg Tablet 5 Mg PO DAILY Benadryl (Diphenhydramine Hcl) 25 Mg Capsule 25 Mg PO Q6HRS Vitals/I & O Vital Sign - Last 24 Hours 07/31/16 07/31/16 07/31/16 07/31/16 12:31 14:30 17:35 19:00 Temp 97.9 98.8 97.9 98.8 Pulse 89 100 100 95 Resp 18 18 B/P (MAP) 166/69 146/71 (96) 146/71 148/55 (86) Pulse Ox 96 95 O2 Delivery Room Air Room Air 07/31/16 07/31/16 07/31/16 08/01/16 20:00 21:00 23:00 03:00 Temp 99.1 99.1 Pulse 95 89 89 Resp 18 B/P (MAP) 148/55 136/66 (89) 136/66 Pulse Ox 96 O2 Delivery Room Air Room Air 08/01/16 08/01/16 08/01/16 08/01/16 03:00 06:00 07:00 07:00 Temp 97.5 98.4 97.8 97.5 98.4 97.8 Pulse 87 84 68 86 Resp 18 20 20 B/P (MAP) 180/72 (108) 148/78 128/62 (84) 131/68 (89) Pulse Ox 97 98 93 O2 Delivery Room Air Room Air Room Air 08/01/16 08/01/16 08/01/16 08/01/16 08:00 08:32 08:33 08:39 Pulse 86 86 86 B/P (MAP) 131/68 131/68 131/68 O2 Delivery Room Air 08/01/16 10:47 Temp 97.8 97.8 Pulse 88 Resp 20 B/P (MAP) 149/66 (93) Pulse Ox 94 O2 Delivery Room Air Intake and Output 07/31/16 07/31/16 08/01/16 15:00 23:00 07:00 Intake Total 180 ml 940 ml 100 ml Output Total 550 ml 1150 ml Balance -370 ml 940 ml -1050 ml MADIHA LEW MD August 01, 2016 11:44
[2016-08-01 11:51] LABS: ALBUMIN 2.6 g/dL (3.4-5.0); CALCIUM 8.8 mg/dL (8.5-10.1); CREATININE 1.4 mg/dL (0.6-1.0); GFR 43.9; PHOSPHORUS 2.7 mg/dL (2.6-4.7); POTASSIUM 4.1 mmol/L (3.5-5.1)
[2016-08-01 15:07] VITALS: BP 129/48
[2016-08-01 19:00] VITALS: BP 126/60
[2016-08-01] MEDS: MONTELUKAST SODIUM 10 MG TABLET. PO SCH (21:33)
[2016-08-01] MEDS: DIVALPROEX SPRINKLES 125 MG CAPSULE. PO SCH (21:34)
[2016-08-01] MEDS: CEFPODOXIME PROXETIL 100 MG TABLET. PO SCH (21:34)
[2016-08-01] MEDS: INSULIN DETEMIR 300 UNITS/3 ML INSULN.PEN. SQ SCH (21:45)
[2016-08-01 23:00] VITALS: BP 154/66
[2016-08-02 03:00] VITALS: BP 141/69
[2016-08-02 05:27] LABS: BASO # 0.1 x10^3/uL (0.0-0.2); BASO % 1 % (0-3); EOS % 2 % (0-3); HEMATOCRIT 28.9 % (36.0-47.0); HEMOGLOBIN 9.5 g/dL (12.0-15.5); LYMPH # 2.2 x10^3/uL (1.0-4.8); LYMPH % 34 % (24-48); MEAN CORPUSCULAR HEMOGLOBIN 28 pg (25-35); MEAN CORPUSCULAR HGB CONC 33 g/dL (31-37); MEAN CORPUSCULAR VOLUME 86 fL (79-100); MONO % 14 % (0-9); NEUT % 48 % (31-73); PLATELET COUNT 212 x10^3/uL (140-400); RED BLOOD COUNT 3.37 x10^6/uL (3.50-5.40); RED CELL DISTRIBUTION WIDTH 14.2 % (11.5-14.5); WHITE BLOOD COUNT 6.4 x10^3/uL (4.0-11.0)
[2016-08-02 05:47] LABS: ALBUMIN 2.7 g/dL (3.4-5.0); CREATININE 1.4 mg/dL (0.6-1.0); GFR 43.9; PHOSPHORUS 3.4 mg/dL (2.6-4.7); POTASSIUM 4.1 mmol/L (3.5-5.1)
[2016-08-02 07:00] VITALS: BP 159/48
[2016-08-02] MEDS: INSULIN ASPART 300 UNITS/3 ML INSULN.PEN SQ SCH (07:08)
[2016-08-02] MEDS: CEFPODOXIME PROXETIL 100 MG TABLET. PO SCH (08:35)
[2016-08-02] MEDS: METOCLOPRAMIDE HCL 10 MG/10 ML SOLUTION. PO SCH ×2 (08:35→12:41)
[2016-08-02] MEDS: amLODIPine BESYLATE 5 MG TABLET PO SCH (08:36)
[2016-08-02] MEDS: ISOSORBIDE MONONITRATE ER 30 MG TAB.ER.24H PO SCH (08:36)
[2016-08-02] MEDS: FERROUS SULFATE 325 MG TABLET. PO SCH (08:36)
[2016-08-02] MEDS: METOPROLOL TART IMMED RELEASE 50 MG TABLET. PO SCH (08:37)
[2016-08-02] MEDS: MUPIROCIN 2 % NASAL OINTMENT 22GM TUBE. NS SCH (09:00)
[2016-08-02] MEDS: MICONAZOLE NITRATE 2% TOPICAL CREAM 28GM TUBE. TP SCH (09:00)
--- NOTE | 2016-08-02 11:14 | PDOC ---
PROGRESS NOTES Subjective Subjective sleepy awakens easily ,says bella. Objective Objective Vital Signs Date Time Temp Pulse Resp B/P (MAP) Pulse Ox O2 Delivery O2 Flow Rate FiO2 08/02/16 08:37 78 159/48 08/02/16 08:10 Room Air 08/02/16 07:00 97.8 20 93 97.8 Intake and Output 08/02/16 07:00 Intake Total 370 ml Output Total 900 ml Balance -530 ml Intake Oral 370 ml Output Urine Total 900 ml Physical Exam Abdomen: Normal bowel sounds, Soft Heart: Regular rate, Normal S1 General: No acute distress HEENT: Atraumatic Lungs: Normal air movement MUSCULOSKELETAL: No deformity Neck: No thyromegaly Psych/Mental Status: Mood NL Skin: No significant lesion Diagnosis Problem List Problems Medical Problems: (1) Acute renal failure Status: Acute Assessment Assessment IMPRESSION: 1. acute renal failure KULWINDER, VMN with underlying CKD III 2. acute metabolic encephalopathy 3. UTI no sepsis 4. anemia chronic disease renal/fe 5. elevated uric acid 6. DM II with nephropathy 7. CKD III hypertension/diabetes 8. hypertension 9. diarrhea 10. HTN PLAN:d/c back to ID today , [facility] acute 24 hour urine collection done yesterday E Coli uti on po Vantin. d/c menjivar labs stable ,cr1.4 Problems: Plan Plan of Care Problems Medical Problems: (1) Acute renal failure Status: Acute Comment Review of Relevant I have reviewed the following items heidi (where applicable) has been applied. Labs Laboratory Tests Test 08/01/16 11:25 08/01/16 15:58 08/01/16 21:38 08/02/16 05:00 Sodium Level 139 mmol/L (136-145) 141 mmol/L (136-145) Potassium Level 4.1 mmol/L (3.5-5.1) 4.1 mmol/L (3.5-5.1) Chloride Level 108 mmol/L (98-107) 109 mmol/L (98-107) Carbon Dioxide Level 23 mmol/L (21-32) 22 mmol/L (21-32) Anion Gap 8 (6-14) 10 (6-14) Blood Urea Nitrogen 14 mg/dL (7-20) 13 mg/dL (7-20) Creatinine 1.4 mg/dL (0.6-1.0) 1.4 mg/dL (0.6-1.0) Estimated GFR (Cockcroft-Gault) 43.9 43.9 Glucose Level 170 mg/dL (70-99) 105 mg/dL (70-99) Calcium Level 8.8 mg/dL (8.5-10.1) 9.0 mg/dL (8.5-10.1) Phosphorus Level 2.7 mg/dL (2.6-4.7) 3.4 mg/dL (2.6-4.7) Albumin 2.6 g/dL (3.4-5.0) 2.7 g/dL (3.4-5.0) Glucose (Fingerstick) 115 mg/dL (70-99) 124 mg/dL (70-99) White Blood Count 6.4 x10^3/uL (4.0-11.0) Red Blood Count 3.37 x10^6/uL (3.50-5.40) Hemoglobin 9.5 g/dL (12.0-15.5) Hematocrit 28.9 % (36.0-47.0) Mean Corpuscular Volume 86 fL (79-100) Mean Corpuscular Hemoglobin 28 pg (25-35) Mean Corpuscular Hemoglobin Concent 33 g/dL (31-37) Red Cell Distribution Width 14.2 % (11.5-14.5) Platelet Count 212 x10^3/uL (140-400) Neutrophils (%) (Auto) 48 % (31-73) Lymphocytes (%) (Auto) 34 % (24-48) Monocytes (%) (Auto) 14 % (0-9) Eosinophils (%) (Auto) 2 % (0-3) Basophils (%) (Auto) 1 % (0-3) Neutrophils # (Auto) 3.1 x10^3uL (1.8-7.7) Lymphocytes # (Auto) 2.2 x10^3/uL (1.0-4.8) Monocytes # (Auto) 0.9 x10^3/uL (0.0-1.1) Eosinophils # (Auto) 0.1 x10^3/uL (0.0-0.7) Basophils # (Auto) 0.1 x10^3/uL (0.0-0.2) Test 08/02/16 07:02 08/02/16 10:39 Glucose (Fingerstick) 103 mg/dL (70-99) 145 mg/dL (70-99) Microbiology 07/27/16 Urine Culture - Final, Complete 07/27/16 Urine Culture Result 1 (AFSHIN) - Final, Complete 07/27/16 Urine Culture Result 2 (AFSHIN) - Final, Complete 07/27/16 Antimicrobic Susceptibility - Final, Complete Medications Current Medications Cefpodoxime Proxetil (Vantin) 200 mg BID PO Last administered on 08/02/16t 08:35 ; Start 08/01/16 at 21:00 Vitals/I & O Vital Sign - Last 24 Hours 08/01/16 08/01/16 08/01/16 08/01/16 12:15 15:07 17:57 19:00 Temp 97.8 98.8 97.8 98.8 Pulse 88 88 88 91 Resp 20 20 B/P (MAP) 149/66 129/48 (75) 129/48 126/60 (82) Pulse Ox 93 91 O2 Delivery Room Air Room Air 08/01/16 08/01/16 08/02/16 08/02/16 20:00 23:00 03:00 06:24 Temp 98.4 98.7 98.4 98.7 Pulse 91 92 90 Resp 20 20 B/P (MAP) 154/66 (95) 141/69 (93) 181/67 Pulse Ox 96 92 O2 Delivery Room Air Room Air Room Air 08/02/16 08/02/16 08/02/16 08/02/16 07:00 08:10 08:36 08:36 Temp 97.8 97.8 Pulse 78 78 78 Resp 20 B/P (MAP) 159/48 (85) 159/48 159/48 Pulse Ox 93 O2 Delivery Room Air Room Air 08/02/16 08:37 Pulse 78 B/P (MAP) 159/48 Intake and Output 08/01/16 08/01/16 08/02/16 15:00 23:00 07:00 Intake Total 250 ml 100 ml 20 ml Output Total 350 ml 550 ml Balance 250 ml -250 ml -530 ml VADIM KUO MD August 02, 2016 11:14
[2016-08-02 11:22] VITALS: BP 151/55
[2016-08-02 12:09] LABS: TOTAL SERUM CREATININE 1.18 mg/dL (0.57-1.00); TOTAL URINE CREATININE 68.6 mg/dL (Not Estab.)
[2016-08-02 12:42] VITALS: BP 151/55
[2016-08-03 09:49] LABS: FOLATE 11.92 ng/ml (3.2-20.0)
--- NOTE | 2016-08-06 14:56 | PDOC3 ---
IM DISCHARGE SUMMARY Date of Admission Date of Admission Date of Admission: July 27, 2016 at 12:20 Date of Discharge Date of Discharge 08/02/16 Primary Diagnosis Primary Diagnosis IMPRESSION: 1. acute renal failure KULWINDER, VMN with underlying CKD III 2. acute metabolic encephalopathy 3. UTI no sepsis 4. anemia chronic disease renal/fe 5. 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 DM II with nephropathy chronic insulin 7. CKD III hypertension/diabetes 8. hypertension 9. diarrhea AGE POA not sepsis 10. HTN 11. hyperlipidemia 12. GERD 13. chronic LBP 14. severe weakness and debility 15. severe PCL malnutrition -anorexia 16. OA generalized 17. thyroid nodule 1.6cm Problems: Consults Consults Carlton Duarte MD, Dr. Procedures Procedures None Labs Labs See EMR Brief hospital course Brief hospital course This 81 year old female who presented with acute renal failure , acute metabolic encephalopathy, and UTI was admitted. The following is a summary of her treatment: [facility]F nephrology consult Admit BUN 74 08/02 13 Cr 3.7 1.4 Na 139 141 K 4.9 4.1 uric acid 13.8 IVF in ED otherwise no IVF ?gout-start colcrys? Begin IVF NS 50cc/hr-increased to 125cc/hr 07/29 acute metabolic encephalopathy monitor improved 07/31-MS changes-worsened prior to hydrocodone this AM. Will check CT head w/o contrast, consult neurology Remeron stopped 07/29 zyrtec stopped 07/30 DM II with hypoglycemia appetite decreased BS 0400 43 Decrease Levemir to 40units daily continue SSI low intensity BS 127-162 prior to 0400, this AM 94 Diet changed to cardiac: not on ADA diet at [place]. BS 103-145 UTI no sepsis + nitrite, neg blood, + leukoesterase Begin Rocephin 1gm IV until urine CS results available h/o cefepime w/o reaction lactic acid 1.1 Ecoli sensitive to Rocephin Pharmacy changed to Vantin-changed back to Rocephin IV due to MS changes/not taking meds DC on oral antibiotic anemia h/o fe deficiency, on ferrous sulfate Fe 82, TIBC 239, Fe sat 34, Ferritin 155 Admit 10.3 08/02 9.5 severe weakness and debility PT OT severe PCL malnutrition monitor oral intake thyroid nodule check TSH T4-stable DVT/GI prophylaxis SCD/BHAVANI PPI LUE edema suspect IV infiltration check US LUE-negative For more details regarding further plans, please refer to the orders. She will be discharged to [facility]. Please see the discharge orders. Malignant hypertension- consult cardiology. still very sleepy.can not decrease catapres at this time. IV Rocephin. ? [place] depression.Prognosis is poor. see orders. The patient was seen and examined by me. Chart reviewed and plan of care formulated. Discussed with, reviewed and agree with WARDSPERSON's notes, plan of care and orders with modifications as necessary. For more details regarding further plans, please refer to the orders. For more details regarding the past history, family history, social history, surgical history and other details, please refer to History and Physical. Medications Medications reviewed and reconciled for discharge. Allergy Allergies Coded Allergies Type Severity Reaction Last Updated Verified Penicillins Allergy Intermediate "Throat itches and closes up" PER PT NO ALLERGY 07/28/16 Yes citalopram Allergy Intermediate Unknown 07/27/16 Yes I S O L A T I O N *CONTACT* Allergy Unknown 07/28/16 Yes aspirin Adverse Reaction Intermediate Nausea and Vomiting 07/27/16 Yes Follow up Admit to facility MD DISPOSITION: [facility] facility Comments Discharge Management - 35 minutes. For other details please refer to discharge instructions MARCUS HAWTHORNE APRN August 06, 2016 14:56
== END 2016-08-02 19:32 | DRG 682 ==
LOC: ER 11:44 → 5 NORTH 12:20 → 5 SOUTH 07-30 15:01
PROVIDERS: ADMIT Internal Medicine; ATTEND Internal Medicine
DX: N17.0 Acute kidney failure with tubular necrosis (principal); E43 Unspecified severe protein-calorie malnutrition; G93.41 Metabolic encephalopathy; N39.0 Urinary tract infection, site not specified; I13.0 Hypertensive heart and chronic kidney disease with heart failure and stage 1 through stage 4 chronic kidney disease, or unspecified chronic kidney disease; E11.22 Type 2 diabetes mellitus with diabetic chronic kidney disease; E11.41 Type 2 diabetes mellitus with diabetic mononeuropathy; E78.5 Hyperlipidemia, unspecified; F03.90 Unspecified dementia, unspecified severity, without behavioral disturbance, psychotic disturbance, mood disturbance, and anxiety; F32.9 Major depressive disorder, single episode, unspecified; I50.9 Heart failure, unspecified; E11.51 Type 2 diabetes mellitus with diabetic peripheral angiopathy without gangrene; E11.21 Type 2 diabetes mellitus with diabetic nephropathy; E86.0 Dehydration; G89.29 Other chronic pain; K21.9 Gastro-esophageal reflux disease without esophagitis; N18.3 Chronic kidney disease, stage 3 (moderate); E66.09 Other obesity due to excess calories; M19.90 Unspecified osteoarthritis, unspecified site; M54.5 Low back pain; E04.1 Nontoxic single thyroid nodule; R19.7 Diarrhea, unspecified; F41.9 Anxiety disorder, unspecified; R62.7 Adult failure to thrive; Z87.891 Personal history of nicotine dependence; Z87.01 Personal history of pneumonia (recurrent); Z68.38 Body mass index [BMI] 38.0-38.9, adult; Z88.6 Allergy status to analgesic agent; Z88.0 Allergy status to penicillin; Z88.8 Allergy status to other drugs, medicaments and biological substances; Z90.710 Acquired absence of both cervix and uterus
CPT/HCPCS: 36415; 70450; 76770; 80048; 80053; 80069; 81001; 82550; 82570; 82575; 82607; 82728; 82746; 82947; 83540; 83550; 83605; 83735; 84100; 84156; 84300; 84439; 84443; 84550; 85027; 85045; 85651; 87086; 87186; 87641; 93971; 96360; J0696; J0881; J1815; J7030; J7040; J8597; Q0163; 97110; 97530; 97535; 99285-25

== ENCOUNTER 2016-10-09 05:43 | Emergency (ER) | payer MEDICARE, OTHER ==
[~2016-10-09] VITALS: Ht 162.6 cm; Wt 101.6 kg
[~2016-10-09 05:43] MED LIST changes: -ARIP2TAB PO; +ARIP2TAB3 PO; +CALC500T PO; +CLON1PAT2 TD; +DEXT38GE2 PO; +DIVA125C PO; +FERR-26 PO; +FURO40TA4 PO; +GLUC1KIT IM; +INSU100C SQ; +INSU100I13 SQ; -MAGN400O4 PO; +MAGN400O7 PO; +METO10SO PO; +MIRT15TA PO; +MONT10TA9 PO; +SENN-37 PO; +SPIR25TA PO; +[UNRECOGNIZED DRUG - CODE] TP
--- NOTE | 2016-10-09 05:56 | PHYS DOC ---
Past Medical History Past Medical History: Anxiety, Bronchitis, Depression, Diabetes-Type II, Hypertension Additional Past Medical Histor: DIARRHEA, URIS, GEN PAIN, N/V, ESOPHAGITIS Past Surgical History: Cholecystectomy, Tonsillectomy, Other Additional Past Surgical Histo: hernia repair Alcohol Use: None Drug Use: None Adult General Chief Complaint Chief Complaint: MECHANICAL FALL HPI HPI Patient is a 81 year old female presenting to the emergency department for head neck and mid back pain status post fall from her bed. Reportedly she is on hospice but the nurse did not know why she is on hospice and EMS did not know why she is on hospice and patient says that she is not hospice. Patient has a long list of medical conditions including diabetes renal disease etc. after calling the facility they said that she is on hospice for metabolic encephalopathy. Review of Systems Review of Systems UNABLE TO OBTAIN DUE TO CONFUSION Allergies Allergies Allergies Coded Allergies Type Severity Reaction Last Updated Verified Penicillins Allergy Intermediate "Throat itches and closes up" PER PT NO ALLERGY 07/28/16 Yes citalopram Allergy Intermediate Unknown 07/27/16 Yes I S O L A T I O N *CONTACT* Allergy Unknown 07/28/16 Yes aspirin Adverse Reaction Intermediate Nausea and Vomiting 07/27/16 Yes Physical Exam Physical Exam Constitutional: Well developed, well nourished, no acute distress, non-toxic appearance. [] HENT: Normocephalic, atraumatic, bilateral external ears normal, oropharynx moist, no oral exudates, nose normal. [] Eyes: PERRLA, EOMI, conjunctiva normal, no discharge. [] Neck: c spine collar in place Cardiovascular:Heart rate regular rhythm, no murmur [] Lungs & Thorax: Bilateral breath sounds clear to auscultation [] Abdomen: Bowel sounds normal, soft, no tenderness, no masses, no pulsatile masses. [] Skin: Warm, dry, no erythema, no rash. [] Back: + midline T spine ttp. No midline L spine ttp, no CVA tenderness. [] Extremities: No tenderness, no cyanosis, no clubbing, ROM intact, no edema. [] Neurologic: Alert and oriented X 1, moves all ext. EKG EKG [] Radiology/Procedures Radiology/Procedures [] Course & Med Decision Making Course & Med Decision Making Patient is on hospice not going to do labs or urine. Even if she has a traumatic fracture or head bleed does not sound like she would be a good surgical candidate. We will go ahead and check images and then likely send her back. Transfer of care to Dr. Hardy at 0600. Joy Disclaimer Joy Disclaimer This electronic medical record was generated, in whole or in part, using a voice recognition dictation system. Departure Departure Impression: Primary Impression: CHI (closed head injury) Referrals: STEVE ALMENDAREZ (PCP) Problem Qualifiers Primary Impression: CHI (closed head injury) Encounter type: initial encounter Qualified Codes: S09.90XA - Unspecified injury of head, initial encounter SOY NIELSEN DO Oct 09, 2016 05:56
--- NOTE | 2016-10-09 06:47 | RAD ---
INDICATION: pt fell; head and neck pain. COMPARISON: None. TECHNIQUE: Axial CT images obtained through the head and cervical spine without intravenous contrast. Coronal and sagittal reformats processed of cervical spine. One or more of the following individualized dose reduction techniques were utilized for this examination: 1. Automated exposure control; 2. Adjustment of the mA and/or kV according to patient size; 3. Use of iterative reconstruction technique. FINDINGS: Head: No definite midline shift. There is a large amount of patient motion and the patient had to be scanned multiple times in order to obtain images. Suprasellar cistern is not effaced. Scattered foci of low attenuation within the white matter. There is not a definite large hemorrhage seen. Cervical: No definite acute fracture. No significant malalignment. No evidence of perivertebral hematoma. Degenerative changes of cervical spine. IMPRESSION: The patient was having trouble tolerating the exam at this time and there is motion which limits this examination. No evidence of a large hemorrhage or midline shift. Low attenuation within the white matter. Nonspecific but can be seen with chronic small vessel ischemic disease. Degenerative changes of the cervical spine without a definite acute fracture. Suspected right lobe of thyroid nodule. Ultrasound can better evaluate. Calcific atherosclerosis. Electronically signed by: Yash Isbell MD (10/09/2016 6:43 AM) [email or web address]
--- NOTE | 2016-10-09 06:56 | RAD ---
INDICATION: upper back pain after fall COMPARISON: None. TECHNIQUE: Axial CT images obtained through the thoracic spine. One or more of the following individualized dose reduction techniques were utilized for this examination: 1. Automated exposure control; 2. Adjustment of the mA and/or kV according to patient size; 3. Use of iterative reconstruction technique. FINDINGS: Large amount of motion on this examination. There are portions of the thoracic spine that are not evaluated on this exam. There are some degenerative changes identified. Calcified masslike structure right pulmonary hilum measuring approximately 2 cm. Could be calcified lymph nodes within the region from sequela of old granulomatous disease but nonspecific. Calcific atherosclerosis. IMPRESSION: Large amount of motion on this examination which obscures regions of the thoracic spine. This makes a portion of the thoracic spine nondiagnostic in nature. If the patient can better tolerate the exam it can be repeated at a later time. Electronically signed by: Yash Isbell MD (10/09/2016 6:52 AM) [facility]
--- NOTE | 2016-10-09 08:19 | RAD ---
CT lumbar spine without contrast 10/09/2016 at 0734 hours Indication: Back pain Comparison: CT abdomen/pelvis 11/20/2014 Technique: Portable noncontrast axial CT images of the lumbar spine were obtained. Coronal and sagittal reformats are provided. Findings: There is minimal levocurvature of the lumbar spine. Sagittal alignment is normal. There is no vertebral body height loss. There is mild disc space narrowing with anterior marginal osteophytosis at L1-L2, L2-L3 and L3-L4. There is moderate to severe facet arthropathy at L4-L5 and L5-S1, left greater than right. There is no significant osseous spinal canal stenosis. There is moderate left neuroforaminal stenosis at L5-S1. Splenic vascular calcifications are present. Dense atherosclerotic obscuration of the abdominal aorta is present. Kidneys appear normal as visualized. Colonic diverticulosis without adjacent inflammatory changes. Impression: 1. Moderate to severe facet arthropathy at L4-L5 and L5-S1 with moderate left neural foraminal stenosis at L5-S1. No significant spinal canal stenosis. 2. Colonic diverticulosis without CT evidence for diverticulitis. PQRS Compliance Statement: One or more of the following individualized dose reduction techniques were utilized for this examination: 1. Automated exposure control 2. Adjustment of the mA and/or kV according to patient size 3. Use of iterative reconstruction technique
[2016-10-09] MEDS ORDERED: METOPROLOL TART IMMED RELEASE 50 MG TABLET. PO ONE (08:45)
--- NOTE | 2016-10-09 08:48 | RAD ---
CT thoracic spine without contrast 10/09/2016 at 0734 hours Indication: Back pain Comparison: CT chest 03/07/2014 Technique: Multiple noncontrast axial CT images of the thoracic spine were acquired without intravenous contrast. Coronal and sagittal reformats are provided. Findings: Sagittal alignment of the thoracic spine is normal. Anterior marginal osteophytes are noted at T2-T3 T6-T7, T7-T8, T8-T9 and through T11-T12. There is a posterior disc osteophyte complex at T1-T2 with mild spinal canal stenosis. Mild multilevel facet arthropathy. No significant spinal canal stenosis. Mild osseous neural foraminal stenosis at T10-T11 bilaterally. No significant vertebral body height loss. No acute fracture is identified. Visualized ribs are intact. Thyroid gland is heterogeneous with a posterior right thyroid nodule measuring 2.3 x 1.6 cm, stable dating back to 03/07/2014 and likely benign. Thoracic aorta is normal in course and caliber with scattered atherosclerotic calcifications. Underlying prevascular lymph nodes are identified measuring up to 8 mm by short axis. Calcified right hilar lymphadenopathy is present. Vascular calcifications involving the coronary vasculature. Impression: 1. No acute fracture or malalignment. 2. Mild to moderate multilevel degenerative disc disease. 3. 2.3 x 1.6 cm right lobe posterior thyroid nodule is stable dating back to 03/07/2014. PQRS Compliance Statement: One or more of the following individualized dose reduction techniques were utilized for this examination: 1. Automated exposure control 2. Adjustment of the mA and/or kV according to patient size 3. Use of iterative reconstruction technique
[2016-10-09 09:10] VITALS: BP 226/93
== END 2016-10-09 09:14 | disposition home or self-care (01) ==
LOC: ER 05:43
DX: S09.90XA Unspecified injury of head, initial encounter (principal); E11.9 Type 2 diabetes mellitus without complications; F41.9 Anxiety disorder, unspecified; F32.9 Major depressive disorder, single episode, unspecified; I10 Essential (primary) hypertension; Z88.0 Allergy status to penicillin; Z90.49 Acquired absence of other specified parts of digestive tract; Z88.8 Allergy status to other drugs, medicaments and biological substances; Z88.6 Allergy status to analgesic agent; Z91.041 Radiographic dye allergy status; W06.XXXA Fall from bed, initial encounter; Y93.89 Activity, other specified; Y92.89 Other specified places as the place of occurrence of the external cause; Y99.8 Other external cause status
CPT/HCPCS: 70450; 72125; 72128; 72131; 99284-25